=== PATIENT | male | born 1955 | race African-American/Black ===

== ENCOUNTER 2016-10-26 13:07 | Inpatient (IN) | payer OTHER ==
--- NOTE | ~2016-10-26 | OP ---
Record Of Operation [facility] [address] [place]. [address] NAME: MIRIAM ZHANG : 57 STATUS : ADM IN PAT#: [id number] AGE: 61 ADM/REG DATE : 10/26/16 MR#: [id number] REPORT SERV DATE: 10/27/16 DICTATED BY: JENNIFER COOL DATE: 10/27/16 REPORT STATUS : Draft TRANSCRIBED BY: MODL DATE: 10/27/16 DATE OF PROCEDURE: 10/27/2016 ATTENDING: Jennifer Cool MD COMMUNICATIONS PROGRAM MANAGER: None. PREPROCEDURE DIAGNOSIS: Acute kidney injury. POSTPROCEDURE DIAGNOSIS: Acute kidney injury. PROCEDURE PERFORMED: Right common femoral vein Vas-Cath. ANESTHETIC: Local anesthetic. ESTIMATED BLOOD LOSS: Minimal. COMPLICATIONS: None. INDICATIONS: I was called by Mr. Zhang earlier today by the pony ride operator who wanting to perform CRRT on Mr. Zhang for acute kidney injury. We had consent from the family. PROCEDURE COURSE: The patient was in the ICU in supine position. His right groin was examined and was free of infection. We sterilized the right groin with ChloraPrep. We prepped and draped the right groin in a standard fashion. We used the ultrasound to identify the right common femoral vein. It was patent and free of thrombus. We anesthetized the skin and accessed the vein under ultrasound guidance. Once we had access, a wire was passed into the iliac system. The needle was removed and then we widened the entry site with 11-blade scalpel. We passed a series of dilators to dilate up the skin and vein tract after which we inserted a 20 cm straight Vas-Cath over the wire into position, after which the stylet and wire were removed. The catheter flushed and aspirated with ease and caps were placed on the catheter after flushing maneuvers. We sutured the catheter to the skin using interrupted silk suture. Sterile dressing was applied. The patient tolerated the procedure well. He was left in the ICU in stable condition. ROBERT/VALE Jennifer Cool MD / [id number] CC: Lise Obregon MD
--- NOTE | ~2016-10-26 | DS ---
Discharge Summary [facility] [address] [place]. [address] NAME: MIRIAM ACUÑA : 57 STATUS : ADM IN PAT#: [id number] AGE: 61 ADM/REG DATE : 10/26/16 MR#: [id number] REPORT SERV DATE: 11/19/16 DICTATED BY: MICK GROVE DATE: 11/18/16 REPORT STATUS : Draft TRANSCRIBED BY: MODL DATE: 11/18/16 ADMISSION DATE: 10/26/2016 DISCHARGE DATE: 11/18/2016 DISCHARGE DIAGNOSES: 1. Acute gout. 2. End-stage renal disease, currently on hemodialysis. 3. Ischemic cardiomyopathy, currently stable. 4. Chronic atrial fibrillation. 5. Ols-szzebqp-xosofittz diabetes. 6. Generalized debility. 7. Hypertension. 8. Chronic systolic heart failure, currently compensated. 9. Gastrointestinal bleeding, currently stable. 10.Acute hypoxic respiratory failure. 11.Metabolic encephalopathy, resolved. 12.Hypovolemic shock, corrected. 13.Thrombocytopenia, currently resolved. 14.Hyperbilirubinemia, stable at this time. 15.Anemia, acute on chronic. CONSULTANTS DURING THIS HOSPITALIZATION: 1. Dr. Kan Ty [facility]. 2. Dr. Toñito Hairston. 3. Dr. Maren Benitez. 4. Dr. Randal Cool. 5. Dr. Kan Palm. INVASIVE PROCEDURES DONE DURING THIS HOSPITALIZATION: Placement of dialysis access by Dr. Cool. BRIEF HISTORY OF PRESENT ILLNESS: The patient is a 61-year-old, male, presented with ischemic cardiomyopathy, biventricular pacer, and GI bleed with supratherapeutic INR and bleeding. So he was admitted. For detailed history and physical exam, please see note dictated by Dr. Lise Obregon on 10/26/2016. HOSPITAL COURSE: After being admitted to the hospital, this patient was immediately placed in the Intensive Care Unit. Please refer to interim summary dictated by Dr. Maren Benitez and Dr. Kan Palm on 11/03 and 11/09 respectively. We received the patient on to the floor on 11/13/2016. This patient was fairly stable. His H and H remained stable. He has no evidence of further GI bleeding. At this time, we are going to initiate his Coumadin therapy. Again, this patient was noted to have end-stage renal disease and he has now been started on dialysis. He will be dialyzed 3 times a week. He has cardiomyopathy and his ejection fraction is 35%. His rate is controlled. He continues to be on oral amiodarone, digoxin, and Coreg. His diabetes is well managed with Levemir. His anemia once again is stable. This patient had an acute flare-up of gout for which he received colchicine which Discharge Summary [address] [address] NAME: MIRIAM ACUÑA : 57 STATUS : ADM IN PAT#: [id number] AGE: 61 ADM/REG DATE : 10/26/16 MR#: [id number] REPORT SERV DATE: 11/19/16 DICTATED BY: MICK GROVE DATE: 11/18/16 REPORT STATUS : Draft TRANSCRIBED BY: VALE DATE: 11/18/16 will be stopped prior to discharge. He is currently on Medrol Dosepak which will be finished and he has been placed on allopurinol as his home dose. His most recent INR is 1.3 that was done on 11/06. We will have to repeat a PT/INR and Coumadin initiated. Would not heparinize him as he had significant GI bleed. Would suggest resume Coumadin to further continue anticoagulation. This patient is generally debilitated. Physical Therapy has seen the patient and it is recommended that patient be placed in a care home facility for rehab. This patient has been approved and he is awaiting a bed at [facility] which will be available tomorrow. Overall since patient has been on the floor he has done well and he continues to improve medically. DISCHARGE DISPOSITION: To care home facility. DISCHARGE ACTIVITY: Per facility. DISCHARGE DIET: Renal 1800 calorie [place] [employer] Diet. DISCHARGE MEDICATIONS: Allopurinol 100 mg daily, amiodarone 400 mg twice daily, Coreg 6.25 mg twice daily, digoxin 0.125 mg once daily, methylprednisone pack as directed to finish his therapy, Protonix 40 mg twice daily, Florastor one capsule twice daily, Carafate 1 g before each meal four times daily, Levemir 44 units subcu twice daily, Coumadin 6 mg once at bedtime. DISCHARGE FOLLOWUP: With [facility] in the dialysis center. More than 30 minutes spent planning this patient's discharge, reconciling medications, signing all forms for discharge and documenting this discharge. CHRIS/JOJOL Mick Grove M.D. / [id number] CC: Mick Grove M.D.
--- NOTE | ~2016-10-26 | OP ---
Record Of Operation [facility] [address] [place]. [address] NAME: MIRIAM ACUÑA : 57 STATUS : ADM IN [facility]#: [id number] AGE: 61 ADM/REG DATE : 10/26/16 MR#: [id number] REPORT SERV DATE: 10/27/16 DICTATED BY: BRAN SIERRA DATE: 10/27/16 REPORT STATUS : Draft TRANSCRIBED BY: MODL DATE: 10/27/16 DATE OF PROCEDURE: INTUBATION NOTE REASON FOR INTUBATION: Acute hypoxemic respiratory failure and encephalopathy, and inability to protect airway in the setting of critical illness. PREMEDICATION: Etomidate 30 mg IV x1 and Rocuronium 100 mg IV x1 for rapid sequence intubation. PROCEDURE IN DETAIL: A #4 GlideScope blade was advanced into the mouth after premedication with rapid sequence intubation that was described above. A #8 ET tube was passed through the vocal cords under direct visualization on first attempt and secured to the patient with batwing adhesive device including a bite block. There were bilateral breath sounds. Positive color change on CO2 detector and condensation in the tube with bagging. There were no breath sounds auscultated over the fundus of the stomach with bagging. Followup chest x- ray is pending at the time of this dictation. We will follow up. Lowest oxygen saturation during the procedure was 99%. MK/VALE Bran Sierra MD / [id number] CC: Lise Obregon MD
--- NOTE | ~2016-10-26 | IDS ---
Interim Discharge Summary [facility] [address] [place] [place]. [address] NAME: MIRIAM ACUÑA : 57 STATUS : ADM IN [facility]#: [id number] AGE: 61 ADM/REG DATE : 10/26/16 MR#: [id number] REPORT SERV DATE: 11/09/16 DICTATED BY: JAIME PALM IV DATE: 11/08/16 REPORT STATUS : Draft TRANSCRIBED BY: VALE DATE: 11/08/16 ADMISSION DATE: 10/26/2016 DISCHARGE DATE: Date of beginning of the summary is 11/04/2016. Date of end of the summary is 11/08/2016. SIGNIFICANT DIAGNOSES: 1. Acute hypoxemic respiratory failure, now extubated. 2. Persistent shock, off vasopressor agents. 3. Enterobacter bronchitis, on cefepime. 4. Wheezing with improvement on bronchodilator medications. 5. Atrial fibrillation with rapid ventricular response. With adjustments of medications, better rate control. 6. Acute kidney injury. Who continues on continuous renal-replacement therapy. 7. Gastrointestinal bleed without initiation of anticoagulation at this time. 8. Diabetes mellitus. NEW CONSULTANTS OF THE PATIENT: We consulted Dr. Sena for placement of a PermCath. NEW PROCEDURE: PermCath placement on the 11/06/2016. HOSPITAL COURSE: The patient was still on the ventilator on the 11/04/2016. The patient did tolerate some weaning trials, however, had no air leak. He had increase in his systemic steroids with improvement. The patient's extubation was delayed until the 11/07/2016 because of the need for PermCath placement on the 11/06/2016. The patient tolerated extubation without event. He had improvement of his chest radiograph which demonstrated predominantly pulmonary edema with a right effusion. The patient remained on CRRT with removal fluid. There were some difficulties with control of his rate for which he was placed on oral amiodarone. Because of the bleed and the coagulopathy, he remained on pneumatic compression stockings for DVT prophylaxis. The patient did have oozing even from his PermCath placement, though would may need to discuss with Cardiology re-initiation of anticoagulation therapy as an outpatient. He grew Enterobacter from his sputum for which he is on cefepime with clinical improvement. Again, his clinical exam markedly improved with the use of bronchodilator medications. The patient is tolerating a diet with the planned CRRT to stop and then likely transition to hemodialysis this weekend. The patient had stable hemoglobin throughout the week. NM/JOJOL Jaime Palm IV, M.D. Interim Discharge Summary [address] [address] NAME: MIRIAM ACUÑA : 57 STATUS : ADM IN PAT#: [id number] AGE: 61 ADM/REG DATE : 10/26/16 MR#: [id number] REPORT SERV DATE: 11/09/16 DICTATED BY: JAIME PALM IV DATE: 11/08/16 REPORT STATUS : Draft TRANSCRIBED BY: VALE DATE: 11/08/16 / [id number] CC: Lise Obregon MD
--- NOTE | ~2016-10-26 | OP ---
Record Of Operation [facility] [address] [place]. [address] NAME: MIRIAM ACUÑA : 57 STATUS : ADM IN [facility]#: [id number] AGE: 61 ADM/REG DATE : 10/26/16 MR#: [id number] REPORT SERV DATE: 11/06/16 DICTATED BY: JENNIFER COOL DATE: 11/06/16 REPORT STATUS : Draft TRANSCRIBED BY: MODL DATE: 11/06/16 DATE OF PROCEDURE: 11/06/2016 ATTENDING: Jennifer Cool MD SENIOR CONTROLS TECHNICIAN: None. PREPROCEDURE DIAGNOSIS: End-stage renal disease. POSTPROCEDURE DIAGNOSIS: End-stage renal disease. PROCEDURE PERFORMED: PermCath placement right IJ vein with ultrasound and fluoroscopic guidance. ANESTHESIA: MAC and local. SPECIMENS: None. ESTIMATED BLOOD LOSS: Minimal. COMPLICATIONS: None. INDICATIONS: The patient is in the ICU with acute kidney injury and on CRRT dialysis for the last 10 days. He needed more permanent solution for dialysis and was offered PermCath. OPERATIVE COURSE: The patient was brought to the operating room, placed supine position on the operating room table. The patient had general anesthetic without complications. The right neck and chest were prepped and draped in sterile fashion. A time-out was performed. Identified the correct patient, procedure, and site. We began by using ultrasound to identify the right IJ vein. It was compressible and free of thrombus. We anesthetized the skin and accessed the vein under ultrasound guidance. A copy of this picture was placed on the chart for review. Once we had access, wire was passed down through the cardiac chambers into the IVC. The needle was then removed, and we widened the entry site using 11 blade scalpel. We then selected a site on the chest for catheter exit, and we made an 11 blade incision there. We then tunneled the catheter from the chest site to the neck site. We then used a series of dilators to dilate up the skin and vein tract at the IJ site. We then inserted the right breakaway sheath into position under fluoroscopy. Once in position, the wire and dilator were then removed. We then advanced the catheter through the sheath into proper position. The sheath was then split and removed while keeping the catheter in place. The catheter was flushed and aspirated and did both with ease. The catheter was affixed to the skin using interrupted nylon suture. The neck site was closed with interrupted Monocryl suture, and caps were placed on the catheter and a sterile dressing was applied. The patient tolerated the procedure well and was transferred back to the ICU in stable condition. Record Of Operation [facility] [id number] [place]. [address] NAME: MIRIAM ACUÑA : 57 STATUS : ADM IN PAT#: [id number] AGE: 61 ADM/REG DATE : 10/26/16 MR#: [id number] REPORT SERV DATE: 11/06/16 DICTATED BY: JENNIFER COOL DATE: 11/06/16 REPORT STATUS : Draft TRANSCRIBED BY: MODHemant DATE: 11/06/16 [facility]/VALE Jennifer Cool MD / [id number] CC: Lise Obregon MD
--- NOTE | ~2016-10-26 | HP ---
History And Physical [facility] [address] [place]. [address] NAME: MIRIAM ACUÑA : 57 STATUS : ADM IN [facility]#: [id number] AGE: 61 ADM/REG DATE : 10/26/16 MR#: [id number] REPORT SERV DATE: 10/26/16 DICTATED BY: LISE OBREGON DATE: 10/26/16 REPORT STATUS : Draft TRANSCRIBED BY: MODHemant DATE: 10/26/16 DATE OF ADMISSION: 10/26/2016 REASON FOR ADMISSION: GI bleed, hypotension. HISTORY OF PRESENT ILLNESS: Mr. Acuña is a 61-year-old male with a past medical history of ischemic cardiomyopathy, biventricular pacemaker, history of GI bleed, on chronic Coumadin therapy. Again, he comes in with a supratherapeutic INR and bleeding. He has had been having feelings of loss of energy over the last three days with a change in his stool, in which, he has bloody bowel movements which are dark maroon color. Unfortunately, he also now has acute on chronic kidney injury with hyperkalemia. The patient has been treated here in the emergency room, GI has been called. Currently, getting reversal agents for his elevated INR, Coumadin has been held. PAST MEDICAL HISTORY: Ischemic cardiomyopathy, chronic atrial fibrillation, diabetes, stage 3 chronic kidney disease, chronic systolic heart failure. HOME MEDICATIONS: Home medication list reviewed and is filled out. ALLERGIES: NO KNOWN DRUG ALLERGIES. FAMILY HISTORY: Other family members with heart disease. SOCIAL HISTORY: The patient currently is by himself. No alcohol or illicit drug use. REVIEW OF SYSTEMS: All per a review of systems reviewed and is otherwise negative. PHYSICAL EXAMINATION: VITAL SIGNS: Afebrile, heart rate currently in 90s, blood pressure currently in the 80s systolic, oxygen saturation 100% on 2 L nasal cannula. GENERAL: The patient is currently sleepy, easily arousable, has a quick onset of sleep and states that he has a history of sleep apnea, but he is not using CPAP therapy, not interested in attempting that currently. HEENT: No JVD, no lymphadenopathy, neck is supple. PULMONARY: Lungs are clear to auscultation bilaterally, no wheezing. CARDIAC: Regular rate, no murmurs, somewhat distant. ABDOMEN: Soft, nontender, nondistended with positive bowel sounds. EXTREMITIES: Lower extremity has edema, lukewarm, faint pulses. LABORATORY EXAMINATION: Hemoglobin 7.4, and INR 8.3, potassium 6.4, creatinine 8.2, BUN 101. BNP 941, with a troponin of 0.13. ASSESSMENT/PLAN: Mr. Acuña is a 61-year-old gentleman with a past medical history noted above, who presents to the intensive care unit with a GI bleed and acute on chronic kidney injury. History And Physical [address] [address] NAME: MIRIAM ACUÑA : 57 STATUS : ADM IN [facility]#: [id number] AGE: 61 ADM/REG DATE : 10/26/16 MR#: [id number] REPORT SERV DATE: 10/26/16 DICTATED BY: LISE OBREGON DATE: 10/26/16 REPORT STATUS : Draft TRANSCRIBED BY: VALE DATE: 10/26/16 1. Gastrointestinal bleed: The patient is currently off Coumadin therapy, received fresh frozen plasma, and he is receiving his first unit of blood. He will then receive fresh frozen plasma and then an another unit of blood. We will also start him on IV fluids. 2. Hemorrhagic shock: As noted above, the patient is getting blood products, FFP, and an IV fluids for. 3. 48 hours. 4. Acute on chronic kidney injury: Most likely, prerenal etiology. At this moment in time, we will insert a Hoffmann, I would treat his hyperkalemia and check BMP in a short period of time, in case he needs either Kayexalate or further treatment thereof. 5. Atrial fibrillation: We will restart home digoxin, but hold black on beta glenn therapy. We will hold anticoagulation, recommend that there is a conversation between Cardiology and Gastroenterology with the concern of this patient being on Coumadin, as the patient has now failed twice with a supratherapeutic INR. Whether this patient will be a candidate for Pradaxa as here is an antidote for Pradaxa currently in the works. However, there is high risk of GI bleed with Pradaxa of note. We would recommend a further discussion once the patient is not so critical with the discussion of his anticoagulation strategy, as he clearly is not adequately controlled. From that standpoint. 6. Diet: The patient is currently n.p.o. 7. Code status: The patient is currently full code. 8. hyperkalemia: As noted above. 9. Critical care time: 45 minutes. HFQ/MODL Lise Obregon MD / [id number] CC: Lise Obregon MD
--- NOTE | ~2016-10-26 | CN ---
Consultation Report [facility] [address] [place]. [address] NAME: MIRIAM ACUÑA : 57 STATUS : ADM IN [facility]#: [id number] AGE: 61 ADM/REG DATE : 10/26/16 MR#: [id number] REPORT SERV DATE: 10/27/16 DICTATED BY: TOÑITO HAIRSTON DATE: 10/26/16 REPORT STATUS : Draft TRANSCRIBED BY: MODL DATE: 10/26/16 CONSULTATION REPORT DATE OF CONSULTATION: 10/26/2016 INDICATION: Patient with severe anemia. HISTORY OF PRESENT ILLNESS: The patient is a 61-year-old gentleman with multiple cardiac history, cardiomyopathy with ejection fraction of 35%. The patient was recently admitted in September for GI bleed. Dr. Somers performed the panendoscopy and colonoscopy. I do not believe any significant findings were noted. There is only a colonoscopy report. Upper endoscopy report is not available. The patient is now presenting, feeling weak with shortness of breath with a hemoglobin of 7.5, INR of 8.3. PAST MEDICAL HISTORY: Chronic systolic heart failure, cardiomyopathy, renal insufficiency, diabetes, atrial fibrillation, gout. MEDICATIONS: See NOV. ALLERGIES: NO KNOWN DRUG ALLERGIES. PHYSICAL EXAMINATION: VITAL SIGNS: Temperature is 96.9, blood pressure 89/48, pulse of 70. HEAD: Normocephalic, atraumatic. THROAT: Clear. LUNGS: Decreased breath sounds. HEART: S1, S2 with 2/6 systolic ejection murmur. ABDOMEN: Normoactive bowel sounds. Soft, nondistended, nontender. EXTREMITIES: 1+ edema. LABORATORY STUDIES: Show sodium 136, potassium 6.5, BUN 108, creatinine 8.23, white count of 7.9, H and H of 7.5 and 22.6, platelet count of 113, prothrombin time of 68 with INR of 8.3. IMPRESSION: Patient with severe anemia, exacerbated by anticoagulation. Hold Coumadin. Agree with fresh frozen and transfusion. Follow H and H. Dr. Somers will review his records on Friday to see if repeat endoscopy is necessary. HP/VALE Toñito Hairston M.D. Consultation Report [facility] [address] [address] NAME: MIRIAM ACUÑA : 57 STATUS : ADM IN PAT#: [id number] AGE: 61 ADM/REG DATE : 10/26/16 MR#: [id number] REPORT SERV DATE: 10/27/16 DICTATED BY: TOÑITO HAIRSTON DATE: 10/26/16 REPORT STATUS : Draft TRANSCRIBED BY: VALE DATE: 10/26/16 / [id number]
--- NOTE | ~2016-10-26 | IDS ---
Interim Discharge Summary [facility] [address] [place]. [address] NAME: MIRIAM ACUÑA : 57 STATUS : ADM IN [facility]#: [id number] AGE: 61 ADM/REG DATE : 10/26/16 MR#: [id number] REPORT SERV DATE: 11/03/16 DICTATED BY: BRAN SIERRA DATE: 11/03/16 REPORT STATUS : Draft TRANSCRIBED BY: MODL DATE: 11/03/16 ADMISSION DATE: 10/26/2016 DISCHARGE DATE: DATE OF SUMMARY: 11/03/2016. HISTORY OF PRESENT ILLNESS: Mr. Acuña is a 61-year-old gentleman with the underlying history of ischemic cardiomyopathy, status post biventricular pacemaker with previous history of GI bleeding last month requiring admission to the MICU. He was on chronic Coumadin therapy at that point. He returned with supratherapeutic INR and bleeding after his Coumadin was restarted following hospitalization, complaining of generalized weakness and bloody bowel movements. Of note, he was also found to have acute kidney injury with marked hyperkalemia and was admitted to the CCU by Dr. Obregon on 10/26/2016. He was later seen by Nephrology, who initiated CRRT in the setting of metabolic acidosis and hypovolemic shock. He underwent correction of his Coumadin coagulopathy with FFP, vitamin K, and received several transfusions of packed red cells. He was intubated for airway protection shortly after admission and required both vasopressin and Levophed for hemodynamic support and does have been weaned throughout the week. He has also been on stress dose steroids. At this point, he is clinically improving. Mechanical ventilation support is being weaned and volume removal via ultrafiltration is in process. He was weaned off the last bit of Levophed yesterday and has been more awake and alert since we have lightened his sedation. Over the last couple of days, he does follow commands. ACTIVE PROBLEM LIST: 1. Acute hypoxemic respiratory failure, this is ventilator day 8, continue daily spontaneous breathing trials off sedation, ongoing ultrafiltration for volume removal, we will certainly facilitate to extubation. Of note, he does have a right pleural effusion, which may require thoracentesis in Interventional Radiology to expedite vent weaning. 2. Acute renal failure, requiring CRRT which was started on 10/27/2016. 3. Gastrointestinal bleed with supratherapeutic INR, status post Coumadin use, now with an H and H stable in the seven to eight range without any clinical evidence of bleeding. We will continue to monitor him closely and the Coumadin remains on hold. 4. Acute blood loss anemia, secondary to #3. 5. Hypovolemic plus or minus septic shock with associated metabolic acidosis, which is remarkably improved. He has now been weaned off all pressors and his acidosis has been corrected. 6. Thrombocytopenia in the setting of critical illness. Continue to monitor. 7. Upward trending in a total bilirubin with upward trending INR without ongoing Coumadin use. We will check abdominal ultrasound. I suspect that medications being administered during his hospitalization may be the culprit. 8. Prophylaxis, SCDs and MARIO's in the setting of GI bleeding. He was on a proton pump inhibitor infusion and has been scaled back to IV b.i.d. by Dr. Somers, who has been following along for gastroenterology. He is a full code and we have updated his family multiple times throughout the week. His Interim Discharge Summary [address] [address] NAME: MIRIAM ACUÑA : 57 STATUS : ADM IN [facility]#: [id number] AGE: 61 ADM/REG DATE : 10/26/16 MR#: [id number] REPORT SERV DATE: 11/03/16 DICTATED BY: BRAN SIERRA DATE: 11/03/16 REPORT STATUS : Draft TRANSCRIBED BY: VALE DATE: 11/03/16 sister and daughter are his primary medical decision makers and have visited a couple of times, but were limited by transportation as they ride the bus. Please call with questions. MK/VALE Bran Sierra MD / [id number] CC: Lise Obregon MD
--- NOTE | ~2016-10-26 | DS ---
Discharge Summary [place] [id number] [place]. [address] NAME: MIRIAM ACUÑA : 57 STATUS : DIS IN PAT#: [id number] AGE: 61 ADM/REG DATE : 10/26/16 MR#: [id number] REPORT SERV DATE: 11/20/16 DICTATED BY: SARWAT SEXTON DATE: 11/19/16 REPORT STATUS : Draft TRANSCRIBED BY: MODL DATE: 11/19/16 ADMISSION DATE: 10/26/2016 DISCHARGE DATE: 11/19/2016 ADDENDUM: Original discharge summary dictated by Dr. Grove on 11/18/2016. The patient had been cleared for a safe transition to [facility]. A bed only became available today. He was seen by the undersigned. His right wrist, left ankle, and both knees symptomatic gouty arthritic joints were improved. He noted that he did not like the food here, so he was not eating as much. He was noted to have blood sugars as low as 60 and all blood sugars on 11/18/2016 had been 85 or less. On exam, he was appropriate. His lungs were clear. His heart was regular with a systolic murmur. His abdomen was nontender. He had left wrist, both knees, and left ankle puffiness and mild tenderness to palpation. He had a nontender PICC in his right arm. His white count was 5.8, hemoglobin 8.5, and platelets 141,000. His renal function profile: Sodium 140, potassium 4.5, chloride 105, CO2 of 23, BUN 39, creatinine 4.19, glucose 61, calcium 8.5, phosphorus 2.2, and albumin 2.6. Blood sugars are as noted. It was felt that he still maintained a degree of stability where he could be safely transitioned to [facility] as outlined by Dr. Grove. All medications reviewed. The only changes on transfer today will be using correction 2 scale insulin before meals but not at bedtime and holding b.i.d. Levemir 4 units unless his blood sugar is greater than 140. Above discussed with RN, ed case manager, and [facility] liaison. Discharge time greater than 30 minutes. DD/JOJOL Sarwta Sexton M.D. / [id number] CC: Discharge Summary [address] [facility] [place] [address] NAME: MIRIAM ACUÑA : 57 STATUS : DIS IN PAT#: [id number] AGE: 61 ADM/REG DATE : 10/26/16 MR#: [id number] REPORT SERV DATE: 11/20/16 DICTATED BY: SARWAT SEXTON DATE: 11/19/16 REPORT STATUS : Draft TRANSCRIBED BY: MODL DATE: 11/19/16 Sarwat Sexton M.D.
--- NOTE | ~2016-10-26 | CN ---
Consultation Report [facility] [address] [place]. [address] NAME: MIRIAM ACUÑA : 57 STATUS : ADM IN PAT#: [id number] AGE: 61 ADM/REG DATE : 10/26/16 MR#: [id number] REPORT SERV DATE: 10/27/16 DICTATED BY: JAIME IZAGUIRRE DATE: 10/26/16 REPORT STATUS : Draft TRANSCRIBED BY: MODL DATE: 10/26/16 DATE OF CONSULTATION: 10/26/2016 REASON FOR CONSULT: Acute kidney injury/CKD/hyperkalemia. HISTORY OF PRESENT ILLNESS: The patient is a 61-year-old, male, who was recently hospitalized at [facility] in September 2016. At that time, he presented with acute kidney injury, but did not require dialysis. Creatinine was 4.5, on admission and improved to 1.6, at which time, nephrology signed off on October 09. An outpatient lab performed on October 16, showed creatinine of 3.3, with potassium of 4.8. He came in earlier today to the emergency room with a several hour history of melanotic stool. On presentation his BUN was 101, creatinine is 8.3, potassium 6.4, digoxin 0.3. He was hypotensive and started on IV fluids. Repeat labs this afternoon showed BUN 108, creatinine 8.2, and potassium 6.5. Hoffmann catheter was placed and only 100 mL of urine was obtained. He is in the ICU and blood pressure at the time of my consult has dropped precipitously. He has now been given albumin and we are trying to obtain another IV access. PAST MEDICAL HISTORY: 1. Chronic kidney disease with baseline creatinine 1.3-1.5, as recently as August 2016 with recent acute kidney injury, as per HPI. 2. AICD/EF 35%. 3. Atrial fibrillation with chronic Coumadin. 4. Endoscopy September 2016, with polyps, but they were not removed because of anticoagulation. 5. Imj-bpbhmvp-iwqfahdao diabetes mellitus on metformin. 6. Obesity with suspected sleep apnea. 7. Gout. MEDICATIONS: At home, allopurinol 200 mg daily, Bumex 1 mg daily, Coreg 25 mg b.i.d., digoxin 0.125 mg daily, BiDil 20/37.5 mg three times per day, lisinopril 2.5 mg daily, magnesium oxide, metformin 500 mg daily, Protonix 40 mg b.i.d., potassium 40 mEq daily, Carafate 1 g q.a.c. and bedtime, Coumadin 6 mg at bedtime. FAMILY HISTORY: No ESRD. SOCIAL HISTORY: Nonsmoker. Single. REVIEW OF SYSTEMS: Significant for events as per HPI with recent hospitalization here in September 2016 and GI bleed. PHYSICAL EXAMINATION: VITAL SIGNS: Temperature 96.9, pulse 70, respirations 16, blood pressure 89/48. GENERAL: He is a pleasant, male, who awakens, but falls back asleep very easily. He does answer questions appropriately. Consultation Report [address] [place]. [address] NAME: MIRIAM ACUÑA : 57 STATUS : ADM IN [facility]#: [id number] AGE: 61 ADM/REG DATE : 10/26/16 MR#: [id number] REPORT SERV DATE: 10/27/16 DICTATED BY: JAIME IZAGUIRRE DATE: 10/26/16 REPORT STATUS : Draft TRANSCRIBED BY: VALE DATE: 10/26/16 HEENT: Sclerae without icterus. Conjunctivae not injected. Oropharynx is clear. Mucous membranes are dry. No JVD. HEART: He has paced rhythm regular 2/6 murmur. No rub. He has bilateral rhonchi without dyspnea or tachypnea. ABDOMEN: Obese, soft, nontender, nondistended. Bowel sounds present throughout without rebound, guarding, peritoneal signs. He has 1+ bilateral pitting edema. SKIN: Shows no rash. NEURO: Grossly nonfocal. He has minimal urine output in the Hoffmann catheter. LABORATORY DATA: Sodium 136, potassium 6.5, BUN 108, creatinine 8.2, calcium 8.1, albumin 2.3. Total bilirubin 2.0, digoxin 0.3, BNP 941, liver function tests normal. Troponin 0.13. Chest x-ray showed cardiomegaly without active infiltrates. A renal ultrasound on 10/01/2016, showed no hydro. White count 7.9000 without eosinophilia, hemoglobin 7.5, platelets 113,000, INR 8.3. ASSESSMENT/PLAN: The patient has chronic kidney disease with previous baseline creatinine 1.3-1.5. He presents with another episode of acute kidney injury in the setting of azotemia, anemia, suspected GI bleed, hypotension with hypovolemic shock. Cardiomyopathy with EF 35%. AICD, hyperkalemia, hypoalbuminemia, and coagulopathy. More than likely, he has another GI bleed and he has developed ATN from renal hypoperfusion due to relative hypotension. Hold AALIYAH inhibitor, metformin, potassium, and diuretics. Pressor support, IV fluids, and albumin urgently tonight. Reverse INR. Hopefully, dialysis can be avoided with fluid resuscitation. However, he may need TELE TECH in the next 24 to 48 hours, however, his coagulopathy will make line placement difficult. We will manage medically tonight and follow closely with you. Appreciate consult. NC/MODL Jaime Izaguirre M.D. / [id number] CC: Lise Obregon MD
[2016-10-26 11:52] LABS: BASOPHILS 0.3 %; BASOPHILS ABSOLUTE 0.02 10/3/uL (0.0-0.16); EOSINOPHILS 1.6 %; EOSINOPHILS ABSOLUTE 0.11 10/3/uL (0.0-0.53); ER CBC TAT 0 Hrs 11 Mins; HEMOGLOBIN 7.4 g/dL (13.6-17.8); IMMATURE GRANULOCYTES 0.1 %; IMMATURE GRANULOCYTES ABSOLUTE 0.01 10/3/uL (0.0-0.11); LYMPHOCYTES 15.6 %; LYMPHOCYTES ABSOLUTE 1.08 10/3/uL (0.67-4.30); MEAN CORPUS HGB CONC 33.6 g/dL (32.0-36.0); MEAN CORPUSCULAR VOLUME 86.3 fL (80-100); MEAN PLATELET VOLUME 9.9 fL (9.2-13.0); MONOCYTES 16.5 %; MONOCYTES ABSOLUTE 1.14 10/3/uL (0.21-1.20); NEUTROPHILS 65.9 %; NEUTROPHILS ABSOLUTE 4.57 10/3/uL (2.02-8.40); RBC DISTRIBUTION WIDTH 16.6 % (12.0-16.0); RED CELL COUNT 2.55 10/6/uL (4.7-6.1); WHITE BLOOD CELLS 6.9 10/3/uL (4.5-10.5)
[2016-10-26 11:55] LABS: MANUAL DIFF NO %; PLATELET COUNT 114 10/3/uL (150-400)
[2016-10-26 12:01] LABS: PARTIAL THROMBO TIME 57.9 SEC (22.5-37.2)
[2016-10-26 12:21] LABS: A/G RATIO 0.5 (0.7-1.9); ALBUMIN 2.3 G/DL (3.5-5.0); CALCIUM, SERUM 8.2 MG/DL (8.5-10.4); CHLORIDE, SERUM 98 MMOL/L (96-112); CO2 (CARBON DIOXIDE) 27 MMOL/L (24-34); GLOBULIN 4.6 G/DL (2.5-4.1); GLUCOSE, SERUM 89 MG/DL (60-99); SGPT(ALT) 10 U/L (5-65); TOTAL PROTEIN 6.9 G/DL (6.0-8.5)
[2016-10-26 12:37] LABS: PROTIME (NOT ORD) 68.1 SEC (12.0-14.5); SGOT(AST) 12 U/L (5-40); SODIUM, SERUM 137 MMOL/L (135-148)
[2016-10-26 12:38] LABS: INTERNATIONAL NORMAL RATI 8.3 UNITS (-)
[2016-10-26 12:53] LABS: ALKALINE PHOSPHATASE 115 U/L (45-117); BUN (BLOOD UREA NITROGEN) 101 MG/DL (6-23); CREATININE 8.27 MG/DL (0.70-1.30); DIGOXIN 0.3 NG/ML (0.8-2.0); GFR AFRICAN AMERICAN 7 ML/MIN (>=60); GFR NON AFRICAN AMERICAN 6 ML/MIN (>=60); POTASSIUM, SERUM 6.4 MMOL/L (3.5-5.3); TROPONIN I 0.13 NG/ML (<0.05)
[2016-10-26 13:07] LABS: ALLENS TEST Pos; BE (BASE EXCESS) -0.6 MEQ/L (0 +/- 2.5); CARBOXYHEMOGLOBIN 2.6 % (0-3); HCO3 (ACTUAL BICARBONATE) 25.3 MEQ/L (23-27); HEMOBLOGIN CONTENT 7.9 G/DL (14-18); INSTRUMENT SERIAL # 8087; METHEMOGLOBIN 0.2 % (0-3); O2 CONTENT 9.9 VOL% (18-24); PCO2 (CO2 TENSION) 48 MMHG (35-45); PO2 (O2 TENSION) 66 MMHG (79-93); SAMPLE Arterial; pH 7.34 (7.37-7.43)
[~2016-10-26 13:07] MED LIST: BC HEADACHE PO; BIDIL20/37 PO; BUM1 PO; COREG25 PO; COUMADIN6 MG PO; DEMA20 PO; DIGITEK0.125 MG PO; GLUCOPHAGE1000 MG PO; HALF81 PO; ICY HOT OINTMENT TOP; ICY HOT16 % TOP; KLOR-CON M2020 MEQ PO; L20 PO; LANTUS SC; LIPITOR40 PO; MAGOX4 PO; PRIN2.5 PO; PROTONIX PO; STOOL SOFTENER PO; SUCR PO; ULTRAM50 PO; Z100 PO
[2016-10-26 17:03] LABS: BASOPHILS 0.1 %; BASOPHILS ABSOLUTE 0.01 10/3/uL (0.0-0.16); EOSINOPHILS 1.4 %; EOSINOPHILS ABSOLUTE 0.11 10/3/uL (0.0-0.53); HEMATOCRIT 22.6 % (40.0-51.0); HEMOGLOBIN 7.5 g/dL (13.6-17.8); IMMATURE GRANULOCYTES 0.3 %; IMMATURE GRANULOCYTES ABSOLUTE 0.02 10/3/uL (0.0-0.11); LYMPHOCYTES 15.4 %; LYMPHOCYTES ABSOLUTE 1.21 10/3/uL (0.67-4.30); MEAN CORPUS HGB CONC 33.2 g/dL (32.0-36.0); MEAN CORPUSCULAR HEMOGLOB 28.4 pg (26.0-34.0); MEAN CORPUSCULAR VOLUME 85.6 fL (80-100); MEAN PLATELET VOLUME 10.4 fL (9.2-13.0); MONOCYTES 19.4 %; MONOCYTES ABSOLUTE 1.53 10/3/uL (0.21-1.20); NEUTROPHILS 63.4 %; NEUTROPHILS ABSOLUTE 4.99 10/3/uL (2.02-8.40); PLATELET COUNT 113 10/3/uL (150-400); RED CELL COUNT 2.64 10/6/uL (4.7-6.1); WHITE BLOOD CELLS 7.9 10/3/uL (4.5-10.5)
[2016-10-26 17:04] LABS: MANUAL DIFF NO %
[2016-10-26 17:16] LABS: CALCIUM, SERUM 8.1 MG/DL (8.5-10.4); CHLORIDE, SERUM 101 MMOL/L (96-112); CO2 (CARBON DIOXIDE) 25 MMOL/L (24-34); CREATININE 8.23 MG/DL (0.70-1.30); GFR AFRICAN AMERICAN 7 ML/MIN (>=60); GFR NON AFRICAN AMERICAN 6 ML/MIN (>=60); GLUCOSE, SERUM 87 MG/DL (60-99); SODIUM, SERUM 136 MMOL/L (135-148)
[2016-10-26 17:17] LABS: BUN (BLOOD UREA NITROGEN) 108 MG/DL (6-23); POTASSIUM, SERUM 6.5 MMOL/L (3.5-5.3)
[2016-10-26 23:06] LABS: BASOPHILS 0.1 %; BASOPHILS ABSOLUTE 0.01 10/3/uL (0.0-0.16); EOSINOPHILS 1.1 %; EOSINOPHILS ABSOLUTE 0.09 10/3/uL (0.0-0.53); HEMATOCRIT 23.1 % (40.0-51.0); HEMOGLOBIN 7.6 g/dL (13.6-17.8); IMMATURE GRANULOCYTES 0.3 %; IMMATURE GRANULOCYTES ABSOLUTE 0.02 10/3/uL (0.0-0.11); LYMPHOCYTES ABSOLUTE 1.03 10/3/uL (0.67-4.30); MEAN CORPUS HGB CONC 32.9 g/dL (32.0-36.0); MEAN CORPUSCULAR HEMOGLOB 28.3 pg (26.0-34.0); MEAN CORPUSCULAR VOLUME 85.9 fL (80-100); MONOCYTES 14.4 %; MONOCYTES ABSOLUTE 1.14 10/3/uL (0.21-1.20); NEUTROPHILS 71.1 %; NEUTROPHILS ABSOLUTE 5.64 10/3/uL (2.02-8.40); PLATELET COUNT 122 10/3/uL (150-400); RBC DISTRIBUTION WIDTH 17.1 % (12.0-16.0); RED CELL COUNT 2.69 10/6/uL (4.7-6.1); WHITE BLOOD CELLS 7.9 10/3/uL (4.5-10.5)
[2016-10-26 23:08] LABS: MANUAL DIFF NO %
[2016-10-26 23:15] LABS: INTERNATIONAL NORMAL RATI 4.3 UNITS (-); PARTIAL THROMBO TIME 52.8 SEC (22.5-37.2)
[2016-10-26 23:20] LABS: PROTIME (NOT ORD) 41.1 SEC (12.0-14.5)
[2016-10-26 23:37] LABS: ALBUMIN 2.4 G/DL (3.5-5.0); BUN (BLOOD UREA NITROGEN) 110 MG/DL (6-23); CALCIUM, SERUM 7.9 MG/DL (8.5-10.4); CHLORIDE, SERUM 99 MMOL/L (96-112); CO2 (CARBON DIOXIDE) 25 MMOL/L (24-34); CREATININE 7.63 MG/DL (0.70-1.30); GFR AFRICAN AMERICAN 8 ML/MIN (>=60); GFR NON AFRICAN AMERICAN 7 ML/MIN (>=60); GLUCOSE, SERUM 155 MG/DL (60-99); PHOSPHORUS, SERUM 6.5 MG/DL (2.5-4.5); SODIUM, SERUM 136 MMOL/L (135-148)
[2016-10-27 04:54] LABS: BASOPHILS 0.1 %; BASOPHILS ABSOLUTE 0.01 10/3/uL (0.0-0.16); EOSINOPHILS 0.3 %; EOSINOPHILS ABSOLUTE 0.03 10/3/uL (0.0-0.53); HEMATOCRIT 23.4 % (40.0-51.0); HEMOGLOBIN 7.5 g/dL (13.6-17.8); IMMATURE GRANULOCYTES 0.2 %; IMMATURE GRANULOCYTES ABSOLUTE 0.02 10/3/uL (0.0-0.11); LYMPHOCYTES 4.4 %; LYMPHOCYTES ABSOLUTE 0.48 10/3/uL (0.67-4.30); MEAN CORPUS HGB CONC 32.1 g/dL (32.0-36.0); MEAN CORPUSCULAR HEMOGLOB 28.3 pg (26.0-34.0); MEAN CORPUSCULAR VOLUME 88.3 fL (80-100); MEAN PLATELET VOLUME 9.3 fL (9.2-13.0); MONOCYTES 15.2 %; MONOCYTES ABSOLUTE 1.64 10/3/uL (0.21-1.20); NEUTROPHILS 79.8 %; NEUTROPHILS ABSOLUTE 8.63 10/3/uL (2.02-8.40); PLATELET COUNT 101 10/3/uL (150-400); RBC DISTRIBUTION WIDTH 16.8 % (12.0-16.0); RED CELL COUNT 2.65 10/6/uL (4.7-6.1); WHITE BLOOD CELLS 10.8 10/3/uL (4.5-10.5)
[2016-10-27 04:56] LABS: MANUAL DIFF NO %
[2016-10-27 05:06] LABS: INTERNATIONAL NORMAL RATI 2.3 UNITS (-); PARTIAL THROMBO TIME 42.4 SEC (22.5-37.2)
[2016-10-27 05:07] LABS: PROTIME (NOT ORD) 25.3 SEC (12.0-14.5)
[2016-10-27 05:12] LABS: ALBUMIN 2.7 G/DL (3.5-5.0); CALCIUM, SERUM 8.2 MG/DL (8.5-10.4); CHLORIDE, SERUM 101 MMOL/L (96-112); CO2 (CARBON DIOXIDE) 24 MMOL/L (24-34); CREATININE 7.72 MG/DL (0.70-1.30); GFR AFRICAN AMERICAN 8 ML/MIN (>=60); GFR NON AFRICAN AMERICAN 7 ML/MIN (>=60); GLUCOSE, SERUM 131 MG/DL (60-99); PHOSPHORUS, SERUM 6.2 MG/DL (2.5-4.5); POTASSIUM, SERUM 5.4 MMOL/L (3.5-5.3); SODIUM, SERUM 137 MMOL/L (135-148)
[2016-10-27 05:13] LABS: BUN (BLOOD UREA NITROGEN) 104 MG/DL (6-23)
[2016-10-27 05:31] LABS: ALLENS TEST Pos; BE (BASE EXCESS) -5.6 MEQ/L (0 +/- 2.5); CARBOXYHEMOGLOBIN 0.5 % (0-3); HCO3 (ACTUAL BICARBONATE) 22.2 MEQ/L (23-27); HEMOBLOGIN CONTENT 8.9 G/DL (14-18); INSTRUMENT SERIAL # 35151; METHEMOGLOBIN 0.7 % (0-3); MODE CMV; O2 CONTENT 13.6 VOL% (18-24); OPERATOR ID 31061; PCO2 (CO2 TENSION) 56 MMHG (35-45); PO2 (O2 TENSION) 456 MMHG (79-93); SAMPLE Arterial; TIDAL VOLUME 400 ML; pH 7.21 (7.37-7.43)
[2016-10-27 12:03] LABS: BASOPHILS 0 %; EOSINOPHILS 0 %; HEMATOCRIT 23.3 % (40.0-51.0); IMMATURE GRANULOCYTES 0.2 %; IMMATURE GRANULOCYTES ABSOLUTE 0.02 10/3/uL (0.0-0.11); LYMPHOCYTES 4.8 %; LYMPHOCYTES ABSOLUTE 0.58 10/3/uL (0.67-4.30); MEAN CORPUSCULAR HEMOGLOB 28.8 pg (26.0-34.0); MEAN PLATELET VOLUME 9.6 fL (9.2-13.0); MONOCYTES 6.3 %; MONOCYTES ABSOLUTE 0.77 10/3/uL (0.21-1.20); NEUTROPHILS 88.7 %; NEUTROPHILS ABSOLUTE 10.79 10/3/uL (2.02-8.40); PLATELET COUNT 104 10/3/uL (150-400); RBC DISTRIBUTION WIDTH 16.4 % (12.0-16.0); RED CELL COUNT 2.78 10/6/uL (4.7-6.1); WHITE BLOOD CELLS 12.2 10/3/uL (4.5-10.5)
[2016-10-27 12:06] LABS: MANUAL DIFF NO %; MEAN CORPUS HGB CONC 34.3 g/dL (32.0-36.0); MEAN CORPUSCULAR VOLUME 83.8 fL (80-100)
[2016-10-27 12:10] LABS: INTERNATIONAL NORMAL RATI 1.7 UNITS (-)
[2016-10-27 12:11] LABS: PROTIME (NOT ORD) 20.2 SEC (12.0-14.5)
[2016-10-27 12:18] LABS: A/G RATIO 0.7 (0.7-1.9); ALBUMIN 3.1 G/DL (3.5-5.0); ALKALINE PHOSPHATASE 108 U/L (45-117); CALCIUM, SERUM 8.7 MG/DL (8.5-10.4); CHLORIDE, SERUM 99 MMOL/L (96-112); CO2 (CARBON DIOXIDE) 21 MMOL/L (24-34); GLOBULIN 4.4 G/DL (2.5-4.1); PHOSPHORUS, SERUM 5.6 MG/DL (2.5-4.5); POTASSIUM, SERUM 5.5 MMOL/L (3.5-5.3); SGOT(AST) 16 U/L (5-40); SGPT(ALT) 14 U/L (5-65); SODIUM, SERUM 138 MMOL/L (135-148); TOTAL PROTEIN 7.5 G/DL (6.0-8.5)
[2016-10-27 12:19] LABS: BUN (BLOOD UREA NITROGEN) 107 MG/DL (6-23); CREATININE 7.06 MG/DL (0.70-1.30); GFR AFRICAN AMERICAN 9 ML/MIN (>=60); GFR NON AFRICAN AMERICAN 8 ML/MIN (>=60); GLUCOSE, SERUM 166 MG/DL (60-99); TOTAL BILIRUBIN 2.9 MG/DL (0-1.2)
[2016-10-27 13:14] LABS: INSTRUMENT SERIAL # 8087; pH 7.43 (7.37-7.43)
[2016-10-27 13:15] LABS: ALLENS TEST Pos; CARBOXYHEMOGLOBIN 1.3 % (0-3); HCO3 (ACTUAL BICARBONATE) 18.4 MEQ/L (23-27); HEMOBLOGIN CONTENT 9.9 G/DL (14-18); METHEMOGLOBIN 0.1 % (0-3); MODE CMV; O2 CONTENT 13.8 VOL% (18-24); PCO2 (CO2 TENSION) 28 MMHG (35-45); PO2 (O2 TENSION) 119 MMHG (79-93); SAMPLE Arterial; TIDAL VOLUME 500 ML
[2016-10-27 21:01] LABS: BASOPHILS 0.1 %; BASOPHILS ABSOLUTE 0.01 10/3/uL (0.0-0.16); EOSINOPHILS 0 %; HEMATOCRIT 23.9 % (40.0-51.0); HEMOGLOBIN 8.1 g/dL (13.6-17.8); IMMATURE GRANULOCYTES 0.2 %; IMMATURE GRANULOCYTES ABSOLUTE 0.02 10/3/uL (0.0-0.11); LYMPHOCYTES 9.1 %; LYMPHOCYTES ABSOLUTE 0.83 10/3/uL (0.67-4.30); MEAN CORPUS HGB CONC 33.9 g/dL (32.0-36.0); MEAN CORPUSCULAR HEMOGLOB 28.3 pg (26.0-34.0); MEAN CORPUSCULAR VOLUME 83.6 fL (80-100); MONOCYTES 3.9 %; MONOCYTES ABSOLUTE 0.36 10/3/uL (0.21-1.20); NEUTROPHILS 86.7 %; NEUTROPHILS ABSOLUTE 7.94 10/3/uL (2.02-8.40); PLATELET COUNT 93 10/3/uL (150-400); RBC DISTRIBUTION WIDTH 16.6 % (12.0-16.0); RED CELL COUNT 2.86 10/6/uL (4.7-6.1); WHITE BLOOD CELLS 9.2 10/3/uL (4.5-10.5)
[2016-10-27 21:02] LABS: MANUAL DIFF NO %
[2016-10-27 21:13] LABS: BUN (BLOOD UREA NITROGEN) 75 MG/DL (6-23); CALCIUM, SERUM 8.5 MG/DL (8.5-10.4); CHLORIDE, SERUM 103 MMOL/L (96-112); CO2 (CARBON DIOXIDE) 22 MMOL/L (24-34); CREATININE 4.91 MG/DL (0.70-1.30); GFR AFRICAN AMERICAN 14 ML/MIN (>=60); GFR NON AFRICAN AMERICAN 12 ML/MIN (>=60); GLUCOSE, SERUM 140 MG/DL (60-99); POTASSIUM, SERUM 5.1 MMOL/L (3.5-5.3); SODIUM, SERUM 139 MMOL/L (135-148)
[2016-10-28 02:57] LABS: BASOPHILS 0 %; EOSINOPHILS 0 %; HEMOGLOBIN 7.9 g/dL (13.6-17.8); IMMATURE GRANULOCYTES 0.5 %; IMMATURE GRANULOCYTES ABSOLUTE 0.04 10/3/uL (0.0-0.11); LYMPHOCYTES 8.4 %; LYMPHOCYTES ABSOLUTE 0.66 10/3/uL (0.67-4.30); MEAN CORPUS HGB CONC 34.3 g/dL (32.0-36.0); MEAN CORPUSCULAR HEMOGLOB 28.4 pg (26.0-34.0); MEAN CORPUSCULAR VOLUME 82.7 fL (80-100); MEAN PLATELET VOLUME 9.6 fL (9.2-13.0); MONOCYTES 5.6 %; MONOCYTES ABSOLUTE 0.44 10/3/uL (0.21-1.20); NEUTROPHILS 85.5 %; NEUTROPHILS ABSOLUTE 6.69 10/3/uL (2.02-8.40); PLATELET COUNT 92 10/3/uL (150-400); RBC DISTRIBUTION WIDTH 16.6 % (12.0-16.0); RED CELL COUNT 2.78 10/6/uL (4.7-6.1); WHITE BLOOD CELLS 7.8 10/3/uL (4.5-10.5)
[2016-10-28 03:03] LABS: MANUAL DIFF NO %
[2016-10-28 03:09] LABS: CALCIUM, SERUM 8.5 MG/DL (8.5-10.4); CHLORIDE, SERUM 104 MMOL/L (96-112); CO2 (CARBON DIOXIDE) 19 MMOL/L (24-34); CREATININE 4.44 MG/DL (0.70-1.30); GFR AFRICAN AMERICAN 16 ML/MIN (>=60); GFR NON AFRICAN AMERICAN 13 ML/MIN (>=60); GLUCOSE, SERUM 138 MG/DL (60-99); POTASSIUM, SERUM 5.1 MMOL/L (3.5-5.3); SODIUM, SERUM 140 MMOL/L (135-148)
[2016-10-28 03:10] LABS: BUN (BLOOD UREA NITROGEN) 63 MG/DL (6-23); INTERNATIONAL NORMAL RATI 1.8 UNITS (-); PHOSPHORUS, SERUM 4.1 MG/DL (2.5-4.5); PROTIME (NOT ORD) 20.3 SEC (12.0-14.5)
[2016-10-28 03:15] LABS: ALLENS TEST Pos; BE (BASE EXCESS) -4.8 MEQ/L (0 +/- 2.5); CARBOXYHEMOGLOBIN 0.2 % (0-3); HCO3 (ACTUAL BICARBONATE) 18.8 MEQ/L (23-27); HEMOBLOGIN CONTENT 8.8 G/DL (14-18); INSTRUMENT SERIAL # 35151; METHEMOGLOBIN 0.7 % (0-3); MODE CMV; OPERATOR ID 17370; PCO2 (CO2 TENSION) 29 MMHG (35-45); PO2 (O2 TENSION) 96 MMHG (79-93); SAMPLE Arterial; TIDAL VOLUME 500 ML; pH 7.43 (7.37-7.43)
[2016-10-28 10:24] LABS: BASOPHILS 0 %; EOSINOPHILS 0 %; HEMOGLOBIN 7.9 g/dL (13.6-17.8); IMMATURE GRANULOCYTES 0.2 %; IMMATURE GRANULOCYTES ABSOLUTE 0.02 10/3/uL (0.0-0.11); LYMPHOCYTES 8.5 %; LYMPHOCYTES ABSOLUTE 0.79 10/3/uL (0.67-4.30); MEAN CORPUS HGB CONC 34.3 g/dL (32.0-36.0); MEAN CORPUSCULAR HEMOGLOB 28.5 pg (26.0-34.0); MEAN PLATELET VOLUME 9.7 fL (9.2-13.0); MONOCYTES 9.1 %; MONOCYTES ABSOLUTE 0.85 10/3/uL (0.21-1.20); NEUTROPHILS 82.2 %; NEUTROPHILS ABSOLUTE 7.65 10/3/uL (2.02-8.40); PLATELET COUNT 102 10/3/uL (150-400); RBC DISTRIBUTION WIDTH 16.7 % (12.0-16.0); RED CELL COUNT 2.77 10/6/uL (4.7-6.1); WHITE BLOOD CELLS 9.3 10/3/uL (4.5-10.5)
[2016-10-28 10:26] LABS: MANUAL DIFF NO %
[2016-10-28 10:36] LABS: BUN (BLOOD UREA NITROGEN) 56 MG/DL (6-23); CALCIUM, SERUM 8.8 MG/DL (8.5-10.4); CHLORIDE, SERUM 104 MMOL/L (96-112); CO2 (CARBON DIOXIDE) 19 MMOL/L (24-34); CREATININE 3.82 MG/DL (0.70-1.30); GFR AFRICAN AMERICAN 19 ML/MIN (>=60); GFR NON AFRICAN AMERICAN 16 ML/MIN (>=60); GLUCOSE, SERUM 143 MG/DL (60-99); POTASSIUM, SERUM 4.9 MMOL/L (3.5-5.3); SODIUM, SERUM 139 MMOL/L (135-148)
[2016-10-28 15:50] LABS: BASOPHILS 0 %; EOSINOPHILS 0 %; HEMATOCRIT 23.5 % (40.0-51.0); HEMOGLOBIN 7.8 g/dL (13.6-17.8); IMMATURE GRANULOCYTES 0.3 %; IMMATURE GRANULOCYTES ABSOLUTE 0.03 10/3/uL (0.0-0.11); LYMPHOCYTES 7.7 %; LYMPHOCYTES ABSOLUTE 0.73 10/3/uL (0.67-4.30); MANUAL DIFF NO %; MEAN CORPUS HGB CONC 33.2 g/dL (32.0-36.0); MEAN CORPUSCULAR HEMOGLOB 27.9 pg (26.0-34.0); MEAN CORPUSCULAR VOLUME 83.9 fL (80-100); MEAN PLATELET VOLUME 9.5 fL (9.2-13.0); MONOCYTES 9.3 %; MONOCYTES ABSOLUTE 0.88 10/3/uL (0.21-1.20); NEUTROPHILS 82.7 %; NEUTROPHILS ABSOLUTE 7.84 10/3/uL (2.02-8.40); NUCLEATED RED BLOOD CELLS 1.3 /100WBC (0-0); PLATELET COUNT 106 10/3/uL (150-400); RBC DISTRIBUTION WIDTH 16.7 % (12.0-16.0); WHITE BLOOD CELLS 9.5 10/3/uL (4.5-10.5)
[2016-10-28 15:56] LABS: CALCIUM, SERUM 8.7 MG/DL (8.5-10.4); CHLORIDE, SERUM 104 MMOL/L (96-112); CO2 (CARBON DIOXIDE) 20 MMOL/L (24-34); CREATININE 3.34 MG/DL (0.70-1.30); GFR AFRICAN AMERICAN 22 ML/MIN (>=60); GFR NON AFRICAN AMERICAN 19 ML/MIN (>=60); GLUCOSE, SERUM 164 MG/DL (60-99); PHOSPHORUS, SERUM 3.7 MG/DL (2.5-4.5); POTASSIUM, SERUM 4.7 MMOL/L (3.5-5.3); SODIUM, SERUM 138 MMOL/L (135-148)
[2016-10-28 16:00] LABS: BUN (BLOOD UREA NITROGEN) 44 MG/DL (6-23)
[2016-10-28 21:40] LABS: BASOPHILS 0.1 %; BASOPHILS ABSOLUTE 0.01 10/3/uL (0.0-0.16); EOSINOPHILS 0 %; HEMATOCRIT 23.9 % (40.0-51.0); HEMOGLOBIN 7.8 g/dL (13.6-17.8); IMMATURE GRANULOCYTES 0.2 %; IMMATURE GRANULOCYTES ABSOLUTE 0.02 10/3/uL (0.0-0.11); LYMPHOCYTES 11.3 %; LYMPHOCYTES ABSOLUTE 1.01 10/3/uL (0.67-4.30); MANUAL DIFF NO %; MEAN CORPUS HGB CONC 32.6 g/dL (32.0-36.0); MEAN CORPUSCULAR HEMOGLOB 27.7 pg (26.0-34.0); MEAN CORPUSCULAR VOLUME 84.8 fL (80-100); MONOCYTES 10.1 %; NEUTROPHILS 78.3 %; NEUTROPHILS ABSOLUTE 7.01 10/3/uL (2.02-8.40); NUCLEATED RED BLOOD CELLS 1.6 /100WBC (0-0); PLATELET COUNT 111 10/3/uL (150-400); RBC DISTRIBUTION WIDTH 16.9 % (12.0-16.0); RED CELL COUNT 2.82 10/6/uL (4.7-6.1)
[2016-10-28 22:01] LABS: BUN (BLOOD UREA NITROGEN) 38 MG/DL (6-23); CALCIUM, SERUM 8.9 MG/DL (8.5-10.4); CHLORIDE, SERUM 102 MMOL/L (96-112); CO2 (CARBON DIOXIDE) 21 MMOL/L (24-34); CREATININE 3.02 MG/DL (0.70-1.30); GFR AFRICAN AMERICAN 25 ML/MIN (>=60); GFR NON AFRICAN AMERICAN 21 ML/MIN (>=60); GLUCOSE, SERUM 153 MG/DL (60-99); POTASSIUM, SERUM 4.6 MMOL/L (3.5-5.3); SODIUM, SERUM 138 MMOL/L (135-148)
[2016-10-29 03:47] LABS: ALBUMIN 2.9 G/DL (3.5-5.0); BASOPHILS 0.1 %; BASOPHILS ABSOLUTE 0.01 10/3/uL (0.0-0.16); BUN (BLOOD UREA NITROGEN) 37 MG/DL (6-23); CALCIUM, SERUM 8.8 MG/DL (8.5-10.4); CHLORIDE, SERUM 101 MMOL/L (96-112); CO2 (CARBON DIOXIDE) 23 MMOL/L (24-34); CREATININE 2.85 MG/DL (0.70-1.30); EOSINOPHILS 0 %; GFR AFRICAN AMERICAN 27 ML/MIN (>=60); GFR NON AFRICAN AMERICAN 23 ML/MIN (>=60); GLUCOSE, SERUM 147 MG/DL (60-99); HEMATOCRIT 23.2 % (40.0-51.0); HEMOGLOBIN 7.6 g/dL (13.6-17.8); IMMATURE GRANULOCYTES 0.2 %; IMMATURE GRANULOCYTES ABSOLUTE 0.02 10/3/uL (0.0-0.11); LYMPHOCYTES 10.3 %; LYMPHOCYTES ABSOLUTE 0.87 10/3/uL (0.67-4.30); MEAN CORPUS HGB CONC 32.8 g/dL (32.0-36.0); MEAN CORPUSCULAR HEMOGLOB 27.5 pg (26.0-34.0); MEAN CORPUSCULAR VOLUME 84.1 fL (80-100); MEAN PLATELET VOLUME 10.1 fL (9.2-13.0); MONOCYTES 12.7 %; MONOCYTES ABSOLUTE 1.07 10/3/uL (0.21-1.20); NEUTROPHILS 76.7 %; NEUTROPHILS ABSOLUTE 6.47 10/3/uL (2.02-8.40); PLATELET COUNT 114 10/3/uL (150-400); POTASSIUM, SERUM 4.4 MMOL/L (3.5-5.3); RBC DISTRIBUTION WIDTH 16.9 % (12.0-16.0); RED CELL COUNT 2.76 10/6/uL (4.7-6.1); SODIUM, SERUM 139 MMOL/L (135-148); WHITE BLOOD CELLS 8.4 10/3/uL (4.5-10.5)
[2016-10-29 03:48] LABS: MANUAL DIFF NO %
[2016-10-29 05:33] LABS: ALLENS TEST Pos; BE (BASE EXCESS) -2.5 MEQ/L (0 +/- 2.5); CARBOXYHEMOGLOBIN 0.8 % (0-3); HCO3 (ACTUAL BICARBONATE) 20.8 MEQ/L (23-27); HEMOBLOGIN CONTENT 8.6 G/DL (14-18); INSTRUMENT SERIAL # 8083; METHEMOGLOBIN 0.4 % (0-3); MODE CMV; O2 CONTENT 11.6 VOL% (18-24); OPERATOR ID 16469; PCO2 (CO2 TENSION) 30 MMHG (35-45); PO2 (O2 TENSION) 83 MMHG (79-93); SAMPLE Arterial; TIDAL VOLUME 500 ML; pH 7.46 (7.37-7.43)
[2016-10-29 06:21] LABS: PROCALCITONIN 0.95 ng/mL (<0.5)
[2016-10-29 09:36] LABS: ALLENS TEST Pos; CARBOXYHEMOGLOBIN 0.2 % (0-3); HEMOBLOGIN CONTENT 9.1 G/DL (14-18); INSTRUMENT SERIAL # 35151; METHEMOGLOBIN 0.6 % (0-3); O2 CONTENT 12.7 VOL% (18-24); PO2 (O2 TENSION) 116 MMHG (79-93); SAMPLE Arterial
[2016-10-29 09:37] LABS: ALLENS TEST Pos; BE (BASE EXCESS) -2.9 MEQ/L (0 +/- 2.5); CARBOXYHEMOGLOBIN 0.7 % (0-3); HCO3 (ACTUAL BICARBONATE) 23.2 MEQ/L (23-27); HEMOBLOGIN CONTENT 8.8 G/DL (14-18); INSTRUMENT SERIAL # 35151; METHEMOGLOBIN 0.5 % (0-3); O2 CONTENT 12.1 VOL% (18-24); OPERATOR ID 31061; PCO2 (CO2 TENSION) 46 MMHG (35-45); PO2 (O2 TENSION) 103 MMHG (79-93); SAMPLE Arterial; pH 7.32 (7.37-7.43)
[2016-10-29 10:50] LABS: BASOPHILS 0 %; EOSINOPHILS 0 %; HEMATOCRIT 21.9 % (40.0-51.0); HEMOGLOBIN 7.3 g/dL (13.6-17.8); IMMATURE GRANULOCYTES 0.3 %; IMMATURE GRANULOCYTES ABSOLUTE 0.03 10/3/uL (0.0-0.11); LYMPHOCYTES 8.6 %; LYMPHOCYTES ABSOLUTE 0.74 10/3/uL (0.67-4.30); MEAN CORPUS HGB CONC 33.3 g/dL (32.0-36.0); MEAN CORPUSCULAR HEMOGLOB 28.3 pg (26.0-34.0); MEAN CORPUSCULAR VOLUME 84.9 fL (80-100); MEAN PLATELET VOLUME 9.9 fL (9.2-13.0); MONOCYTES 14.1 %; MONOCYTES ABSOLUTE 1.21 10/3/uL (0.21-1.20); NEUTROPHILS ABSOLUTE 6.61 10/3/uL (2.02-8.40); NUCLEATED RED BLOOD CELLS 1.6 /100WBC (0-0); PLATELET COUNT 112 10/3/uL (150-400); RBC DISTRIBUTION WIDTH 16.8 % (12.0-16.0); RED CELL COUNT 2.58 10/6/uL (4.7-6.1); WHITE BLOOD CELLS 8.6 10/3/uL (4.5-10.5)
[2016-10-29 10:51] LABS: MANUAL DIFF NO %
[2016-10-29 11:16] LABS: CHLORIDE, SERUM 102 MMOL/L (96-112); CO2 (CARBON DIOXIDE) 21 MMOL/L (24-34); CREATININE 2.72 MG/DL (0.70-1.30); GFR AFRICAN AMERICAN 28 ML/MIN (>=60); GFR NON AFRICAN AMERICAN 24 ML/MIN (>=60); GLUCOSE, SERUM 145 MG/DL (60-99); PHOSPHORUS, SERUM 2.7 MG/DL (2.5-4.5); POTASSIUM, SERUM 4.1 MMOL/L (3.5-5.3); SODIUM, SERUM 140 MMOL/L (135-148)
[2016-10-29 11:17] LABS: BUN (BLOOD UREA NITROGEN) 31 MG/DL (6-23)
[2016-10-29 15:51] LABS: BASOPHILS 0 %; EOSINOPHILS 0 %; HEMATOCRIT 21.7 % (40.0-51.0); HEMOGLOBIN 7.4 g/dL (13.6-17.8); IMMATURE GRANULOCYTES 0.1 %; IMMATURE GRANULOCYTES ABSOLUTE 0.01 10/3/uL (0.0-0.11); LYMPHOCYTES 8.6 %; LYMPHOCYTES ABSOLUTE 0.76 10/3/uL (0.67-4.30); MEAN CORPUS HGB CONC 34.1 g/dL (32.0-36.0); MEAN CORPUSCULAR HEMOGLOB 28.6 pg (26.0-34.0); MEAN CORPUSCULAR VOLUME 83.8 fL (80-100); MEAN PLATELET VOLUME 9.8 fL (9.2-13.0); MONOCYTES 13.1 %; MONOCYTES ABSOLUTE 1.15 10/3/uL (0.21-1.20); NEUTROPHILS 78.2 %; NEUTROPHILS ABSOLUTE 6.89 10/3/uL (2.02-8.40); PLATELET COUNT 109 10/3/uL (150-400); RBC DISTRIBUTION WIDTH 16.8 % (12.0-16.0); RED CELL COUNT 2.59 10/6/uL (4.7-6.1); WHITE BLOOD CELLS 8.8 10/3/uL (4.5-10.5)
[2016-10-29 15:53] LABS: MANUAL DIFF NO %
[2016-10-29 16:04] LABS: CALCIUM, SERUM 8.9 MG/DL (8.5-10.4); CHLORIDE, SERUM 101 MMOL/L (96-112); CO2 (CARBON DIOXIDE) 25 MMOL/L (24-34); CREATININE 2.45 MG/DL (0.70-1.30); GFR AFRICAN AMERICAN 32 ML/MIN (>=60); GFR NON AFRICAN AMERICAN 28 ML/MIN (>=60); GLUCOSE, SERUM 147 MG/DL (60-99); PHOSPHORUS, SERUM 2.2 MG/DL (2.5-4.5); POTASSIUM, SERUM 3.8 MMOL/L (3.5-5.3); SODIUM, SERUM 138 MMOL/L (135-148)
[2016-10-29 16:08] LABS: BUN (BLOOD UREA NITROGEN) 27 MG/DL (6-23)
[2016-10-29 21:40] LABS: BASOPHILS 0 %; EOSINOPHILS 0 %; HEMATOCRIT 21.4 % (40.0-51.0); HEMOGLOBIN 7.2 g/dL (13.6-17.8); IMMATURE GRANULOCYTES 0.2 %; IMMATURE GRANULOCYTES ABSOLUTE 0.02 10/3/uL (0.0-0.11); LYMPHOCYTES 8.1 %; LYMPHOCYTES ABSOLUTE 0.74 10/3/uL (0.67-4.30); MEAN CORPUS HGB CONC 33.6 g/dL (32.0-36.0); MEAN CORPUSCULAR HEMOGLOB 28.5 pg (26.0-34.0); MEAN CORPUSCULAR VOLUME 84.6 fL (80-100); MONOCYTES ABSOLUTE 1.01 10/3/uL (0.21-1.20); NEUTROPHILS 80.7 %; NEUTROPHILS ABSOLUTE 7.38 10/3/uL (2.02-8.40); NUCLEATED RED BLOOD CELLS 1.1 /100WBC (0-0); PLATELET COUNT 109 10/3/uL (150-400); RBC DISTRIBUTION WIDTH 16.7 % (12.0-16.0); RED CELL COUNT 2.53 10/6/uL (4.7-6.1); WHITE BLOOD CELLS 9.2 10/3/uL (4.5-10.5)
[2016-10-29 21:43] LABS: MANUAL DIFF NO %
[2016-10-29 21:51] LABS: CALCIUM, SERUM 8.3 MG/DL (8.5-10.4); CHLORIDE, SERUM 100 MMOL/L (96-112); CO2 (CARBON DIOXIDE) 24 MMOL/L (24-34); CREATININE 2.15 MG/DL (0.70-1.30); GFR AFRICAN AMERICAN 37 ML/MIN (>=60); GFR NON AFRICAN AMERICAN 32 ML/MIN (>=60); GLUCOSE, SERUM 162 MG/DL (60-99); POTASSIUM, SERUM 3.7 MMOL/L (3.5-5.3); SODIUM, SERUM 138 MMOL/L (135-148)
[2016-10-29 21:52] LABS: BUN (BLOOD UREA NITROGEN) 23 MG/DL (6-23)
[2016-10-30 04:33] LABS: BASOPHILS 0 %; EOSINOPHILS 0 %; HEMOGLOBIN 7.1 g/dL (13.6-17.8); IMMATURE GRANULOCYTES 0.1 %; IMMATURE GRANULOCYTES ABSOLUTE 0.01 10/3/uL (0.0-0.11); LYMPHOCYTES 9.1 %; LYMPHOCYTES ABSOLUTE 0.85 10/3/uL (0.67-4.30); MEAN CORPUSCULAR HEMOGLOB 28.6 pg (26.0-34.0); MEAN CORPUSCULAR VOLUME 84.3 fL (80-100); MEAN PLATELET VOLUME 9.9 fL (9.2-13.0); MONOCYTES 14.9 %; NEUTROPHILS 75.9 %; NEUTROPHILS ABSOLUTE 7.12 10/3/uL (2.02-8.40); NUCLEATED RED BLOOD CELLS 1.1 /100WBC (0-0); PLATELET COUNT 112 10/3/uL (150-400); RBC DISTRIBUTION WIDTH 16.8 % (12.0-16.0); RED CELL COUNT 2.48 10/6/uL (4.7-6.1); WHITE BLOOD CELLS 9.4 10/3/uL (4.5-10.5)
[2016-10-30 04:34] LABS: HEMATOCRIT 20.9 % (40.0-51.0)
[2016-10-30 04:35] LABS: MANUAL DIFF NO %
[2016-10-30 04:36] LABS: ALBUMIN 2.5 G/DL (3.5-5.0); BUN (BLOOD UREA NITROGEN) 20 MG/DL (6-23); CALCIUM, SERUM 8.6 MG/DL (8.5-10.4); CHLORIDE, SERUM 100 MMOL/L (96-112); CO2 (CARBON DIOXIDE) 23 MMOL/L (24-34); CREATININE 1.95 MG/DL (0.70-1.30); GFR AFRICAN AMERICAN 42 ML/MIN (>=60); GFR NON AFRICAN AMERICAN 36 ML/MIN (>=60); GLUCOSE, SERUM 134 MG/DL (60-99); POTASSIUM, SERUM 3.8 MMOL/L (3.5-5.3); SGOT(AST) 15 U/L (5-40); SGPT(ALT) 10 U/L (5-65); SODIUM, SERUM 140 MMOL/L (135-148); TOTAL BILIRUBIN 3.3 MG/DL (0-1.2); TOTAL PROTEIN 6.3 G/DL (6.0-8.5)
[2016-10-30 04:40] LABS: ALKALINE PHOSPHATASE 73 U/L (45-117); DIRECT BILIRUBIN 2.2 MG/DL (0.0-0.4); INDIRECT BILIRUBIN(NOT ORDER) 1.1 MG/DL (0.1-0.9); PHOSPHORUS, SERUM 1.9 MG/DL (2.5-4.5)
[2016-10-30 05:23] LABS: ALLENS TEST Pos; BE (BASE EXCESS) 0.5 MEQ/L (0 +/- 2.5); HCO3 (ACTUAL BICARBONATE) 22.8 MEQ/L (23-27); HEMOBLOGIN CONTENT 8.2 G/DL (14-18); INSTRUMENT SERIAL # 35151; METHEMOGLOBIN 0.7 % (0-3); MODE CMV; O2 CONTENT 11.4 VOL% (18-24); OPERATOR ID 23712; PCO2 (CO2 TENSION) 28 MMHG (35-45); PO2 (O2 TENSION) 102 MMHG (79-93); SAMPLE Arterial; TIDAL VOLUME 500 ML; pH 7.53 (7.37-7.43)
[2016-10-30 06:05] LABS: PROCALCITONIN 0.57 ng/mL (<0.5)
[2016-10-30 09:55] LABS: BASOPHILS 0 %; EOSINOPHILS 0 %; IMMATURE GRANULOCYTES 0.2 %; IMMATURE GRANULOCYTES ABSOLUTE 0.02 10/3/uL (0.0-0.11); LYMPHOCYTES 6.9 %; LYMPHOCYTES ABSOLUTE 0.65 10/3/uL (0.67-4.30); MEAN CORPUS HGB CONC 33.8 g/dL (32.0-36.0); MEAN CORPUSCULAR HEMOGLOB 28.3 pg (26.0-34.0); MEAN CORPUSCULAR VOLUME 83.8 fL (80-100); MONOCYTES 14.6 %; MONOCYTES ABSOLUTE 1.37 10/3/uL (0.21-1.20); NEUTROPHILS 78.3 %; NEUTROPHILS ABSOLUTE 7.37 10/3/uL (2.02-8.40); NUCLEATED RED BLOOD CELLS 0.9 /100WBC (0-0); PLATELET COUNT 102 10/3/uL (150-400); RBC DISTRIBUTION WIDTH 16.7 % (12.0-16.0); RED CELL COUNT 2.47 10/6/uL (4.7-6.1); WHITE BLOOD CELLS 9.4 10/3/uL (4.5-10.5)
[2016-10-30 09:56] LABS: BUN (BLOOD UREA NITROGEN) 18 MG/DL (6-23); CALCIUM, SERUM 8.2 MG/DL (8.5-10.4); CHLORIDE, SERUM 100 MMOL/L (96-112); CO2 (CARBON DIOXIDE) 24 MMOL/L (24-34); CREATININE 1.79 MG/DL (0.70-1.30); GFR AFRICAN AMERICAN 47 ML/MIN (>=60); GFR NON AFRICAN AMERICAN 40 ML/MIN (>=60); GLUCOSE, SERUM 129 MG/DL (60-99); HEMATOCRIT 20.7 % (40.0-51.0); MANUAL DIFF NO %; POTASSIUM, SERUM 3.7 MMOL/L (3.5-5.3); SODIUM, SERUM 139 MMOL/L (135-148)
[2016-10-30 09:59] LABS: PHOSPHORUS, SERUM 3.1 MG/DL (2.5-4.5)
[2016-10-30 12:48] LABS: INTERNATIONAL NORMAL RATI 2.4 UNITS (-)
[2016-10-30 12:49] LABS: PROTIME (NOT ORD) 25.9 SEC (12.0-14.5)
[2016-10-30 15:49] LABS: BASOPHILS 0 %; EOSINOPHILS 0 %; HEMATOCRIT 21.1 % (40.0-51.0); HEMOGLOBIN 7.1 g/dL (13.6-17.8); IMMATURE GRANULOCYTES 0.2 %; IMMATURE GRANULOCYTES ABSOLUTE 0.02 10/3/uL (0.0-0.11); LYMPHOCYTES 5.7 %; LYMPHOCYTES ABSOLUTE 0.55 10/3/uL (0.67-4.30); MEAN CORPUS HGB CONC 33.6 g/dL (32.0-36.0); MEAN CORPUSCULAR HEMOGLOB 28.4 pg (26.0-34.0); MEAN CORPUSCULAR VOLUME 84.4 fL (80-100); MEAN PLATELET VOLUME 9.3 fL (9.2-13.0); MONOCYTES 13.2 %; MONOCYTES ABSOLUTE 1.26 10/3/uL (0.21-1.20); NEUTROPHILS 80.9 %; NEUTROPHILS ABSOLUTE 7.74 10/3/uL (2.02-8.40); NUCLEATED RED BLOOD CELLS 0.9 /100WBC (0-0); PLATELET COUNT 104 10/3/uL (150-400); WHITE BLOOD CELLS 9.6 10/3/uL (4.5-10.5)
[2016-10-30 15:50] LABS: MANUAL DIFF NO %
[2016-10-30 16:06] LABS: BUN (BLOOD UREA NITROGEN) 14 MG/DL (6-23); CALCIUM, SERUM 10.9 MG/DL (8.5-10.4); CHLORIDE, SERUM 100 MMOL/L (96-112); CO2 (CARBON DIOXIDE) 23 MMOL/L (24-34); CREATININE 1.67 MG/DL (0.70-1.30); GFR AFRICAN AMERICAN 51 ML/MIN (>=60); GFR NON AFRICAN AMERICAN 44 ML/MIN (>=60); GLUCOSE, SERUM 139 MG/DL (60-99); PHOSPHORUS, SERUM 2.3 MG/DL (2.5-4.5); POTASSIUM, SERUM 3.7 MMOL/L (3.5-5.3); SODIUM, SERUM 138 MMOL/L (135-148)
[2016-10-30 22:03] LABS: BASOPHILS 0 %; EOSINOPHILS 0 %; HEMATOCRIT 22.9 % (40.0-51.0); HEMOGLOBIN 7.7 g/dL (13.6-17.8); IMMATURE GRANULOCYTES 0.4 %; IMMATURE GRANULOCYTES ABSOLUTE 0.04 10/3/uL (0.0-0.11); LYMPHOCYTES 7.2 %; LYMPHOCYTES ABSOLUTE 0.68 10/3/uL (0.67-4.30); MANUAL DIFF NO %; MEAN CORPUS HGB CONC 33.6 g/dL (32.0-36.0); MEAN CORPUSCULAR HEMOGLOB 28.4 pg (26.0-34.0); MEAN CORPUSCULAR VOLUME 84.5 fL (80-100); MEAN PLATELET VOLUME 9.1 fL (9.2-13.0); MONOCYTES 16.8 %; MONOCYTES ABSOLUTE 1.58 10/3/uL (0.21-1.20); NEUTROPHILS 75.6 %; NEUTROPHILS ABSOLUTE 7.13 10/3/uL (2.02-8.40); PLATELET COUNT 96 10/3/uL (150-400); RBC DISTRIBUTION WIDTH 16.8 % (12.0-16.0); RED CELL COUNT 2.71 10/6/uL (4.7-6.1); WHITE BLOOD CELLS 9.4 10/3/uL (4.5-10.5)
[2016-10-30 22:17] LABS: BUN (BLOOD UREA NITROGEN) 15 MG/DL (6-23); CHLORIDE, SERUM 102 MMOL/L (96-112); CO2 (CARBON DIOXIDE) 22 MMOL/L (24-34); GFR AFRICAN AMERICAN 50 ML/MIN (>=60); GFR NON AFRICAN AMERICAN 43 ML/MIN (>=60); GLUCOSE, SERUM 129 MG/DL (60-99); PHOSPHORUS, SERUM 2.9 MG/DL (2.5-4.5); POTASSIUM, SERUM 3.8 MMOL/L (3.5-5.3); SODIUM, SERUM 140 MMOL/L (135-148)
[2016-10-30 22:18] LABS: CALCIUM, SERUM 9.1 MG/DL (8.5-10.4)
[2016-10-31 03:42] LABS: ALLENS TEST Pos; BE (BASE EXCESS) -3.4 MEQ/L (0 +/- 2.5); CARBOXYHEMOGLOBIN 0.2 % (0-3); HCO3 (ACTUAL BICARBONATE) 18.7 MEQ/L (23-27); HEMOBLOGIN CONTENT 8.3 G/DL (14-18); INSTRUMENT SERIAL # 35151; METHEMOGLOBIN 0.6 % (0-3); MODE CMV; O2 CONTENT 11.6 VOL% (18-24); OPERATOR ID 23712; PCO2 (CO2 TENSION) 24 MMHG (35-45); PO2 (O2 TENSION) 114 MMHG (79-93); SAMPLE Arterial; TIDAL VOLUME 500 ML; pH 7.51 (7.37-7.43)
[2016-10-31 03:43] LABS: BASOPHILS 0 %; EOSINOPHILS 0.1 %; EOSINOPHILS ABSOLUTE 0.01 10/3/uL (0.0-0.53); HEMATOCRIT 22.1 % (40.0-51.0); HEMOGLOBIN 7.6 g/dL (13.6-17.8); IMMATURE GRANULOCYTES 0.3 %; IMMATURE GRANULOCYTES ABSOLUTE 0.03 10/3/uL (0.0-0.11); LYMPHOCYTES 13.2 %; LYMPHOCYTES ABSOLUTE 1.22 10/3/uL (0.67-4.30); MANUAL DIFF NO %; MEAN CORPUS HGB CONC 34.4 g/dL (32.0-36.0); MEAN CORPUSCULAR VOLUME 84.4 fL (80-100); MONOCYTES 8.8 %; MONOCYTES ABSOLUTE 0.81 10/3/uL (0.21-1.20); NEUTROPHILS 77.6 %; NEUTROPHILS ABSOLUTE 7.18 10/3/uL (2.02-8.40); PLATELET COUNT 100 10/3/uL (150-400); RED CELL COUNT 2.62 10/6/uL (4.7-6.1); WHITE BLOOD CELLS 9.3 10/3/uL (4.5-10.5)
[2016-10-31 04:01] LABS: A/G RATIO 0.8 (0.7-1.9); ALBUMIN 2.7 G/DL (3.5-5.0); ALKALINE PHOSPHATASE 69 U/L (45-117); BUN (BLOOD UREA NITROGEN) 12 MG/DL (6-23); CHLORIDE, SERUM 103 MMOL/L (96-112); CO2 (CARBON DIOXIDE) 22 MMOL/L (24-34); CREATININE 1.63 MG/DL (0.70-1.30); GFR AFRICAN AMERICAN 52 ML/MIN (>=60); GFR NON AFRICAN AMERICAN 45 ML/MIN (>=60); GLUCOSE, SERUM 121 MG/DL (60-99); PHOSPHORUS, SERUM 3.3 MG/DL (2.5-4.5); POTASSIUM, SERUM 3.8 MMOL/L (3.5-5.3); SGOT(AST) 16 U/L (5-40); SGPT(ALT) 13 U/L (5-65); SODIUM, SERUM 141 MMOL/L (135-148); TOTAL BILIRUBIN 3.7 MG/DL (0-1.2); TOTAL PROTEIN 6.2 G/DL (6.0-8.5)
[2016-10-31 04:02] LABS: CALCIUM, SERUM 10.1 MG/DL (8.5-10.4); GLOBULIN 3.5 G/DL (2.5-4.1)
[2016-10-31 12:29] LABS: BASOPHILS 0 %; EOSINOPHILS 0.1 %; EOSINOPHILS ABSOLUTE 0.01 10/3/uL (0.0-0.53); HEMATOCRIT 22.6 % (40.0-51.0); HEMOGLOBIN 7.5 g/dL (13.6-17.8); IMMATURE GRANULOCYTES 0.4 %; IMMATURE GRANULOCYTES ABSOLUTE 0.04 10/3/uL (0.0-0.11); LYMPHOCYTES 11.1 %; LYMPHOCYTES ABSOLUTE 1.05 10/3/uL (0.67-4.30); MANUAL DIFF NO %; MEAN CORPUS HGB CONC 33.2 g/dL (32.0-36.0); MEAN CORPUSCULAR HEMOGLOB 28.5 pg (26.0-34.0); MEAN CORPUSCULAR VOLUME 85.9 fL (80-100); MEAN PLATELET VOLUME 9.4 fL (9.2-13.0); MONOCYTES 8.3 %; MONOCYTES ABSOLUTE 0.78 10/3/uL (0.21-1.20); NEUTROPHILS 80.1 %; NEUTROPHILS ABSOLUTE 7.55 10/3/uL (2.02-8.40); PLATELET COUNT 95 10/3/uL (150-400); RBC DISTRIBUTION WIDTH 17.4 % (12.0-16.0); RED CELL COUNT 2.63 10/6/uL (4.7-6.1); WHITE BLOOD CELLS 9.4 10/3/uL (4.5-10.5)
[2016-10-31 12:37] LABS: BUN (BLOOD UREA NITROGEN) 13 MG/DL (6-23); CALCIUM, SERUM 9.7 MG/DL (8.5-10.4); CHLORIDE, SERUM 104 MMOL/L (96-112); CO2 (CARBON DIOXIDE) 23 MMOL/L (24-34); CREATININE 1.54 MG/DL (0.70-1.30); GFR AFRICAN AMERICAN 56 ML/MIN (>=60); GFR NON AFRICAN AMERICAN 48 ML/MIN (>=60); GLUCOSE, SERUM 130 MG/DL (60-99); PHOSPHORUS, SERUM 2.5 MG/DL (2.5-4.5); POTASSIUM, SERUM 3.9 MMOL/L (3.5-5.3); SODIUM, SERUM 139 MMOL/L (135-148)
[2016-10-31 17:22] LABS: BASOPHILS 0 %; EOSINOPHILS 0.1 %; EOSINOPHILS ABSOLUTE 0.01 10/3/uL (0.0-0.53); HEMOGLOBIN 7.7 g/dL (13.6-17.8); IMMATURE GRANULOCYTES 0.2 %; IMMATURE GRANULOCYTES ABSOLUTE 0.02 10/3/uL (0.0-0.11); LYMPHOCYTES 6.5 %; LYMPHOCYTES ABSOLUTE 0.61 10/3/uL (0.67-4.30); MEAN CORPUS HGB CONC 33.5 g/dL (32.0-36.0); MEAN CORPUSCULAR HEMOGLOB 28.8 pg (26.0-34.0); MEAN CORPUSCULAR VOLUME 86.1 fL (80-100); MEAN PLATELET VOLUME 9.4 fL (9.2-13.0); MONOCYTES 10.9 %; MONOCYTES ABSOLUTE 1.03 10/3/uL (0.21-1.20); NEUTROPHILS 82.3 %; NEUTROPHILS ABSOLUTE 7.74 10/3/uL (2.02-8.40); PLATELET COUNT 96 10/3/uL (150-400); RBC DISTRIBUTION WIDTH 17.3 % (12.0-16.0); RED CELL COUNT 2.67 10/6/uL (4.7-6.1); WHITE BLOOD CELLS 9.4 10/3/uL (4.5-10.5)
[2016-10-31 17:23] LABS: MANUAL DIFF NO %
[2016-10-31 17:42] LABS: BUN (BLOOD UREA NITROGEN) 12 MG/DL (6-23); CHLORIDE, SERUM 105 MMOL/L (96-112); CO2 (CARBON DIOXIDE) 22 MMOL/L (24-34); GFR AFRICAN AMERICAN 58 ML/MIN (>=60); GFR NON AFRICAN AMERICAN 50 ML/MIN (>=60); GLUCOSE, SERUM 134 MG/DL (60-99); POTASSIUM, SERUM 4.1 MMOL/L (3.5-5.3); SODIUM, SERUM 139 MMOL/L (135-148)
[2016-10-31 21:41] LABS: BASOPHILS 0 %; EOSINOPHILS 0 %; HEMATOCRIT 23.6 % (40.0-51.0); HEMOGLOBIN 7.8 g/dL (13.6-17.8); IMMATURE GRANULOCYTES 0.5 %; IMMATURE GRANULOCYTES ABSOLUTE 0.05 10/3/uL (0.0-0.11); LYMPHOCYTES 7.5 %; LYMPHOCYTES ABSOLUTE 0.76 10/3/uL (0.67-4.30); MEAN CORPUS HGB CONC 33.1 g/dL (32.0-36.0); MEAN CORPUSCULAR HEMOGLOB 28.7 pg (26.0-34.0); MEAN CORPUSCULAR VOLUME 86.8 fL (80-100); MEAN PLATELET VOLUME 9.5 fL (9.2-13.0); MONOCYTES 10.6 %; MONOCYTES ABSOLUTE 1.07 10/3/uL (0.21-1.20); NEUTROPHILS 81.4 %; PLATELET COUNT 95 10/3/uL (150-400); RBC DISTRIBUTION WIDTH 17.3 % (12.0-16.0); RED CELL COUNT 2.72 10/6/uL (4.7-6.1); WHITE BLOOD CELLS 10.1 10/3/uL (4.5-10.5)
[2016-10-31 21:43] LABS: MANUAL DIFF NO %
[2016-10-31 21:54] LABS: BUN (BLOOD UREA NITROGEN) 12 MG/DL (6-23); CALCIUM, SERUM 9.3 MG/DL (8.5-10.4); CHLORIDE, SERUM 105 MMOL/L (96-112); CO2 (CARBON DIOXIDE) 23 MMOL/L (24-34); CREATININE 1.45 MG/DL (0.70-1.30); GFR AFRICAN AMERICAN 60 ML/MIN (>=60); GFR NON AFRICAN AMERICAN 52 ML/MIN (>=60); GLUCOSE, SERUM 160 MG/DL (60-99); PHOSPHORUS, SERUM 2.2 MG/DL (2.5-4.5); POTASSIUM, SERUM 4.1 MMOL/L (3.5-5.3); SODIUM, SERUM 139 MMOL/L (135-148)
[2016-11-01 03:33] LABS: BE (BASE EXCESS) -5.2 MEQ/L (0 +/- 2.5); CARBOXYHEMOGLOBIN 0.1 % (0-3); HCO3 (ACTUAL BICARBONATE) 19.7 MEQ/L (23-27); HEMOBLOGIN CONTENT 8.5 G/DL (14-18); INSTRUMENT SERIAL # 35151; METHEMOGLOBIN 0.5 % (0-3); O2 CONTENT 11.7 VOL% (18-24); OPERATOR ID 23712; PCO2 (CO2 TENSION) 36 MMHG (35-45); PO2 (O2 TENSION) 104 MMHG (79-93); SAMPLE Arterial; pH 7.36 (7.37-7.43)
[2016-11-01 03:34] LABS: BASOPHILS 0 %; EOSINOPHILS 0 %; HEMATOCRIT 23.1 % (40.0-51.0); HEMOGLOBIN 7.8 g/dL (13.6-17.8); IMMATURE GRANULOCYTES 0.4 %; IMMATURE GRANULOCYTES ABSOLUTE 0.04 10/3/uL (0.0-0.11); LYMPHOCYTES 9.3 %; LYMPHOCYTES ABSOLUTE 0.88 10/3/uL (0.67-4.30); MEAN CORPUS HGB CONC 33.8 g/dL (32.0-36.0); MEAN CORPUSCULAR HEMOGLOB 29.3 pg (26.0-34.0); MEAN CORPUSCULAR VOLUME 86.8 fL (80-100); MEAN PLATELET VOLUME 9.4 fL (9.2-13.0); MONOCYTES ABSOLUTE 0.76 10/3/uL (0.21-1.20); NEUTROPHILS 82.3 %; NEUTROPHILS ABSOLUTE 7.78 10/3/uL (2.02-8.40); PLATELET COUNT 98 10/3/uL (150-400); RBC DISTRIBUTION WIDTH 17.1 % (12.0-16.0); RED CELL COUNT 2.66 10/6/uL (4.7-6.1); WHITE BLOOD CELLS 9.5 10/3/uL (4.5-10.5)
[2016-11-01 03:34] LABS: ALLENS TEST Pos; MODE CMV; TIDAL VOLUME 500 ML
[2016-11-01 03:41] LABS: MANUAL DIFF NO %
[2016-11-01 03:55] LABS: BUN (BLOOD UREA NITROGEN) 12 MG/DL (6-23); CALCIUM, SERUM 9.1 MG/DL (8.5-10.4); CHLORIDE, SERUM 106 MMOL/L (96-112); CO2 (CARBON DIOXIDE) 21 MMOL/L (24-34); CREATININE 1.38 MG/DL (0.70-1.30); GFR AFRICAN AMERICAN 64 ML/MIN (>=60); GFR NON AFRICAN AMERICAN 55 ML/MIN (>=60); GLUCOSE, SERUM 155 MG/DL (60-99); PHOSPHORUS, SERUM 2.8 MG/DL (2.5-4.5); SODIUM, SERUM 140 MMOL/L (135-148)
[2016-11-01 04:49] LABS: PROCALCITONIN 0.25 ng/mL (<0.5)
[2016-11-01 09:19] LABS: BASOPHILS 0 %; EOSINOPHILS 0.1 %; EOSINOPHILS ABSOLUTE 0.01 10/3/uL (0.0-0.53); HEMOGLOBIN 7.2 g/dL (13.6-17.8); IMMATURE GRANULOCYTES 0.2 %; IMMATURE GRANULOCYTES ABSOLUTE 0.02 10/3/uL (0.0-0.11); LYMPHOCYTES 4.9 %; LYMPHOCYTES ABSOLUTE 0.47 10/3/uL (0.67-4.30); MEAN CORPUSCULAR VOLUME 86.1 fL (80-100); MEAN PLATELET VOLUME 9.6 fL (9.2-13.0); MONOCYTES 16.3 %; MONOCYTES ABSOLUTE 1.56 10/3/uL (0.21-1.20); NEUTROPHILS 78.5 %; NEUTROPHILS ABSOLUTE 7.53 10/3/uL (2.02-8.40); PLATELET COUNT 102 10/3/uL (150-400); RBC DISTRIBUTION WIDTH 17.5 % (12.0-16.0); RED CELL COUNT 2.67 10/6/uL (4.7-6.1); WHITE BLOOD CELLS 9.6 10/3/uL (4.5-10.5)
[2016-11-01 09:21] LABS: MANUAL DIFF NO %; MEAN CORPUS HGB CONC 31.3 g/dL (32.0-36.0)
[2016-11-01 09:28] LABS: BUN (BLOOD UREA NITROGEN) 13 MG/DL (6-23); CHLORIDE, SERUM 106 MMOL/L (96-112); CO2 (CARBON DIOXIDE) 22 MMOL/L (24-34); CREATININE 1.35 MG/DL (0.70-1.30); GFR AFRICAN AMERICAN 66 ML/MIN (>=60); GFR NON AFRICAN AMERICAN 57 ML/MIN (>=60); GLUCOSE, SERUM 143 MG/DL (60-99); POTASSIUM, SERUM 3.9 MMOL/L (3.5-5.3); SODIUM, SERUM 139 MMOL/L (135-148)
[2016-11-01 15:49] LABS: BASOPHILS 0 %; EOSINOPHILS 0.1 %; EOSINOPHILS ABSOLUTE 0.01 10/3/uL (0.0-0.53); HEMATOCRIT 22.7 % (40.0-51.0); HEMOGLOBIN 7.3 g/dL (13.6-17.8); IMMATURE GRANULOCYTES 0.4 %; IMMATURE GRANULOCYTES ABSOLUTE 0.04 10/3/uL (0.0-0.11); LYMPHOCYTES 8.6 %; LYMPHOCYTES ABSOLUTE 0.95 10/3/uL (0.67-4.30); MEAN CORPUS HGB CONC 32.2 g/dL (32.0-36.0); MEAN CORPUSCULAR HEMOGLOB 27.8 pg (26.0-34.0); MEAN CORPUSCULAR VOLUME 86.3 fL (80-100); MEAN PLATELET VOLUME 9.8 fL (9.2-13.0); MONOCYTES 9.2 %; MONOCYTES ABSOLUTE 1.01 10/3/uL (0.21-1.20); NEUTROPHILS 81.7 %; NEUTROPHILS ABSOLUTE 9.01 10/3/uL (2.02-8.40); PLATELET COUNT 107 10/3/uL (150-400); RBC DISTRIBUTION WIDTH 17.3 % (12.0-16.0); RED CELL COUNT 2.63 10/6/uL (4.7-6.1)
[2016-11-01 15:56] LABS: MANUAL DIFF NO %
[2016-11-01 16:07] LABS: BUN (BLOOD UREA NITROGEN) 13 MG/DL (6-23); CALCIUM, SERUM 8.9 MG/DL (8.5-10.4); CHLORIDE, SERUM 106 MMOL/L (96-112); CO2 (CARBON DIOXIDE) 23 MMOL/L (24-34); CREATININE 1.31 MG/DL (0.70-1.30); GFR AFRICAN AMERICAN 68 ML/MIN (>=60); GFR NON AFRICAN AMERICAN 59 ML/MIN (>=60); GLUCOSE, SERUM 155 MG/DL (60-99); POTASSIUM, SERUM 4.1 MMOL/L (3.5-5.3); SODIUM, SERUM 140 MMOL/L (135-148)
[2016-11-01 20:30] LABS: BASOPHILS 0 %; EOSINOPHILS 0.1 %; EOSINOPHILS ABSOLUTE 0.01 10/3/uL (0.0-0.53); HEMATOCRIT 21.8 % (40.0-51.0); IMMATURE GRANULOCYTES 0.3 %; IMMATURE GRANULOCYTES ABSOLUTE 0.03 10/3/uL (0.0-0.11); LYMPHOCYTES 10.3 %; LYMPHOCYTES ABSOLUTE 0.98 10/3/uL (0.67-4.30); MEAN CORPUS HGB CONC 32.1 g/dL (32.0-36.0); MEAN CORPUSCULAR HEMOGLOB 27.6 pg (26.0-34.0); MEAN CORPUSCULAR VOLUME 85.8 fL (80-100); MEAN PLATELET VOLUME 9.3 fL (9.2-13.0); MONOCYTES 7.7 %; MONOCYTES ABSOLUTE 0.73 10/3/uL (0.21-1.20); NEUTROPHILS 81.6 %; NEUTROPHILS ABSOLUTE 7.78 10/3/uL (2.02-8.40); PLATELET COUNT 93 10/3/uL (150-400); RBC DISTRIBUTION WIDTH 17.3 % (12.0-16.0); RED CELL COUNT 2.54 10/6/uL (4.7-6.1); WHITE BLOOD CELLS 9.5 10/3/uL (4.5-10.5)
[2016-11-01 20:34] LABS: MANUAL DIFF NO %
[2016-11-01 20:41] LABS: BUN (BLOOD UREA NITROGEN) 12 MG/DL (6-23); CALCIUM, SERUM 8.9 MG/DL (8.5-10.4); CHLORIDE, SERUM 107 MMOL/L (96-112); CO2 (CARBON DIOXIDE) 22 MMOL/L (24-34); CREATININE 1.31 MG/DL (0.70-1.30); GFR AFRICAN AMERICAN 68 ML/MIN (>=60); GFR NON AFRICAN AMERICAN 59 ML/MIN (>=60); GLUCOSE, SERUM 150 MG/DL (60-99); POTASSIUM, SERUM 3.9 MMOL/L (3.5-5.3); SODIUM, SERUM 141 MMOL/L (135-148)
[2016-11-02 02:20] LABS: BASOPHILS 0.1 %; BASOPHILS ABSOLUTE 0.01 10/3/uL (0.0-0.16); EOSINOPHILS 0.2 %; EOSINOPHILS ABSOLUTE 0.02 10/3/uL (0.0-0.53); HEMATOCRIT 23.8 % (40.0-51.0); HEMOGLOBIN 7.5 g/dL (13.6-17.8); IMMATURE GRANULOCYTES 0.4 %; IMMATURE GRANULOCYTES ABSOLUTE 0.04 10/3/uL (0.0-0.11); LYMPHOCYTES ABSOLUTE 1.23 10/3/uL (0.67-4.30); MANUAL DIFF NO %; MEAN CORPUS HGB CONC 31.5 g/dL (32.0-36.0); MEAN CORPUSCULAR VOLUME 85.6 fL (80-100); MEAN PLATELET VOLUME 9.4 fL (9.2-13.0); MONOCYTES 8.2 %; MONOCYTES ABSOLUTE 0.92 10/3/uL (0.21-1.20); NEUTROPHILS 80.1 %; NEUTROPHILS ABSOLUTE 8.95 10/3/uL (2.02-8.40); PLATELET COUNT 105 10/3/uL (150-400); RBC DISTRIBUTION WIDTH 17.3 % (12.0-16.0); RED CELL COUNT 2.78 10/6/uL (4.7-6.1); WHITE BLOOD CELLS 11.2 10/3/uL (4.5-10.5)
[2016-11-02 02:37] LABS: BUN (BLOOD UREA NITROGEN) 12 MG/DL (6-23); CALCIUM, SERUM 8.9 MG/DL (8.5-10.4); CHLORIDE, SERUM 106 MMOL/L (96-112); CO2 (CARBON DIOXIDE) 21 MMOL/L (24-34); CREATININE 1.31 MG/DL (0.70-1.30); GFR AFRICAN AMERICAN 68 ML/MIN (>=60); GFR NON AFRICAN AMERICAN 59 ML/MIN (>=60); GLUCOSE, SERUM 153 MG/DL (60-99); PHOSPHORUS, SERUM 2.5 MG/DL (2.5-4.5); POTASSIUM, SERUM 4.1 MMOL/L (3.5-5.3); SODIUM, SERUM 141 MMOL/L (135-148)
[2016-11-02 04:02] LABS: BE (BASE EXCESS) -5.5 MEQ/L (0 +/- 2.5); CARBOXYHEMOGLOBIN 0.7 % (0-3); HCO3 (ACTUAL BICARBONATE) 19.6 MEQ/L (23-27); HEMOBLOGIN CONTENT 7.9 G/DL (14-18); INSTRUMENT SERIAL # 35151; METHEMOGLOBIN 0.6 % (0-3); MODE CMV; PCO2 (CO2 TENSION) 36 MMHG (35-45); PO2 (O2 TENSION) 109 MMHG (79-93); SAMPLE Arterial; TIDAL VOLUME 500 ML; pH 7.35 (7.37-7.43)
[2016-11-02 10:53] LABS: BASOPHILS 0.1 %; BASOPHILS ABSOLUTE 0.01 10/3/uL (0.0-0.16); EOSINOPHILS 0.1 %; EOSINOPHILS ABSOLUTE 0.01 10/3/uL (0.0-0.53); HEMATOCRIT 25.8 % (40.0-51.0); IMMATURE GRANULOCYTES 0.5 %; IMMATURE GRANULOCYTES ABSOLUTE 0.07 10/3/uL (0.0-0.11); LYMPHOCYTES 7.3 %; LYMPHOCYTES ABSOLUTE 1.04 10/3/uL (0.67-4.30); MEAN CORPUSCULAR VOLUME 87.2 fL (80-100); MEAN PLATELET VOLUME 9.7 fL (9.2-13.0); MONOCYTES 7.7 %; NEUTROPHILS 84.3 %; NEUTROPHILS ABSOLUTE 12.07 10/3/uL (2.02-8.40); NUCLEATED RED BLOOD CELLS 0.4 /100WBC (0-0); PLATELET COUNT 132 10/3/uL (150-400); RBC DISTRIBUTION WIDTH 17.6 % (12.0-16.0); RED CELL COUNT 2.96 10/6/uL (4.7-6.1); WHITE BLOOD CELLS 14.3 10/3/uL (4.5-10.5)
[2016-11-02 10:54] LABS: MANUAL DIFF NO %
[2016-11-02 11:02] LABS: BUN (BLOOD UREA NITROGEN) 15 MG/DL (6-23); CALCIUM, SERUM 9.1 MG/DL (8.5-10.4); CHLORIDE, SERUM 106 MMOL/L (96-112); CO2 (CARBON DIOXIDE) 24 MMOL/L (24-34); CREATININE 1.35 MG/DL (0.70-1.30); GFR AFRICAN AMERICAN 66 ML/MIN (>=60); GFR NON AFRICAN AMERICAN 57 ML/MIN (>=60); GLUCOSE, SERUM 182 MG/DL (60-99); POTASSIUM, SERUM 4.3 MMOL/L (3.5-5.3); SODIUM, SERUM 139 MMOL/L (135-148)
[2016-11-02 17:55] LABS: BASOPHILS 0.1 %; BASOPHILS ABSOLUTE 0.01 10/3/uL (0.0-0.16); EOSINOPHILS 0 %; HEMOGLOBIN 7.3 g/dL (13.6-17.8); IMMATURE GRANULOCYTES 0.4 %; IMMATURE GRANULOCYTES ABSOLUTE 0.04 10/3/uL (0.0-0.11); LYMPHOCYTES 11.5 %; LYMPHOCYTES ABSOLUTE 1.12 10/3/uL (0.67-4.30); MEAN CORPUS HGB CONC 32.4 g/dL (32.0-36.0); MEAN CORPUSCULAR VOLUME 86.2 fL (80-100); MEAN PLATELET VOLUME 9.7 fL (9.2-13.0); MONOCYTES ABSOLUTE 0.58 10/3/uL (0.21-1.20); NEUTROPHILS ABSOLUTE 7.98 10/3/uL (2.02-8.40); PLATELET COUNT 104 10/3/uL (150-400); RBC DISTRIBUTION WIDTH 17.3 % (12.0-16.0); RED CELL COUNT 2.61 10/6/uL (4.7-6.1); WHITE BLOOD CELLS 9.7 10/3/uL (4.5-10.5)
[2016-11-02 17:56] LABS: HEMATOCRIT 22.5 % (40.0-51.0); MANUAL DIFF NO %
[2016-11-02 18:01] LABS: BUN (BLOOD UREA NITROGEN) 15 MG/DL (6-23); CHLORIDE, SERUM 107 MMOL/L (96-112); CO2 (CARBON DIOXIDE) 22 MMOL/L (24-34); CREATININE 1.18 MG/DL (0.70-1.30); GFR AFRICAN AMERICAN 77 ML/MIN (>=60); GFR NON AFRICAN AMERICAN 67 ML/MIN (>=60); GLUCOSE, SERUM 146 MG/DL (60-99); PHOSPHORUS, SERUM 2.3 MG/DL (2.5-4.5); POTASSIUM, SERUM 3.9 MMOL/L (3.5-5.3); SODIUM, SERUM 141 MMOL/L (135-148)
[2016-11-02 22:33] LABS: HEMATOCRIT 23.2 % (40.0-51.0); HEMOGLOBIN 7.4 g/dL (13.6-17.8); MEAN CORPUS HGB CONC 31.9 g/dL (32.0-36.0); MEAN CORPUSCULAR HEMOGLOB 27.6 pg (26.0-34.0); MEAN CORPUSCULAR VOLUME 86.6 fL (80-100); MEAN PLATELET VOLUME 9.8 fL (9.2-13.0); PLATELET COUNT 121 10/3/uL (150-400); RBC DISTRIBUTION WIDTH 17.4 % (12.0-16.0); RED CELL COUNT 2.68 10/6/uL (4.7-6.1); WHITE BLOOD CELLS 12.3 10/3/uL (4.5-10.5)
[2016-11-02 22:35] LABS: MANUAL DIFF YES %
[2016-11-02 22:46] LABS: BUN (BLOOD UREA NITROGEN) 14 MG/DL (6-23); CALCIUM, SERUM 9.1 MG/DL (8.5-10.4); CHLORIDE, SERUM 106 MMOL/L (96-112); CO2 (CARBON DIOXIDE) 23 MMOL/L (24-34); CREATININE 1.23 MG/DL (0.70-1.30); GFR AFRICAN AMERICAN 73 ML/MIN (>=60); GFR NON AFRICAN AMERICAN 63 ML/MIN (>=60); GLUCOSE, SERUM 149 MG/DL (60-99); POTASSIUM, SERUM 3.9 MMOL/L (3.5-5.3); SODIUM, SERUM 140 MMOL/L (135-148)
[2016-11-02 23:28] LABS: ANISOCYTOSIS 1+ (5-10/OIF) (0-5/OIF); LYMPHOCYTES 9 %; LYMPHOCYTES ABSOLUTE (CALC) 1.11 10/3/uL (0.67-4.30); MONOCYTES 6 %; MONOCYTES ABSOLUTE (CALC) 0.74 10/3/uL (0.21-1.20); NEUTROPHILS ABSOLUTE (CALC) 10.46 10/3/uL (2.02-8.40); PLATELET ESTIMATE SLT DEC (ADEQUATE); SEGMENTED NEUTROPHIL (0) 85 %; TOTAL NUCLEATED CELLS 100
[2016-11-03 03:30] LABS: ALLENS TEST Pos; BE (BASE EXCESS) -3.8 MEQ/L (0 +/- 2.5); CARBOXYHEMOGLOBIN 0.5 % (0-3); HCO3 (ACTUAL BICARBONATE) 21.9 MEQ/L (23-27); INSTRUMENT SERIAL # 35151; METHEMOGLOBIN 0.6 % (0-3); MODE CMV; OPERATOR ID 17370; PCO2 (CO2 TENSION) 43 MMHG (35-45); PO2 (O2 TENSION) 104 MMHG (79-93); SAMPLE Arterial; TIDAL VOLUME 500 ML; pH 7.33 (7.37-7.43)
[2016-11-03 04:13] LABS: BASOPHILS 0 %; EOSINOPHILS 0.1 %; EOSINOPHILS ABSOLUTE 0.01 10/3/uL (0.0-0.53); HEMATOCRIT 22.2 % (40.0-51.0); HEMOGLOBIN 7.2 g/dL (13.6-17.8); IMMATURE GRANULOCYTES 0.6 %; IMMATURE GRANULOCYTES ABSOLUTE 0.06 10/3/uL (0.0-0.11); LYMPHOCYTES ABSOLUTE 0.82 10/3/uL (0.67-4.30); MANUAL DIFF NO %; MEAN CORPUS HGB CONC 32.4 g/dL (32.0-36.0); MEAN CORPUSCULAR HEMOGLOB 28.5 pg (26.0-34.0); MEAN CORPUSCULAR VOLUME 87.7 fL (80-100); MEAN PLATELET VOLUME 9.8 fL (9.2-13.0); MONOCYTES 10.4 %; MONOCYTES ABSOLUTE 1.07 10/3/uL (0.21-1.20); NEUTROPHILS 80.9 %; NEUTROPHILS ABSOLUTE 8.28 10/3/uL (2.02-8.40); PLATELET COUNT 108 10/3/uL (150-400); RBC DISTRIBUTION WIDTH 17.3 % (12.0-16.0); RED CELL COUNT 2.53 10/6/uL (4.7-6.1); WHITE BLOOD CELLS 10.2 10/3/uL (4.5-10.5)
[2016-11-03 04:29] LABS: ALBUMIN 3.3 G/DL (3.5-5.0); BUN (BLOOD UREA NITROGEN) 15 MG/DL (6-23); CALCIUM, SERUM 8.8 MG/DL (8.5-10.4); CHLORIDE, SERUM 108 MMOL/L (96-112); CO2 (CARBON DIOXIDE) 21 MMOL/L (24-34); GFR AFRICAN AMERICAN 76 ML/MIN (>=60); GFR NON AFRICAN AMERICAN 65 ML/MIN (>=60); GLUCOSE, SERUM 168 MG/DL (60-99); PHOSPHORUS, SERUM 2.2 MG/DL (2.5-4.5); SODIUM, SERUM 141 MMOL/L (135-148)
[2016-11-03 05:28] LABS: PROCALCITONIN 0.18 ng/mL (<0.5)
[2016-11-03 11:06] LABS: BASOPHILS 0 %; EOSINOPHILS 0 %; HEMATOCRIT 23.5 % (40.0-51.0); HEMOGLOBIN 7.5 g/dL (13.6-17.8); IMMATURE GRANULOCYTES 0.5 %; IMMATURE GRANULOCYTES ABSOLUTE 0.06 10/3/uL (0.0-0.11); LYMPHOCYTES 8.4 %; LYMPHOCYTES ABSOLUTE 0.96 10/3/uL (0.67-4.30); MEAN CORPUS HGB CONC 31.9 g/dL (32.0-36.0); MEAN CORPUSCULAR HEMOGLOB 27.8 pg (26.0-34.0); MEAN PLATELET VOLUME 10.3 fL (9.2-13.0); MONOCYTES 8.2 %; MONOCYTES ABSOLUTE 0.94 10/3/uL (0.21-1.20); NEUTROPHILS 82.9 %; NEUTROPHILS ABSOLUTE 9.44 10/3/uL (2.02-8.40); PLATELET COUNT 125 10/3/uL (150-400); RBC DISTRIBUTION WIDTH 17.5 % (12.0-16.0); WHITE BLOOD CELLS 11.4 10/3/uL (4.5-10.5)
[2016-11-03 11:07] LABS: MANUAL DIFF NO %
[2016-11-03 11:17] LABS: BUN (BLOOD UREA NITROGEN) 16 MG/DL (6-23); CHLORIDE, SERUM 106 MMOL/L (96-112); CO2 (CARBON DIOXIDE) 22 MMOL/L (24-34); CREATININE 1.19 MG/DL (0.70-1.30); GFR AFRICAN AMERICAN 76 ML/MIN (>=60); GFR NON AFRICAN AMERICAN 66 ML/MIN (>=60); GLUCOSE, SERUM 181 MG/DL (60-99); POTASSIUM, SERUM 3.9 MMOL/L (3.5-5.3); SODIUM, SERUM 141 MMOL/L (135-148)
[2016-11-03 17:44] LABS: BASOPHILS 0.1 %; BASOPHILS ABSOLUTE 0.01 10/3/uL (0.0-0.16); EOSINOPHILS 0 %; HEMATOCRIT 22.1 % (40.0-51.0); IMMATURE GRANULOCYTES 0.6 %; IMMATURE GRANULOCYTES ABSOLUTE 0.07 10/3/uL (0.0-0.11); LYMPHOCYTES ABSOLUTE 1.01 10/3/uL (0.67-4.30); MEAN CORPUS HGB CONC 31.2 g/dL (32.0-36.0); MEAN CORPUSCULAR HEMOGLOB 27.4 pg (26.0-34.0); MEAN CORPUSCULAR VOLUME 87.7 fL (80-100); MEAN PLATELET VOLUME 9.7 fL (9.2-13.0); MONOCYTES 9.2 %; MONOCYTES ABSOLUTE 1.04 10/3/uL (0.21-1.20); NEUTROPHILS 81.1 %; NEUTROPHILS ABSOLUTE 9.14 10/3/uL (2.02-8.40); PLATELET COUNT 127 10/3/uL (150-400); RBC DISTRIBUTION WIDTH 17.3 % (12.0-16.0); RED CELL COUNT 2.52 10/6/uL (4.7-6.1); WHITE BLOOD CELLS 11.3 10/3/uL (4.5-10.5)
[2016-11-03 17:45] LABS: HEMOGLOBIN 6.9 g/dL (13.6-17.8)
[2016-11-03 17:55] LABS: BUN (BLOOD UREA NITROGEN) 15 MG/DL (6-23); CALCIUM, SERUM 8.2 MG/DL (8.5-10.4); CHLORIDE, SERUM 107 MMOL/L (96-112); CO2 (CARBON DIOXIDE) 21 MMOL/L (24-34); CREATININE 1.09 MG/DL (0.70-1.30); GFR AFRICAN AMERICAN 85 ML/MIN (>=60); GFR NON AFRICAN AMERICAN 73 ML/MIN (>=60); GLUCOSE, SERUM 167 MG/DL (60-99); SODIUM, SERUM 140 MMOL/L (135-148)
[2016-11-03 18:13] LABS: MANUAL DIFF NO %
[2016-11-03 23:11] LABS: BASOPHILS 0 %; EOSINOPHILS 0.1 %; EOSINOPHILS ABSOLUTE 0.01 10/3/uL (0.0-0.53); IMMATURE GRANULOCYTES 0.5 %; IMMATURE GRANULOCYTES ABSOLUTE 0.05 10/3/uL (0.0-0.11); LYMPHOCYTES 10.9 %; LYMPHOCYTES ABSOLUTE 1.16 10/3/uL (0.67-4.30); MEAN CORPUS HGB CONC 30.9 g/dL (32.0-36.0); MEAN CORPUSCULAR HEMOGLOB 26.9 pg (26.0-34.0); MEAN PLATELET VOLUME 9.5 fL (9.2-13.0); MONOCYTES 4.1 %; MONOCYTES ABSOLUTE 0.43 10/3/uL (0.21-1.20); NEUTROPHILS 84.4 %; NEUTROPHILS ABSOLUTE 8.95 10/3/uL (2.02-8.40); PLATELET COUNT 122 10/3/uL (150-400); RBC DISTRIBUTION WIDTH 17.4 % (12.0-16.0); RED CELL COUNT 2.53 10/6/uL (4.7-6.1); WHITE BLOOD CELLS 10.6 10/3/uL (4.5-10.5)
[2016-11-03 23:12] LABS: HEMOGLOBIN 6.8 g/dL (13.6-17.8); MANUAL DIFF NO %
[2016-11-03 23:23] LABS: BUN (BLOOD UREA NITROGEN) 16 MG/DL (6-23); CALCIUM, SERUM 8.9 MG/DL (8.5-10.4); CHLORIDE, SERUM 106 MMOL/L (96-112); CO2 (CARBON DIOXIDE) 22 MMOL/L (24-34); CREATININE 1.15 MG/DL (0.70-1.30); GFR AFRICAN AMERICAN 80 ML/MIN (>=60); GFR NON AFRICAN AMERICAN 69 ML/MIN (>=60); GLUCOSE, SERUM 173 MG/DL (60-99); POTASSIUM, SERUM 3.9 MMOL/L (3.5-5.3); SODIUM, SERUM 141 MMOL/L (135-148)
[2016-11-04 05:21] LABS: HEMATOCRIT 21.4 % (40.0-51.0); MEAN CORPUS HGB CONC 31.8 g/dL (32.0-36.0); MEAN CORPUSCULAR HEMOGLOB 27.5 pg (26.0-34.0); MEAN CORPUSCULAR VOLUME 86.6 fL (80-100); MEAN PLATELET VOLUME 10.1 fL (9.2-13.0); PLATELET COUNT 134 10/3/uL (150-400); RBC DISTRIBUTION WIDTH 17.5 % (12.0-16.0); RED CELL COUNT 2.47 10/6/uL (4.7-6.1); WHITE BLOOD CELLS 12.1 10/3/uL (4.5-10.5)
[2016-11-04 05:24] LABS: HEMOGLOBIN 6.8 g/dL (13.6-17.8); MANUAL DIFF YES %
[2016-11-04 05:38] LABS: BUN (BLOOD UREA NITROGEN) 17 MG/DL (6-23); CALCIUM, SERUM 9.2 MG/DL (8.5-10.4); CHLORIDE, SERUM 109 MMOL/L (96-112); CO2 (CARBON DIOXIDE) 20 MMOL/L (24-34); CREATININE 1.24 MG/DL (0.70-1.30); GFR AFRICAN AMERICAN 73 ML/MIN (>=60); GFR NON AFRICAN AMERICAN 63 ML/MIN (>=60); GLUCOSE, SERUM 169 MG/DL (60-99); POTASSIUM, SERUM 4.1 MMOL/L (3.5-5.3); SODIUM, SERUM 142 MMOL/L (135-148)
[2016-11-04 05:39] LABS: PHOSPHORUS, SERUM 2.7 MG/DL (2.5-4.5)
[2016-11-04 06:05] LABS: LYMPHOCYTES 4 %; LYMPHOCYTES ABSOLUTE (CALC) 0.48 10/3/uL (0.67-4.30); MONOCYTES 13 %; MONOCYTES ABSOLUTE (CALC) 1.57 10/3/uL (0.21-1.20); NEUTROPHILS ABSOLUTE (CALC) 10.04 10/3/uL (2.02-8.40); SEGMENTED NEUTROPHIL (0) 83 %; TOTAL NUCLEATED CELLS 100
[2016-11-04 06:06] LABS: ANISOCYTOSIS 1+ (5-10/OIF) (0-5/OIF); PLATELET ESTIMATE SLT DEC (ADEQUATE)
[2016-11-04 06:07] LABS: BURR CELLS 1+ (3-10/OIF) (0-2/OIF); HYPOCHROMIA 1+ (3-10/OIF) (0-2/OIF); TEARDROP SHAPED RBCS OCC (0-2/OIF)
[2016-11-04 12:51] LABS: BASOPHILS 0 %; EOSINOPHILS 0.2 %; EOSINOPHILS ABSOLUTE 0.03 10/3/uL (0.0-0.53); IMMATURE GRANULOCYTES 0.5 %; IMMATURE GRANULOCYTES ABSOLUTE 0.08 10/3/uL (0.0-0.11); LYMPHOCYTES ABSOLUTE 1.19 10/3/uL (0.67-4.30); MEAN CORPUS HGB CONC 32.1 g/dL (32.0-36.0); MEAN CORPUSCULAR HEMOGLOB 28.2 pg (26.0-34.0); MEAN CORPUSCULAR VOLUME 87.9 fL (80-100); MEAN PLATELET VOLUME 10.1 fL (9.2-13.0); MONOCYTES 11.7 %; MONOCYTES ABSOLUTE 1.73 10/3/uL (0.21-1.20); NEUTROPHILS 79.6 %; PLATELET COUNT 150 10/3/uL (150-400); RBC DISTRIBUTION WIDTH 17.2 % (12.0-16.0); WHITE BLOOD CELLS 14.8 10/3/uL (4.5-10.5)
[2016-11-04 12:52] LABS: HEMATOCRIT 26.8 % (40.0-51.0); HEMOGLOBIN 8.6 g/dL (13.6-17.8); MANUAL DIFF NO %; RED CELL COUNT 3.05 10/6/uL (4.7-6.1)
[2016-11-04 13:03] LABS: BUN (BLOOD UREA NITROGEN) 20 MG/DL (6-23); CALCIUM, SERUM 9.1 MG/DL (8.5-10.4); CHLORIDE, SERUM 106 MMOL/L (96-112); CO2 (CARBON DIOXIDE) 21 MMOL/L (24-34); CREATININE 1.26 MG/DL (0.70-1.30); GFR AFRICAN AMERICAN 71 ML/MIN (>=60); GFR NON AFRICAN AMERICAN 62 ML/MIN (>=60); POTASSIUM, SERUM 4.1 MMOL/L (3.5-5.3); SODIUM, SERUM 139 MMOL/L (135-148)
[2016-11-04 13:05] LABS: GLUCOSE, SERUM 205 MG/DL (60-99)
[2016-11-04 17:44] LABS: HEMATOCRIT 24.9 % (40.0-51.0); MEAN CORPUS HGB CONC 32.1 g/dL (32.0-36.0); MEAN CORPUSCULAR HEMOGLOB 27.9 pg (26.0-34.0); MEAN CORPUSCULAR VOLUME 86.8 fL (80-100); MEAN PLATELET VOLUME 9.8 fL (9.2-13.0); PLATELET COUNT 148 10/3/uL (150-400); RBC DISTRIBUTION WIDTH 17.3 % (12.0-16.0); RED CELL COUNT 2.87 10/6/uL (4.7-6.1); WHITE BLOOD CELLS 14.7 10/3/uL (4.5-10.5)
[2016-11-04 17:49] LABS: MANUAL DIFF YES %
[2016-11-04 17:58] LABS: BUN (BLOOD UREA NITROGEN) 19 MG/DL (6-23); CALCIUM, SERUM 9.2 MG/DL (8.5-10.4); CHLORIDE, SERUM 108 MMOL/L (96-112); CO2 (CARBON DIOXIDE) 21 MMOL/L (24-34); GFR AFRICAN AMERICAN 69 ML/MIN (>=60); GFR NON AFRICAN AMERICAN 59 ML/MIN (>=60); PHOSPHORUS, SERUM 2.1 MG/DL (2.5-4.5); POTASSIUM, SERUM 4.1 MMOL/L (3.5-5.3); SODIUM, SERUM 140 MMOL/L (135-148)
[2016-11-04 17:59] LABS: GLUCOSE, SERUM 163 MG/DL (60-99)
[2016-11-04 19:09] LABS: LYMPHOCYTES 12 %; LYMPHOCYTES ABSOLUTE (CALC) 1.76 10/3/uL (0.67-4.30); MONOCYTES 14 %; MONOCYTES ABSOLUTE (CALC) 2.06 10/3/uL (0.21-1.20); NEUTROPHILS ABSOLUTE (CALC) 10.88 10/3/uL (2.02-8.40); PLATELET ESTIMATE ADQ (ADEQUATE); SEGMENTED NEUTROPHIL (0) 74 %; TOTAL NUCLEATED CELLS 100
[2016-11-04 19:10] LABS: ANISOCYTOSIS 1+ (5-10/OIF) (0-5/OIF); HYPOCHROMIA 1+ (3-10/OIF) (0-2/OIF); SCHISTOCYTES OCC (0-2/OIF)
[2016-11-04 23:32] LABS: HEMATOCRIT 22.7 % (40.0-51.0); HEMOGLOBIN 7.6 g/dL (13.6-17.8); MEAN CORPUS HGB CONC 33.5 g/dL (32.0-36.0); MEAN CORPUSCULAR HEMOGLOB 29.2 pg (26.0-34.0); MEAN CORPUSCULAR VOLUME 87.3 fL (80-100); MEAN PLATELET VOLUME 10.2 fL (9.2-13.0); PLATELET COUNT 145 10/3/uL (150-400); RBC DISTRIBUTION WIDTH 17.1 % (12.0-16.0); WHITE BLOOD CELLS 12.4 10/3/uL (4.5-10.5)
[2016-11-04 23:34] LABS: BUN (BLOOD UREA NITROGEN) 19 MG/DL (6-23); CALCIUM, SERUM 8.7 MG/DL (8.5-10.4); CHLORIDE, SERUM 108 MMOL/L (96-112); CO2 (CARBON DIOXIDE) 21 MMOL/L (24-34); GFR AFRICAN AMERICAN 69 ML/MIN (>=60); GFR NON AFRICAN AMERICAN 59 ML/MIN (>=60); GLUCOSE, SERUM 153 MG/DL (60-99); POTASSIUM, SERUM 3.9 MMOL/L (3.5-5.3); SODIUM, SERUM 141 MMOL/L (135-148)
[2016-11-04 23:35] LABS: MANUAL DIFF YES %
[2016-11-04 23:58] LABS: ANISOCYTOSIS 1+ (5-10/OIF) (0-5/OIF); BAND NEUTROPHILS 2 %; ELLIPTOCYTES 1+ (3-10/OIF) (0-2/OIF); LYMPHOCYTES 5 %; LYMPHOCYTES ABSOLUTE (CALC) 0.62 10/3/uL (0.67-4.30); MONOCYTES 13 %; MONOCYTES ABSOLUTE (CALC) 1.61 10/3/uL (0.21-1.20); NEUTROPHILS ABSOLUTE (CALC) 10.17 10/3/uL (2.02-8.40); PLATELET ESTIMATE SLT DEC (ADEQUATE); SEGMENTED NEUTROPHIL (0) 80 %; TOTAL NUCLEATED CELLS 100
[2016-11-05 04:11] LABS: CARBOXYHEMOGLOBIN 0.4 % (0-3); HCO3 (ACTUAL BICARBONATE) 19.6 MEQ/L (23-27); HEMOBLOGIN CONTENT 9.1 G/DL (14-18); INSTRUMENT SERIAL # 35151; METHEMOGLOBIN 0.5 % (0-3); O2 CONTENT 12.5 VOL% (18-24); PCO2 (CO2 TENSION) 39 MMHG (35-45); PO2 (O2 TENSION) 94 MMHG (79-93); pH 7.32 (7.37-7.43)
[2016-11-05 04:12] LABS: ALLENS TEST Pos; MODE CMV; OPERATOR ID 17370; SAMPLE Arterial; TIDAL VOLUME 500 ML
[2016-11-05 05:23] LABS: HEMATOCRIT 23.9 % (40.0-51.0); HEMOGLOBIN 7.7 g/dL (13.6-17.8); MEAN CORPUS HGB CONC 32.2 g/dL (32.0-36.0); MEAN CORPUSCULAR HEMOGLOB 28.2 pg (26.0-34.0); MEAN CORPUSCULAR VOLUME 87.5 fL (80-100); MEAN PLATELET VOLUME 9.9 fL (9.2-13.0); PLATELET COUNT 143 10/3/uL (150-400); RBC DISTRIBUTION WIDTH 17.4 % (12.0-16.0); RED CELL COUNT 2.73 10/6/uL (4.7-6.1); WHITE BLOOD CELLS 14.2 10/3/uL (4.5-10.5)
[2016-11-05 05:26] LABS: MANUAL DIFF YES %
[2016-11-05 06:06] LABS: BUN (BLOOD UREA NITROGEN) 19 MG/DL (6-23); CALCIUM, SERUM 8.9 MG/DL (8.5-10.4); CHLORIDE, SERUM 108 MMOL/L (96-112); CO2 (CARBON DIOXIDE) 21 MMOL/L (24-34); CREATININE 1.24 MG/DL (0.70-1.30); GFR AFRICAN AMERICAN 73 ML/MIN (>=60); GFR NON AFRICAN AMERICAN 63 ML/MIN (>=60); GLUCOSE, SERUM 177 MG/DL (60-99); SODIUM, SERUM 139 MMOL/L (135-148)
[2016-11-05 06:31] LABS: ANISOCYTOSIS 1+ (5-10/OIF) (0-5/OIF); LYMPHOCYTES 2 %; LYMPHOCYTES ABSOLUTE (CALC) 0.28 10/3/uL (0.67-4.30); MONOCYTES 11 %; MONOCYTES ABSOLUTE (CALC) 1.56 10/3/uL (0.21-1.20); NEUTROPHILS ABSOLUTE (CALC) 12.35 10/3/uL (2.02-8.40); PLATELET ESTIMATE SLT DEC (ADEQUATE); SEGMENTED NEUTROPHIL (0) 87 %; TOTAL NUCLEATED CELLS 100
[2016-11-05 12:03] LABS: HEMATOCRIT 23.2 % (40.0-51.0); HEMOGLOBIN 7.7 g/dL (13.6-17.8); MEAN CORPUS HGB CONC 33.2 g/dL (32.0-36.0); MEAN CORPUSCULAR HEMOGLOB 28.3 pg (26.0-34.0); MEAN CORPUSCULAR VOLUME 85.3 fL (80-100); MEAN PLATELET VOLUME 9.9 fL (9.2-13.0); PLATELET COUNT 130 10/3/uL (150-400); RBC DISTRIBUTION WIDTH 17.4 % (12.0-16.0); RED CELL COUNT 2.72 10/6/uL (4.7-6.1); WHITE BLOOD CELLS 14.8 10/3/uL (4.5-10.5)
[2016-11-05 12:04] LABS: MANUAL DIFF YES %
[2016-11-05 12:27] LABS: BUN (BLOOD UREA NITROGEN) 20 MG/DL (6-23); CALCIUM, SERUM 8.8 MG/DL (8.5-10.4); CHLORIDE, SERUM 108 MMOL/L (96-112); CO2 (CARBON DIOXIDE) 20 MMOL/L (24-34); CREATININE 1.23 MG/DL (0.70-1.30); GFR AFRICAN AMERICAN 73 ML/MIN (>=60); GFR NON AFRICAN AMERICAN 63 ML/MIN (>=60); GLUCOSE, SERUM 157 MG/DL (60-99); SODIUM, SERUM 141 MMOL/L (135-148)
[2016-11-05 13:16] LABS: ANISOCYTOSIS 1+ (5-10/OIF) (0-5/OIF); ATYPICAL LYMPH OCC (0-2%) (0-5%); LYMPHOCYTES 12 %; LYMPHOCYTES ABSOLUTE (CALC) 1.78 10/3/uL (0.67-4.30); MONOCYTES 9 %; MONOCYTES ABSOLUTE (CALC) 1.33 10/3/uL (0.21-1.20); NEUTROPHILS ABSOLUTE (CALC) 11.69 10/3/uL (2.02-8.40); PLATELET ESTIMATE SLT DEC (ADEQUATE); SEGMENTED NEUTROPHIL (0) 79 %; TOTAL NUCLEATED CELLS 100
[2016-11-05 18:05] LABS: BASOPHILS 0.1 %; BASOPHILS ABSOLUTE 0.01 10/3/uL (0.0-0.16); EOSINOPHILS 0.1 %; EOSINOPHILS ABSOLUTE 0.02 10/3/uL (0.0-0.53); HEMATOCRIT 23.5 % (40.0-51.0); HEMOGLOBIN 7.5 g/dL (13.6-17.8); IMMATURE GRANULOCYTES 0.3 %; IMMATURE GRANULOCYTES ABSOLUTE 0.04 10/3/uL (0.0-0.11); LYMPHOCYTES 9.6 %; LYMPHOCYTES ABSOLUTE 1.46 10/3/uL (0.67-4.30); MEAN CORPUS HGB CONC 31.9 g/dL (32.0-36.0); MEAN CORPUSCULAR HEMOGLOB 27.3 pg (26.0-34.0); MEAN CORPUSCULAR VOLUME 85.5 fL (80-100); MEAN PLATELET VOLUME 10.2 fL (9.2-13.0); MONOCYTES 5.2 %; MONOCYTES ABSOLUTE 0.79 10/3/uL (0.21-1.20); NEUTROPHILS 84.7 %; NEUTROPHILS ABSOLUTE 12.84 10/3/uL (2.02-8.40); PLATELET COUNT 145 10/3/uL (150-400); RBC DISTRIBUTION WIDTH 17.4 % (12.0-16.0); RED CELL COUNT 2.75 10/6/uL (4.7-6.1); WHITE BLOOD CELLS 15.2 10/3/uL (4.5-10.5)
[2016-11-05 18:06] LABS: MANUAL DIFF NO %
[2016-11-05 18:09] LABS: BUN (BLOOD UREA NITROGEN) 21 MG/DL (6-23); CALCIUM, SERUM 8.8 MG/DL (8.5-10.4); CHLORIDE, SERUM 107 MMOL/L (96-112); CO2 (CARBON DIOXIDE) 19 MMOL/L (24-34); CREATININE 1.24 MG/DL (0.70-1.30); GFR AFRICAN AMERICAN 73 ML/MIN (>=60); GFR NON AFRICAN AMERICAN 63 ML/MIN (>=60); PHOSPHORUS, SERUM 2.5 MG/DL (2.5-4.5); POTASSIUM, SERUM 3.9 MMOL/L (3.5-5.3); SODIUM, SERUM 140 MMOL/L (135-148)
[2016-11-05 18:13] LABS: GLUCOSE, SERUM 192 MG/DL (60-99)
[2016-11-05 23:29] LABS: BASOPHILS 0.1 %; BASOPHILS ABSOLUTE 0.01 10/3/uL (0.0-0.16); EOSINOPHILS 0.1 %; EOSINOPHILS ABSOLUTE 0.01 10/3/uL (0.0-0.53); HEMATOCRIT 24.8 % (40.0-51.0); HEMOGLOBIN 8.2 g/dL (13.6-17.8); IMMATURE GRANULOCYTES 0.6 %; IMMATURE GRANULOCYTES ABSOLUTE 0.11 10/3/uL (0.0-0.11); LYMPHOCYTES 7.1 %; LYMPHOCYTES ABSOLUTE 1.32 10/3/uL (0.67-4.30); MEAN CORPUS HGB CONC 33.1 g/dL (32.0-36.0); MEAN CORPUSCULAR HEMOGLOB 28.7 pg (26.0-34.0); MEAN CORPUSCULAR VOLUME 86.7 fL (80-100); MEAN PLATELET VOLUME 9.8 fL (9.2-13.0); MONOCYTES 5.3 %; MONOCYTES ABSOLUTE 0.98 10/3/uL (0.21-1.20); NEUTROPHILS 86.8 %; NEUTROPHILS ABSOLUTE 16.22 10/3/uL (2.02-8.40); PLATELET COUNT 175 10/3/uL (150-400); RBC DISTRIBUTION WIDTH 17.2 % (12.0-16.0); RED CELL COUNT 2.86 10/6/uL (4.7-6.1); WHITE BLOOD CELLS 18.7 10/3/uL (4.5-10.5)
[2016-11-05 23:40] LABS: BUN (BLOOD UREA NITROGEN) 21 MG/DL (6-23); CALCIUM, SERUM 8.4 MG/DL (8.5-10.4); CHLORIDE, SERUM 106 MMOL/L (96-112); CO2 (CARBON DIOXIDE) 22 MMOL/L (24-34); CREATININE 1.13 MG/DL (0.70-1.30); GFR AFRICAN AMERICAN 81 ML/MIN (>=60); GFR NON AFRICAN AMERICAN 70 ML/MIN (>=60); GLUCOSE, SERUM 185 MG/DL (60-99); POTASSIUM, SERUM 4.1 MMOL/L (3.5-5.3); SODIUM, SERUM 140 MMOL/L (135-148)
[2016-11-05 23:41] LABS: MANUAL DIFF NO %
[2016-11-06 05:16] LABS: BASOPHILS 0.1 %; BASOPHILS ABSOLUTE 0.01 10/3/uL (0.0-0.16); EOSINOPHILS 0.1 %; EOSINOPHILS ABSOLUTE 0.01 10/3/uL (0.0-0.53); IMMATURE GRANULOCYTES 0.5 %; IMMATURE GRANULOCYTES ABSOLUTE 0.09 10/3/uL (0.0-0.11); LYMPHOCYTES 5.9 %; LYMPHOCYTES ABSOLUTE 1.06 10/3/uL (0.67-4.30); MEAN CORPUS HGB CONC 33.7 g/dL (32.0-36.0); MEAN CORPUSCULAR VOLUME 86.1 fL (80-100); MEAN PLATELET VOLUME 9.8 fL (9.2-13.0); MONOCYTES 4.3 %; MONOCYTES ABSOLUTE 0.77 10/3/uL (0.21-1.20); NEUTROPHILS 89.1 %; NEUTROPHILS ABSOLUTE 16.06 10/3/uL (2.02-8.40); PLATELET COUNT 186 10/3/uL (150-400); RBC DISTRIBUTION WIDTH 17.2 % (12.0-16.0); RED CELL COUNT 2.31 10/6/uL (4.7-6.1)
[2016-11-06 05:19] LABS: HEMATOCRIT 19.9 % (40.0-51.0); HEMOGLOBIN 6.7 g/dL (13.6-17.8); MANUAL DIFF NO %
[2016-11-06 05:21] LABS: ALLENS TEST Pos; BE (BASE EXCESS) -5.5 MEQ/L (0 +/- 2.5); CARBOXYHEMOGLOBIN 0.4 % (0-3); HCO3 (ACTUAL BICARBONATE) 19.6 MEQ/L (23-27); HEMOBLOGIN CONTENT 9.1 G/DL (14-18); INSTRUMENT SERIAL # 35151; METHEMOGLOBIN 0.5 % (0-3); MODE CMV; O2 CONTENT 12.6 VOL% (18-24); PCO2 (CO2 TENSION) 36 MMHG (35-45); PO2 (O2 TENSION) 105 MMHG (79-93); SAMPLE Arterial; TIDAL VOLUME 500 ML; pH 7.35 (7.37-7.43)
[2016-11-06 05:52] LABS: BUN (BLOOD UREA NITROGEN) 21 MG/DL (6-23); CALCIUM, SERUM 8.8 MG/DL (8.5-10.4); CHLORIDE, SERUM 105 MMOL/L (96-112); CO2 (CARBON DIOXIDE) 21 MMOL/L (24-34); CREATININE 1.12 MG/DL (0.70-1.30); DIGOXIN 0.8 NG/ML (0.8-2.0); GFR AFRICAN AMERICAN 82 ML/MIN (>=60); GFR NON AFRICAN AMERICAN 71 ML/MIN (>=60); GLUCOSE, SERUM 161 MG/DL (60-99); PHOSPHORUS, SERUM 2.3 MG/DL (2.5-4.5); POTASSIUM, SERUM 4.1 MMOL/L (3.5-5.3); SODIUM, SERUM 141 MMOL/L (135-148)
[2016-11-06 07:01] LABS: PROCALCITONIN 0.16 ng/mL (<0.5)
[2016-11-06 12:45] LABS: BASOPHILS 0 %; EOSINOPHILS 0 %; IMMATURE GRANULOCYTES 0.3 %; IMMATURE GRANULOCYTES ABSOLUTE 0.05 10/3/uL (0.0-0.11); LYMPHOCYTES 7.2 %; LYMPHOCYTES ABSOLUTE 1.26 10/3/uL (0.67-4.30); MEAN CORPUS HGB CONC 33.1 g/dL (32.0-36.0); MEAN CORPUSCULAR HEMOGLOB 27.9 pg (26.0-34.0); MEAN CORPUSCULAR VOLUME 84.4 fL (80-100); MEAN PLATELET VOLUME 10.2 fL (9.2-13.0); MONOCYTES 5.9 %; MONOCYTES ABSOLUTE 1.03 10/3/uL (0.21-1.20); NEUTROPHILS 86.6 %; NEUTROPHILS ABSOLUTE 15.07 10/3/uL (2.02-8.40); PLATELET COUNT 160 10/3/uL (150-400); WHITE BLOOD CELLS 17.4 10/3/uL (4.5-10.5)
[2016-11-06 12:46] LABS: HEMATOCRIT 24.8 % (40.0-51.0); HEMOGLOBIN 8.2 g/dL (13.6-17.8); MANUAL DIFF NO %; RED CELL COUNT 2.94 10/6/uL (4.7-6.1)
[2016-11-06 12:59] LABS: BUN (BLOOD UREA NITROGEN) 18 MG/DL (6-23); CALCIUM, SERUM 8.5 MG/DL (8.5-10.4); CHLORIDE, SERUM 106 MMOL/L (96-112); CO2 (CARBON DIOXIDE) 22 MMOL/L (24-34); CREATININE 1.05 MG/DL (0.70-1.30); GFR AFRICAN AMERICAN 89 ML/MIN (>=60); GFR NON AFRICAN AMERICAN 77 ML/MIN (>=60); GLUCOSE, SERUM 132 MG/DL (60-99); SODIUM, SERUM 141 MMOL/L (135-148)
[2016-11-06 16:49] LABS: INTERNATIONAL NORMAL RATI 1.3 UNITS (-); PARTIAL THROMBO TIME 30.8 SEC (22.5-37.2)
[2016-11-06 16:50] LABS: PROTIME (NOT ORD) 16.2 SEC (12.0-14.5)
[2016-11-06 18:26] LABS: BASOPHILS 0 %; EOSINOPHILS 0 %; HEMATOCRIT 26.9 % (40.0-51.0); HEMOGLOBIN 8.8 g/dL (13.6-17.8); IMMATURE GRANULOCYTES 0.3 %; IMMATURE GRANULOCYTES ABSOLUTE 0.04 10/3/uL (0.0-0.11); LYMPHOCYTES 10.6 %; MEAN CORPUS HGB CONC 32.7 g/dL (32.0-36.0); MEAN CORPUSCULAR HEMOGLOB 27.8 pg (26.0-34.0); MEAN CORPUSCULAR VOLUME 85.1 fL (80-100); MEAN PLATELET VOLUME 10.1 fL (9.2-13.0); NEUTROPHILS 85.1 %; NEUTROPHILS ABSOLUTE 12.85 10/3/uL (2.02-8.40); PLATELET COUNT 172 10/3/uL (150-400); RED CELL COUNT 3.16 10/6/uL (4.7-6.1); WHITE BLOOD CELLS 15.1 10/3/uL (4.5-10.5)
[2016-11-06 18:27] LABS: MANUAL DIFF NO %
[2016-11-06 18:38] LABS: BUN (BLOOD UREA NITROGEN) 20 MG/DL (6-23); CALCIUM, SERUM 8.8 MG/DL (8.5-10.4); CHLORIDE, SERUM 106 MMOL/L (96-112); CO2 (CARBON DIOXIDE) 22 MMOL/L (24-34); CREATININE 1.28 MG/DL (0.70-1.30); GFR AFRICAN AMERICAN 70 ML/MIN (>=60); GFR NON AFRICAN AMERICAN 60 ML/MIN (>=60); GLUCOSE, SERUM 134 MG/DL (60-99); POTASSIUM, SERUM 3.9 MMOL/L (3.5-5.3); SODIUM, SERUM 140 MMOL/L (135-148)
[2016-11-06 18:44] LABS: PHOSPHORUS, SERUM 3.1 MG/DL (2.5-4.5)
[2016-11-06 23:13] LABS: BASOPHILS 0.1 %; BASOPHILS ABSOLUTE 0.01 10/3/uL (0.0-0.16); EOSINOPHILS 0.1 %; EOSINOPHILS ABSOLUTE 0.01 10/3/uL (0.0-0.53); HEMATOCRIT 24.5 % (40.0-51.0); HEMOGLOBIN 7.9 g/dL (13.6-17.8); IMMATURE GRANULOCYTES 0.4 %; IMMATURE GRANULOCYTES ABSOLUTE 0.05 10/3/uL (0.0-0.11); LYMPHOCYTES 11.3 %; LYMPHOCYTES ABSOLUTE 1.55 10/3/uL (0.67-4.30); MEAN CORPUS HGB CONC 32.2 g/dL (32.0-36.0); MEAN CORPUSCULAR HEMOGLOB 27.3 pg (26.0-34.0); MEAN CORPUSCULAR VOLUME 84.8 fL (80-100); MEAN PLATELET VOLUME 9.9 fL (9.2-13.0); MONOCYTES ABSOLUTE 0.55 10/3/uL (0.21-1.20); NEUTROPHILS 84.1 %; PLATELET COUNT 161 10/3/uL (150-400); RBC DISTRIBUTION WIDTH 16.9 % (12.0-16.0); RED CELL COUNT 2.89 10/6/uL (4.7-6.1); WHITE BLOOD CELLS 13.7 10/3/uL (4.5-10.5)
[2016-11-06 23:14] LABS: MANUAL DIFF NO %
[2016-11-06 23:32] LABS: BUN (BLOOD UREA NITROGEN) 18 MG/DL (6-23); CALCIUM, SERUM 8.3 MG/DL (8.5-10.4); CHLORIDE, SERUM 106 MMOL/L (96-112); CO2 (CARBON DIOXIDE) 22 MMOL/L (24-34); CREATININE 1.09 MG/DL (0.70-1.30); GFR AFRICAN AMERICAN 85 ML/MIN (>=60); GFR NON AFRICAN AMERICAN 73 ML/MIN (>=60); GLUCOSE, SERUM 130 MG/DL (60-99); SODIUM, SERUM 140 MMOL/L (135-148)
[2016-11-07 08:21] LABS: BASOPHILS 0 %; EOSINOPHILS 0.1 %; EOSINOPHILS ABSOLUTE 0.01 10/3/uL (0.0-0.53); HEMATOCRIT 23.9 % (40.0-51.0); IMMATURE GRANULOCYTES 0.3 %; IMMATURE GRANULOCYTES ABSOLUTE 0.04 10/3/uL (0.0-0.11); LYMPHOCYTES 9.8 %; LYMPHOCYTES ABSOLUTE 1.39 10/3/uL (0.67-4.30); MEAN CORPUS HGB CONC 33.5 g/dL (32.0-36.0); MEAN CORPUSCULAR HEMOGLOB 29.1 pg (26.0-34.0); MEAN CORPUSCULAR VOLUME 86.9 fL (80-100); MEAN PLATELET VOLUME 10.1 fL (9.2-13.0); MONOCYTES 9.6 %; MONOCYTES ABSOLUTE 1.36 10/3/uL (0.21-1.20); NEUTROPHILS 80.2 %; NEUTROPHILS ABSOLUTE 11.33 10/3/uL (2.02-8.40); PLATELET COUNT 164 10/3/uL (150-400); RBC DISTRIBUTION WIDTH 17.1 % (12.0-16.0); RED CELL COUNT 2.75 10/6/uL (4.7-6.1); WHITE BLOOD CELLS 14.1 10/3/uL (4.5-10.5)
[2016-11-07 08:26] LABS: MANUAL DIFF NO %
[2016-11-07 08:58] LABS: BUN (BLOOD UREA NITROGEN) 19 MG/DL (6-23); CHLORIDE, SERUM 106 MMOL/L (96-112); CO2 (CARBON DIOXIDE) 21 MMOL/L (24-34); CREATININE 1.16 MG/DL (0.70-1.30); GFR AFRICAN AMERICAN 79 ML/MIN (>=60); GFR NON AFRICAN AMERICAN 68 ML/MIN (>=60); GLUCOSE, SERUM 142 MG/DL (60-99); SODIUM, SERUM 140 MMOL/L (135-148)
[2016-11-07 08:59] LABS: PHOSPHORUS, SERUM 1.9 MG/DL (2.5-4.5)
[2016-11-07 11:54] LABS: BASOPHILS 0.1 %; BASOPHILS ABSOLUTE 0.01 10/3/uL (0.0-0.16); EOSINOPHILS 0.2 %; EOSINOPHILS ABSOLUTE 0.03 10/3/uL (0.0-0.53); HEMATOCRIT 24.8 % (40.0-51.0); HEMOGLOBIN 8.1 g/dL (13.6-17.8); IMMATURE GRANULOCYTES 0.4 %; IMMATURE GRANULOCYTES ABSOLUTE 0.05 10/3/uL (0.0-0.11); LYMPHOCYTES 9.5 %; LYMPHOCYTES ABSOLUTE 1.29 10/3/uL (0.67-4.30); MEAN CORPUS HGB CONC 32.7 g/dL (32.0-36.0); MEAN CORPUSCULAR HEMOGLOB 28.2 pg (26.0-34.0); MEAN CORPUSCULAR VOLUME 86.4 fL (80-100); MEAN PLATELET VOLUME 9.7 fL (9.2-13.0); MONOCYTES 10.2 %; MONOCYTES ABSOLUTE 1.38 10/3/uL (0.21-1.20); NEUTROPHILS 79.6 %; PLATELET COUNT 153 10/3/uL (150-400); RED CELL COUNT 2.87 10/6/uL (4.7-6.1); WHITE BLOOD CELLS 13.6 10/3/uL (4.5-10.5)
[2016-11-07 11:55] LABS: MANUAL DIFF NO %
[2016-11-07 12:11] LABS: BUN (BLOOD UREA NITROGEN) 17 MG/DL (6-23); CALCIUM, SERUM 8.3 MG/DL (8.5-10.4); CHLORIDE, SERUM 105 MMOL/L (96-112); CO2 (CARBON DIOXIDE) 23 MMOL/L (24-34); CREATININE 1.16 MG/DL (0.70-1.30); GFR AFRICAN AMERICAN 79 ML/MIN (>=60); GFR NON AFRICAN AMERICAN 68 ML/MIN (>=60); GLUCOSE, SERUM 134 MG/DL (60-99); POTASSIUM, SERUM 3.8 MMOL/L (3.5-5.3); SODIUM, SERUM 141 MMOL/L (135-148)
[2016-11-07 17:51] LABS: BASOPHILS 0.1 %; BASOPHILS ABSOLUTE 0.01 10/3/uL (0.0-0.16); EOSINOPHILS 0.2 %; EOSINOPHILS ABSOLUTE 0.03 10/3/uL (0.0-0.53); HEMATOCRIT 24.6 % (40.0-51.0); HEMOGLOBIN 7.8 g/dL (13.6-17.8); IMMATURE GRANULOCYTES 0.2 %; IMMATURE GRANULOCYTES ABSOLUTE 0.03 10/3/uL (0.0-0.11); LYMPHOCYTES 13.1 %; LYMPHOCYTES ABSOLUTE 1.65 10/3/uL (0.67-4.30); MEAN CORPUS HGB CONC 31.7 g/dL (32.0-36.0); MEAN CORPUSCULAR HEMOGLOB 27.6 pg (26.0-34.0); MEAN CORPUSCULAR VOLUME 86.9 fL (80-100); MONOCYTES 8.2 %; MONOCYTES ABSOLUTE 1.03 10/3/uL (0.21-1.20); NEUTROPHILS 78.2 %; NEUTROPHILS ABSOLUTE 9.81 10/3/uL (2.02-8.40); PLATELET COUNT 124 10/3/uL (150-400); RED CELL COUNT 2.83 10/6/uL (4.7-6.1); WHITE BLOOD CELLS 12.6 10/3/uL (4.5-10.5)
[2016-11-07 17:52] LABS: MANUAL DIFF NO %
[2016-11-07 18:09] LABS: BUN (BLOOD UREA NITROGEN) 16 MG/DL (6-23); CALCIUM, SERUM 8.2 MG/DL (8.5-10.4); CHLORIDE, SERUM 106 MMOL/L (96-112); CO2 (CARBON DIOXIDE) 23 MMOL/L (24-34); CREATININE 0.99 MG/DL (0.70-1.30); GFR AFRICAN AMERICAN 96 ML/MIN (>=60); GFR NON AFRICAN AMERICAN 82 ML/MIN (>=60); PHOSPHORUS, SERUM 2.4 MG/DL (2.5-4.5); POTASSIUM, SERUM 3.7 MMOL/L (3.5-5.3); SODIUM, SERUM 140 MMOL/L (135-148)
[2016-11-07 18:10] LABS: GLUCOSE, SERUM 104 MG/DL (60-99)
[2016-11-07 18:21] LABS: ANISOCYTOSIS 1+ (5-10/OIF) (0-5/OIF); PLATELET ESTIMATE SLT DEC (ADEQUATE)
[2016-11-07 23:55] LABS: BASOPHILS 0 %; EOSINOPHILS 0.6 %; EOSINOPHILS ABSOLUTE 0.07 10/3/uL (0.0-0.53); HEMATOCRIT 24.6 % (40.0-51.0); IMMATURE GRANULOCYTES 0.2 %; IMMATURE GRANULOCYTES ABSOLUTE 0.02 10/3/uL (0.0-0.11); LYMPHOCYTES 12.9 %; MEAN CORPUS HGB CONC 32.5 g/dL (32.0-36.0); MEAN CORPUSCULAR HEMOGLOB 28.1 pg (26.0-34.0); MEAN CORPUSCULAR VOLUME 86.3 fL (80-100); MEAN PLATELET VOLUME 9.8 fL (9.2-13.0); MONOCYTES ABSOLUTE 1.05 10/3/uL (0.21-1.20); NEUTROPHILS 77.3 %; PLATELET COUNT 141 10/3/uL (150-400); RBC DISTRIBUTION WIDTH 17.3 % (12.0-16.0); RED CELL COUNT 2.85 10/6/uL (4.7-6.1); WHITE BLOOD CELLS 11.6 10/3/uL (4.5-10.5)
[2016-11-07 23:58] LABS: MANUAL DIFF NO %
[2016-11-08 00:09] LABS: BUN (BLOOD UREA NITROGEN) 15 MG/DL (6-23); CALCIUM, SERUM 8.3 MG/DL (8.5-10.4); CHLORIDE, SERUM 106 MMOL/L (96-112); CO2 (CARBON DIOXIDE) 24 MMOL/L (24-34); CREATININE 0.97 MG/DL (0.70-1.30); GFR AFRICAN AMERICAN 98 ML/MIN (>=60); GFR NON AFRICAN AMERICAN 85 ML/MIN (>=60); GLUCOSE, SERUM 89 MG/DL (60-99); PHOSPHORUS, SERUM 2.9 MG/DL (2.5-4.5); POTASSIUM, SERUM 3.7 MMOL/L (3.5-5.3); SODIUM, SERUM 141 MMOL/L (135-148)
[2016-11-08 03:43] LABS: ALLENS TEST Pos; BE (BASE EXCESS) -4.9 MEQ/L (0 +/- 2.5); CARBOXYHEMOGLOBIN 0.4 % (0-3); DEVICE NC; HCO3 (ACTUAL BICARBONATE) 20.9 MEQ/L (23-27); HEMOBLOGIN CONTENT 9.4 G/DL (14-18); INSTRUMENT SERIAL # 35151; METHEMOGLOBIN 0.4 % (0-3); OPERATOR ID 23712; PCO2 (CO2 TENSION) 42 MMHG (35-45); PO2 (O2 TENSION) 63 MMHG (79-93); SAMPLE Arterial; pH 7.32 (7.37-7.43)
[2016-11-08 05:15] LABS: BASOPHILS 0.1 %; BASOPHILS ABSOLUTE 0.01 10/3/uL (0.0-0.16); EOSINOPHILS 0.4 %; EOSINOPHILS ABSOLUTE 0.05 10/3/uL (0.0-0.53); HEMATOCRIT 25.2 % (40.0-51.0); HEMOGLOBIN 8.3 g/dL (13.6-17.8); IMMATURE GRANULOCYTES 0.3 %; IMMATURE GRANULOCYTES ABSOLUTE 0.04 10/3/uL (0.0-0.11); LYMPHOCYTES 9.8 %; LYMPHOCYTES ABSOLUTE 1.15 10/3/uL (0.67-4.30); MEAN CORPUS HGB CONC 32.9 g/dL (32.0-36.0); MEAN CORPUSCULAR HEMOGLOB 28.8 pg (26.0-34.0); MEAN CORPUSCULAR VOLUME 87.5 fL (80-100); MEAN PLATELET VOLUME 9.8 fL (9.2-13.0); MONOCYTES 8.9 %; MONOCYTES ABSOLUTE 1.04 10/3/uL (0.21-1.20); NEUTROPHILS 80.5 %; NEUTROPHILS ABSOLUTE 9.41 10/3/uL (2.02-8.40); PLATELET COUNT 146 10/3/uL (150-400); RBC DISTRIBUTION WIDTH 17.2 % (12.0-16.0); RED CELL COUNT 2.88 10/6/uL (4.7-6.1); WHITE BLOOD CELLS 11.7 10/3/uL (4.5-10.5)
[2016-11-08 05:17] LABS: MANUAL DIFF NO %
[2016-11-08 05:20] LABS: BUN (BLOOD UREA NITROGEN) 13 MG/DL (6-23); CALCIUM, SERUM 8.6 MG/DL (8.5-10.4); CHLORIDE, SERUM 106 MMOL/L (96-112); CO2 (CARBON DIOXIDE) 23 MMOL/L (24-34); CREATININE 0.99 MG/DL (0.70-1.30); GFR AFRICAN AMERICAN 96 ML/MIN (>=60); GFR NON AFRICAN AMERICAN 82 ML/MIN (>=60); GLUCOSE, SERUM 87 MG/DL (60-99); PHOSPHORUS, SERUM 2.6 MG/DL (2.5-4.5); SODIUM, SERUM 141 MMOL/L (135-148)
[2016-11-08 11:01] LABS: HEMATOCRIT 27.2 % (40.0-51.0); HEMOGLOBIN 9.1 g/dL (13.6-17.8); MEAN CORPUS HGB CONC 33.5 g/dL (32.0-36.0); MEAN CORPUSCULAR HEMOGLOB 29.3 pg (26.0-34.0); MEAN CORPUSCULAR VOLUME 87.5 fL (80-100); MEAN PLATELET VOLUME 9.6 fL (9.2-13.0); PLATELET COUNT 159 10/3/uL (150-400); RBC DISTRIBUTION WIDTH 17.5 % (12.0-16.0); RED CELL COUNT 3.11 10/6/uL (4.7-6.1); WHITE BLOOD CELLS 14.7 10/3/uL (4.5-10.5)
[2016-11-08 11:03] LABS: MANUAL DIFF YES %
[2016-11-08 11:11] LABS: BUN (BLOOD UREA NITROGEN) 13 MG/DL (6-23); CALCIUM, SERUM 8.8 MG/DL (8.5-10.4); CHLORIDE, SERUM 106 MMOL/L (96-112); CO2 (CARBON DIOXIDE) 23 MMOL/L (24-34); CREATININE 1.03 MG/DL (0.70-1.30); GFR AFRICAN AMERICAN 91 ML/MIN (>=60); GFR NON AFRICAN AMERICAN 79 ML/MIN (>=60); GLUCOSE, SERUM 95 MG/DL (60-99); PHOSPHORUS, SERUM 2.5 MG/DL (2.5-4.5); POTASSIUM, SERUM 3.7 MMOL/L (3.5-5.3); SODIUM, SERUM 140 MMOL/L (135-148)
[2016-11-08 11:22] LABS: ANISOCYTOSIS 1+ (5-10/OIF) (0-5/OIF); LYMPHOCYTES 6 %; LYMPHOCYTES ABSOLUTE (CALC) 0.88 10/3/uL (0.67-4.30); MONOCYTES 13 %; MONOCYTES ABSOLUTE (CALC) 1.91 10/3/uL (0.21-1.20); NEUTROPHILS ABSOLUTE (CALC) 11.91 10/3/uL (2.02-8.40); PLATELET ESTIMATE ADQ (ADEQUATE); SEGMENTED NEUTROPHIL (0) 81 %; TOTAL NUCLEATED CELLS 100
[2016-11-08 16:51] LABS: BASOPHILS 0 %; EOSINOPHILS 0.4 %; EOSINOPHILS ABSOLUTE 0.06 10/3/uL (0.0-0.53); HEMATOCRIT 25.6 % (40.0-51.0); HEMOGLOBIN 8.4 g/dL (13.6-17.8); IMMATURE GRANULOCYTES 0.3 %; IMMATURE GRANULOCYTES ABSOLUTE 0.05 10/3/uL (0.0-0.11); LYMPHOCYTES 14.9 %; LYMPHOCYTES ABSOLUTE 2.33 10/3/uL (0.67-4.30); MANUAL DIFF NO %; MEAN CORPUS HGB CONC 32.8 g/dL (32.0-36.0); MEAN CORPUSCULAR HEMOGLOB 28.1 pg (26.0-34.0); MEAN CORPUSCULAR VOLUME 85.6 fL (80-100); MEAN PLATELET VOLUME 9.5 fL (9.2-13.0); MONOCYTES 3.3 %; MONOCYTES ABSOLUTE 0.52 10/3/uL (0.21-1.20); NEUTROPHILS 81.1 %; NEUTROPHILS ABSOLUTE 12.65 10/3/uL (2.02-8.40); PLATELET COUNT 160 10/3/uL (150-400); RBC DISTRIBUTION WIDTH 17.7 % (12.0-16.0); RED CELL COUNT 2.99 10/6/uL (4.7-6.1); WHITE BLOOD CELLS 15.6 10/3/uL (4.5-10.5)
[2016-11-08 16:58] LABS: BUN (BLOOD UREA NITROGEN) 14 MG/DL (6-23); CALCIUM, SERUM 9.1 MG/DL (8.5-10.4); CHLORIDE, SERUM 106 MMOL/L (96-112); CO2 (CARBON DIOXIDE) 22 MMOL/L (24-34); GFR AFRICAN AMERICAN 94 ML/MIN (>=60); GFR NON AFRICAN AMERICAN 81 ML/MIN (>=60); GLUCOSE, SERUM 99 MG/DL (60-99); PHOSPHORUS, SERUM 2.3 MG/DL (2.5-4.5); SODIUM, SERUM 139 MMOL/L (135-148)
[2016-11-08 22:55] LABS: BASOPHILS 0.1 %; BASOPHILS ABSOLUTE 0.01 10/3/uL (0.0-0.16); EOSINOPHILS 0.7 %; HEMATOCRIT 24.4 % (40.0-51.0); HEMOGLOBIN 8.2 g/dL (13.6-17.8); IMMATURE GRANULOCYTES 0.4 %; IMMATURE GRANULOCYTES ABSOLUTE 0.06 10/3/uL (0.0-0.11); LYMPHOCYTES 13.9 %; MANUAL DIFF NO %; MEAN CORPUS HGB CONC 33.6 g/dL (32.0-36.0); MEAN CORPUSCULAR HEMOGLOB 29.2 pg (26.0-34.0); MEAN CORPUSCULAR VOLUME 86.8 fL (80-100); MEAN PLATELET VOLUME 9.6 fL (9.2-13.0); MONOCYTES 8.9 %; MONOCYTES ABSOLUTE 1.22 10/3/uL (0.21-1.20); NEUTROPHILS ABSOLUTE 10.42 10/3/uL (2.02-8.40); PLATELET COUNT 152 10/3/uL (150-400); RBC DISTRIBUTION WIDTH 17.3 % (12.0-16.0); RED CELL COUNT 2.81 10/6/uL (4.7-6.1); WHITE BLOOD CELLS 13.7 10/3/uL (4.5-10.5)
[2016-11-08 23:06] LABS: BUN (BLOOD UREA NITROGEN) 12 MG/DL (6-23); CHLORIDE, SERUM 105 MMOL/L (96-112); CO2 (CARBON DIOXIDE) 23 MMOL/L (24-34); GFR AFRICAN AMERICAN 107 ML/MIN (>=60); GFR NON AFRICAN AMERICAN 93 ML/MIN (>=60); GLUCOSE, SERUM 95 MG/DL (60-99); PHOSPHORUS, SERUM 2.6 MG/DL (2.5-4.5); POTASSIUM, SERUM 3.7 MMOL/L (3.5-5.3); SODIUM, SERUM 139 MMOL/L (135-148)
[2016-11-09 05:44] LABS: BASOPHILS 0 %; EOSINOPHILS 0.5 %; EOSINOPHILS ABSOLUTE 0.06 10/3/uL (0.0-0.53); HEMATOCRIT 23.4 % (40.0-51.0); HEMOGLOBIN 7.8 g/dL (13.6-17.8); IMMATURE GRANULOCYTES 0.3 %; IMMATURE GRANULOCYTES ABSOLUTE 0.03 10/3/uL (0.0-0.11); LYMPHOCYTES 9.6 %; LYMPHOCYTES ABSOLUTE 1.07 10/3/uL (0.67-4.30); MEAN CORPUS HGB CONC 33.3 g/dL (32.0-36.0); MEAN CORPUSCULAR HEMOGLOB 29.1 pg (26.0-34.0); MEAN CORPUSCULAR VOLUME 87.3 fL (80-100); MEAN PLATELET VOLUME 9.3 fL (9.2-13.0); MONOCYTES 8.4 %; MONOCYTES ABSOLUTE 0.93 10/3/uL (0.21-1.20); NEUTROPHILS 81.2 %; NEUTROPHILS ABSOLUTE 9.02 10/3/uL (2.02-8.40); PLATELET COUNT 131 10/3/uL (150-400); RBC DISTRIBUTION WIDTH 17.6 % (12.0-16.0); RED CELL COUNT 2.68 10/6/uL (4.7-6.1); WHITE BLOOD CELLS 11.1 10/3/uL (4.5-10.5)
[2016-11-09 05:50] LABS: MANUAL DIFF NO %
[2016-11-09 06:11] LABS: BUN (BLOOD UREA NITROGEN) 11 MG/DL (6-23); CALCIUM, SERUM 8.7 MG/DL (8.5-10.4); CHLORIDE, SERUM 107 MMOL/L (96-112); CO2 (CARBON DIOXIDE) 21 MMOL/L (24-34); CREATININE 0.96 MG/DL (0.70-1.30); GFR AFRICAN AMERICAN 99 ML/MIN (>=60); GFR NON AFRICAN AMERICAN 86 ML/MIN (>=60); GLUCOSE, SERUM 91 MG/DL (60-99); PHOSPHORUS, SERUM 2.8 MG/DL (2.5-4.5); POTASSIUM, SERUM 3.9 MMOL/L (3.5-5.3); SODIUM, SERUM 141 MMOL/L (135-148)
[2016-11-09 06:13] LABS: DIGOXIN 0.8 NG/ML (0.8-2.0)
[2016-11-09 12:00] LABS: BASOPHILS 0.1 %; BASOPHILS ABSOLUTE 0.01 10/3/uL (0.0-0.16); EOSINOPHILS 0.9 %; EOSINOPHILS ABSOLUTE 0.11 10/3/uL (0.0-0.53); HEMATOCRIT 24.2 % (40.0-51.0); HEMOGLOBIN 7.9 g/dL (13.6-17.8); IMMATURE GRANULOCYTES 0.3 %; IMMATURE GRANULOCYTES ABSOLUTE 0.03 10/3/uL (0.0-0.11); LYMPHOCYTES 12.2 %; LYMPHOCYTES ABSOLUTE 1.45 10/3/uL (0.67-4.30); MEAN CORPUS HGB CONC 32.6 g/dL (32.0-36.0); MEAN CORPUSCULAR HEMOGLOB 28.3 pg (26.0-34.0); MEAN CORPUSCULAR VOLUME 86.7 fL (80-100); MEAN PLATELET VOLUME 9.5 fL (9.2-13.0); MONOCYTES 5.8 %; MONOCYTES ABSOLUTE 0.69 10/3/uL (0.21-1.20); NEUTROPHILS 80.7 %; NEUTROPHILS ABSOLUTE 9.63 10/3/uL (2.02-8.40); PLATELET COUNT 142 10/3/uL (150-400); RBC DISTRIBUTION WIDTH 17.9 % (12.0-16.0); RED CELL COUNT 2.79 10/6/uL (4.7-6.1); WHITE BLOOD CELLS 11.9 10/3/uL (4.5-10.5)
[2016-11-09 12:01] LABS: MANUAL DIFF NO %
[2016-11-09 12:13] LABS: BUN (BLOOD UREA NITROGEN) 10 MG/DL (6-23); CHLORIDE, SERUM 107 MMOL/L (96-112); CO2 (CARBON DIOXIDE) 23 MMOL/L (24-34); CREATININE 0.93 MG/DL (0.70-1.30); GFR AFRICAN AMERICAN 103 ML/MIN (>=60); GFR NON AFRICAN AMERICAN 89 ML/MIN (>=60); GLUCOSE, SERUM 87 MG/DL (60-99); POTASSIUM, SERUM 3.9 MMOL/L (3.5-5.3); SODIUM, SERUM 141 MMOL/L (135-148)
[2016-11-09 17:23] LABS: BASOPHILS 0 %; EOSINOPHILS 0.4 %; EOSINOPHILS ABSOLUTE 0.05 10/3/uL (0.0-0.53); HEMATOCRIT 23.4 % (40.0-51.0); HEMOGLOBIN 7.8 g/dL (13.6-17.8); IMMATURE GRANULOCYTES 0.3 %; IMMATURE GRANULOCYTES ABSOLUTE 0.04 10/3/uL (0.0-0.11); LYMPHOCYTES 10.3 %; LYMPHOCYTES ABSOLUTE 1.24 10/3/uL (0.67-4.30); MANUAL DIFF NO %; MEAN CORPUS HGB CONC 33.3 g/dL (32.0-36.0); MEAN CORPUSCULAR HEMOGLOB 29.2 pg (26.0-34.0); MEAN CORPUSCULAR VOLUME 87.6 fL (80-100); MEAN PLATELET VOLUME 9.9 fL (9.2-13.0); MONOCYTES 9.4 %; MONOCYTES ABSOLUTE 1.13 10/3/uL (0.21-1.20); NEUTROPHILS 79.6 %; NEUTROPHILS ABSOLUTE 9.61 10/3/uL (2.02-8.40); PLATELET COUNT 145 10/3/uL (150-400); RED CELL COUNT 2.67 10/6/uL (4.7-6.1); WHITE BLOOD CELLS 12.1 10/3/uL (4.5-10.5)
[2016-11-09 17:56] LABS: BUN (BLOOD UREA NITROGEN) 10 MG/DL (6-23); CALCIUM, SERUM 8.3 MG/DL (8.5-10.4); CHLORIDE, SERUM 107 MMOL/L (96-112); CO2 (CARBON DIOXIDE) 21 MMOL/L (24-34); CREATININE 0.98 MG/DL (0.70-1.30); GFR AFRICAN AMERICAN 97 ML/MIN (>=60); GFR NON AFRICAN AMERICAN 83 ML/MIN (>=60); POTASSIUM, SERUM 3.8 MMOL/L (3.5-5.3); SODIUM, SERUM 140 MMOL/L (135-148)
[2016-11-09 17:57] LABS: GLUCOSE, SERUM 111 MG/DL (60-99); PHOSPHORUS, SERUM 1.8 MG/DL (2.5-4.5)
[2016-11-09 23:41] LABS: BASOPHILS 0.1 %; BASOPHILS ABSOLUTE 0.01 10/3/uL (0.0-0.16); EOSINOPHILS 0.8 %; EOSINOPHILS ABSOLUTE 0.08 10/3/uL (0.0-0.53); HEMATOCRIT 23.8 % (40.0-51.0); HEMOGLOBIN 7.8 g/dL (13.6-17.8); IMMATURE GRANULOCYTES 0.4 %; IMMATURE GRANULOCYTES ABSOLUTE 0.04 10/3/uL (0.0-0.11); LYMPHOCYTES 11.3 %; LYMPHOCYTES ABSOLUTE 1.19 10/3/uL (0.67-4.30); MANUAL DIFF NO %; MEAN CORPUS HGB CONC 32.8 g/dL (32.0-36.0); MEAN CORPUSCULAR HEMOGLOB 28.9 pg (26.0-34.0); MEAN CORPUSCULAR VOLUME 88.1 fL (80-100); MEAN PLATELET VOLUME 9.4 fL (9.2-13.0); MONOCYTES 8.6 %; MONOCYTES ABSOLUTE 0.91 10/3/uL (0.21-1.20); NEUTROPHILS 78.8 %; NEUTROPHILS ABSOLUTE 8.34 10/3/uL (2.02-8.40); PLATELET COUNT 135 10/3/uL (150-400); RBC DISTRIBUTION WIDTH 18.1 % (12.0-16.0); WHITE BLOOD CELLS 10.6 10/3/uL (4.5-10.5)
[2016-11-09 23:55] LABS: BUN (BLOOD UREA NITROGEN) 8 MG/DL (6-23); CALCIUM, SERUM 8.6 MG/DL (8.5-10.4); CHLORIDE, SERUM 107 MMOL/L (96-112); CO2 (CARBON DIOXIDE) 23 MMOL/L (24-34); CREATININE 0.87 MG/DL (0.70-1.30); GFR AFRICAN AMERICAN 109 ML/MIN (>=60); GFR NON AFRICAN AMERICAN 94 ML/MIN (>=60); GLUCOSE, SERUM 102 MG/DL (60-99); POTASSIUM, SERUM 3.9 MMOL/L (3.5-5.3); SODIUM, SERUM 142 MMOL/L (135-148)
[2016-11-10 05:43] LABS: BASOPHILS 0 %; EOSINOPHILS 0.6 %; EOSINOPHILS ABSOLUTE 0.06 10/3/uL (0.0-0.53); HEMATOCRIT 23.3 % (40.0-51.0); HEMOGLOBIN 7.7 g/dL (13.6-17.8); IMMATURE GRANULOCYTES 0.3 %; IMMATURE GRANULOCYTES ABSOLUTE 0.03 10/3/uL (0.0-0.11); LYMPHOCYTES 5.5 %; LYMPHOCYTES ABSOLUTE 0.57 10/3/uL (0.67-4.30); MEAN CORPUSCULAR HEMOGLOB 29.3 pg (26.0-34.0); MEAN CORPUSCULAR VOLUME 88.6 fL (80-100); MEAN PLATELET VOLUME 9.8 fL (9.2-13.0); MONOCYTES 13.2 %; MONOCYTES ABSOLUTE 1.37 10/3/uL (0.21-1.20); NEUTROPHILS 80.4 %; NEUTROPHILS ABSOLUTE 8.37 10/3/uL (2.02-8.40); PLATELET COUNT 137 10/3/uL (150-400); RBC DISTRIBUTION WIDTH 18.1 % (12.0-16.0); RED CELL COUNT 2.63 10/6/uL (4.7-6.1); WHITE BLOOD CELLS 10.4 10/3/uL (4.5-10.5)
[2016-11-10 05:48] LABS: MANUAL DIFF NO %
[2016-11-10 05:59] LABS: BUN (BLOOD UREA NITROGEN) 8 MG/DL (6-23); CHLORIDE, SERUM 105 MMOL/L (96-112); CO2 (CARBON DIOXIDE) 20 MMOL/L (24-34); CREATININE 0.95 MG/DL (0.70-1.30); GFR AFRICAN AMERICAN 100 ML/MIN (>=60); GFR NON AFRICAN AMERICAN 87 ML/MIN (>=60); POTASSIUM, SERUM 3.8 MMOL/L (3.5-5.3); SODIUM, SERUM 137 MMOL/L (135-148)
[2016-11-10 06:00] LABS: GLUCOSE, SERUM 199 MG/DL (60-99); PHOSPHORUS, SERUM 2.6 MG/DL (2.5-4.5)
[2016-11-11 04:05] LABS: HEMATOCRIT 22.1 % (40.0-51.0); HEMOGLOBIN 7.4 g/dL (13.6-17.8); MEAN CORPUS HGB CONC 33.5 g/dL (32.0-36.0); MEAN CORPUSCULAR HEMOGLOB 29.7 pg (26.0-34.0); MEAN CORPUSCULAR VOLUME 88.8 fL (80-100); MEAN PLATELET VOLUME 9.3 fL (9.2-13.0); PLATELET COUNT 143 10/3/uL (150-400); RBC DISTRIBUTION WIDTH 18.9 % (12.0-16.0); RED CELL COUNT 2.49 10/6/uL (4.7-6.1); WHITE BLOOD CELLS 10.4 10/3/uL (4.5-10.5)
[2016-11-11 04:13] LABS: MANUAL DIFF YES %
[2016-11-11 04:16] LABS: ALBUMIN 2.6 G/DL (3.5-5.0); CHLORIDE, SERUM 108 MMOL/L (96-112); CO2 (CARBON DIOXIDE) 23 MMOL/L (24-34); PHOSPHORUS, SERUM 2.9 MG/DL (2.5-4.5); POTASSIUM, SERUM 3.8 MMOL/L (3.5-5.3); SODIUM, SERUM 142 MMOL/L (135-148)
[2016-11-11 04:17] LABS: BUN (BLOOD UREA NITROGEN) 18 MG/DL (6-23); CREATININE 1.81 MG/DL (0.70-1.30); GFR AFRICAN AMERICAN 46 ML/MIN (>=60); GFR NON AFRICAN AMERICAN 40 ML/MIN (>=60); GLUCOSE, SERUM 74 MG/DL (60-99)
[2016-11-11 04:44] LABS: ANISOCYTOSIS 1+ (5-10/OIF) (0-5/OIF); EOSINOPHILS 1 %; LYMPHOCYTES 9 %; LYMPHOCYTES ABSOLUTE (CALC) 0.94 10/3/uL (0.67-4.30); MONOCYTES 6 %; MONOCYTES ABSOLUTE (CALC) 0.62 10/3/uL (0.21-1.20); NEUTROPHILS ABSOLUTE (CALC) 8.74 10/3/uL (2.02-8.40); PLATELET ESTIMATE ADQ (ADEQUATE); RBC MORPHOLOGY ABN (NORMAL); SCHISTOCYTES FEW (3-10/OIF); SEGMENTED NEUTROPHIL (0) 84 %; TEARDROP SHAPED RBCS FEW (3-10/OIF); TOTAL NUCLEATED CELLS 100
[2016-11-11 04:45] LABS: OVALOCYTES 1+ (3-10/OIF) (0-2/OIF); POIKILOCYTOSIS 1+ (5-10/OIF) (0-5/OIF)
[2016-11-12 06:21] LABS: BASOPHILS 0.1 %; BASOPHILS ABSOLUTE 0.01 10/3/uL (0.0-0.16); EOSINOPHILS ABSOLUTE 0.11 10/3/uL (0.0-0.53); HEMATOCRIT 22.6 % (40.0-51.0); HEMOGLOBIN 7.3 g/dL (13.6-17.8); IMMATURE GRANULOCYTES 0.3 %; IMMATURE GRANULOCYTES ABSOLUTE 0.03 10/3/uL (0.0-0.11); LYMPHOCYTES 7.1 %; LYMPHOCYTES ABSOLUTE 0.78 10/3/uL (0.67-4.30); MANUAL DIFF NO %; MEAN CORPUS HGB CONC 32.3 g/dL (32.0-36.0); MEAN CORPUSCULAR HEMOGLOB 28.9 pg (26.0-34.0); MEAN CORPUSCULAR VOLUME 89.3 fL (80-100); MEAN PLATELET VOLUME 9.7 fL (9.2-13.0); MONOCYTES 19.2 %; NEUTROPHILS 72.3 %; PLATELET COUNT 138 10/3/uL (150-400); RBC DISTRIBUTION WIDTH 19.2 % (12.0-16.0); RED CELL COUNT 2.53 10/6/uL (4.7-6.1); WHITE BLOOD CELLS 10.9 10/3/uL (4.5-10.5)
[2016-11-12 06:27] LABS: ALBUMIN 2.6 G/DL (3.5-5.0); BUN (BLOOD UREA NITROGEN) 16 MG/DL (6-23); CALCIUM, SERUM 8.5 MG/DL (8.5-10.4); CHLORIDE, SERUM 107 MMOL/L (96-112); CO2 (CARBON DIOXIDE) 26 MMOL/L (24-34); GFR AFRICAN AMERICAN 41 ML/MIN (>=60); GFR NON AFRICAN AMERICAN 35 ML/MIN (>=60); PHOSPHORUS, SERUM 2.3 MG/DL (2.5-4.5); POTASSIUM, SERUM 3.7 MMOL/L (3.5-5.3); SODIUM, SERUM 143 MMOL/L (135-148)
[2016-11-12 06:34] LABS: GLUCOSE, SERUM 89 MG/DL (60-99)
[2016-11-13 04:22] LABS: BASOPHILS 0.2 %; BASOPHILS ABSOLUTE 0.02 10/3/uL (0.0-0.16); EOSINOPHILS 1.1 %; EOSINOPHILS ABSOLUTE 0.13 10/3/uL (0.0-0.53); HEMATOCRIT 23.5 % (40.0-51.0); HEMOGLOBIN 7.7 g/dL (13.6-17.8); IMMATURE GRANULOCYTES 0.2 %; IMMATURE GRANULOCYTES ABSOLUTE 0.03 10/3/uL (0.0-0.11); LYMPHOCYTES 9.7 %; LYMPHOCYTES ABSOLUTE 1.19 10/3/uL (0.67-4.30); MEAN CORPUS HGB CONC 32.8 g/dL (32.0-36.0); MEAN CORPUSCULAR HEMOGLOB 29.5 pg (26.0-34.0); MEAN PLATELET VOLUME 9.9 fL (9.2-13.0); MONOCYTES 14.1 %; MONOCYTES ABSOLUTE 1.73 10/3/uL (0.21-1.20); NEUTROPHILS 74.7 %; NEUTROPHILS ABSOLUTE 9.17 10/3/uL (2.02-8.40); PLATELET COUNT 136 10/3/uL (150-400); RBC DISTRIBUTION WIDTH 19.4 % (12.0-16.0); RED CELL COUNT 2.61 10/6/uL (4.7-6.1); WHITE BLOOD CELLS 12.3 10/3/uL (4.5-10.5)
[2016-11-13 04:24] LABS: MANUAL DIFF NO %
[2016-11-13 04:37] LABS: ALBUMIN 2.6 G/DL (3.5-5.0); CALCIUM, SERUM 8.5 MG/DL (8.5-10.4); CHLORIDE, SERUM 105 MMOL/L (96-112); CO2 (CARBON DIOXIDE) 24 MMOL/L (24-34); GFR AFRICAN AMERICAN 26 ML/MIN (>=60); GFR NON AFRICAN AMERICAN 22 ML/MIN (>=60); GLUCOSE, SERUM 97 MG/DL (60-99); PHOSPHORUS, SERUM 2.7 MG/DL (2.5-4.5); SODIUM, SERUM 140 MMOL/L (135-148)
[2016-11-13 04:38] LABS: BUN (BLOOD UREA NITROGEN) 24 MG/DL (6-23); CREATININE 2.94 MG/DL (0.70-1.30)
[2016-11-13 14:02] LABS: HEPATITIS B CORE AB IGM NON-REACTIVE (NON-REAC); HEPATITIS C ANTIBODY NON-REACTIVE (NON-REACT)
[2016-11-13 14:03] LABS: HIV COMBO NON-REACTIVE (NON REAC)
[2016-11-13 14:04] LABS: HEP A ANTIBODY IGM NON-REACTIVE (NON-REACT)
[2016-11-13 14:46] LABS: HEPATITIS B SURFACE ANTIGEN NON-REACTIVE (NON-REACT)
[2016-11-14 06:22] LABS: BASOPHILS 0.2 %; BASOPHILS ABSOLUTE 0.02 10/3/uL (0.0-0.16); EOSINOPHILS 1.3 %; EOSINOPHILS ABSOLUTE 0.14 10/3/uL (0.0-0.53); HEMATOCRIT 22.7 % (40.0-51.0); HEMOGLOBIN 7.4 g/dL (13.6-17.8); IMMATURE GRANULOCYTES 0.2 %; IMMATURE GRANULOCYTES ABSOLUTE 0.02 10/3/uL (0.0-0.11); LYMPHOCYTES 10.5 %; LYMPHOCYTES ABSOLUTE 1.12 10/3/uL (0.67-4.30); MEAN CORPUS HGB CONC 32.6 g/dL (32.0-36.0); MEAN CORPUSCULAR HEMOGLOB 28.5 pg (26.0-34.0); MEAN CORPUSCULAR VOLUME 87.3 fL (80-100); MEAN PLATELET VOLUME 9.9 fL (9.2-13.0); MONOCYTES 17.1 %; MONOCYTES ABSOLUTE 1.83 10/3/uL (0.21-1.20); NEUTROPHILS 70.7 %; NEUTROPHILS ABSOLUTE 7.57 10/3/uL (2.02-8.40); PLATELET COUNT 129 10/3/uL (150-400); RBC DISTRIBUTION WIDTH 19.6 % (12.0-16.0); WHITE BLOOD CELLS 10.7 10/3/uL (4.5-10.5)
[2016-11-14 06:24] LABS: ALBUMIN 2.3 G/DL (3.5-5.0); BUN (BLOOD UREA NITROGEN) 22 MG/DL (6-23); CALCIUM, SERUM 8.3 MG/DL (8.5-10.4); CHLORIDE, SERUM 105 MMOL/L (96-112); CO2 (CARBON DIOXIDE) 23 MMOL/L (24-34); CREATININE 3.01 MG/DL (0.70-1.30); GFR AFRICAN AMERICAN 25 ML/MIN (>=60); GFR NON AFRICAN AMERICAN 21 ML/MIN (>=60); GLUCOSE, SERUM 72 MG/DL (60-99); MANUAL DIFF NO %; PHOSPHORUS, SERUM 2.4 MG/DL (2.5-4.5); SODIUM, SERUM 138 MMOL/L (135-148)
[2016-11-15 06:11] LABS: BASOPHILS 0.3 %; BASOPHILS ABSOLUTE 0.03 10/3/uL (0.0-0.16); EOSINOPHILS 2.1 %; EOSINOPHILS ABSOLUTE 0.19 10/3/uL (0.0-0.53); HEMATOCRIT 23.6 % (40.0-51.0); HEMOGLOBIN 7.5 g/dL (13.6-17.8); IMMATURE GRANULOCYTES 0.2 %; IMMATURE GRANULOCYTES ABSOLUTE 0.02 10/3/uL (0.0-0.11); LYMPHOCYTES 10.5 %; LYMPHOCYTES ABSOLUTE 0.95 10/3/uL (0.67-4.30); MEAN CORPUS HGB CONC 31.8 g/dL (32.0-36.0); MEAN CORPUSCULAR HEMOGLOB 28.7 pg (26.0-34.0); MEAN PLATELET VOLUME 10.1 fL (9.2-13.0); MONOCYTES 16.7 %; MONOCYTES ABSOLUTE 1.51 10/3/uL (0.21-1.20); NEUTROPHILS 70.2 %; NEUTROPHILS ABSOLUTE 6.35 10/3/uL (2.02-8.40); PLATELET COUNT 125 10/3/uL (150-400); RBC DISTRIBUTION WIDTH 19.3 % (12.0-16.0); RED CELL COUNT 2.61 10/6/uL (4.7-6.1); WHITE BLOOD CELLS 9.1 10/3/uL (4.5-10.5)
[2016-11-15 06:13] LABS: MANUAL DIFF NO %; MEAN CORPUSCULAR VOLUME 90.4 fL (80-100)
[2016-11-15 06:18] LABS: ALBUMIN 2.2 G/DL (3.5-5.0); CALCIUM, SERUM 8.1 MG/DL (8.5-10.4); CHLORIDE, SERUM 105 MMOL/L (96-112); CO2 (CARBON DIOXIDE) 25 MMOL/L (24-34); GFR AFRICAN AMERICAN 18 ML/MIN (>=60); GFR NON AFRICAN AMERICAN 16 ML/MIN (>=60); GLUCOSE, SERUM 67 MG/DL (60-99); PHOSPHORUS, SERUM 2.4 MG/DL (2.5-4.5); SODIUM, SERUM 138 MMOL/L (135-148)
[2016-11-15 06:19] LABS: BUN (BLOOD UREA NITROGEN) 29 MG/DL (6-23); CREATININE 3.85 MG/DL (0.70-1.30)
[2016-11-16 05:48] LABS: BASOPHILS 0 %; EOSINOPHILS 0 %; HEMATOCRIT 24.1 % (40.0-51.0); HEMOGLOBIN 7.8 g/dL (13.6-17.8); IMMATURE GRANULOCYTES 0.6 %; IMMATURE GRANULOCYTES ABSOLUTE 0.04 10/3/uL (0.0-0.11); LYMPHOCYTES 8.4 %; LYMPHOCYTES ABSOLUTE 0.59 10/3/uL (0.67-4.30); MEAN CORPUS HGB CONC 32.4 g/dL (32.0-36.0); MEAN CORPUSCULAR HEMOGLOB 29.1 pg (26.0-34.0); MEAN CORPUSCULAR VOLUME 89.9 fL (80-100); MEAN PLATELET VOLUME 10.3 fL (9.2-13.0); MONOCYTES 2.3 %; MONOCYTES ABSOLUTE 0.16 10/3/uL (0.21-1.20); NEUTROPHILS 88.7 %; NEUTROPHILS ABSOLUTE 6.21 10/3/uL (2.02-8.40); PLATELET COUNT 139 10/3/uL (150-400); RBC DISTRIBUTION WIDTH 19.3 % (12.0-16.0); RED CELL COUNT 2.68 10/6/uL (4.7-6.1)
[2016-11-16 05:50] LABS: MANUAL DIFF NO %
[2016-11-16 05:52] LABS: ALBUMIN 2.5 G/DL (3.5-5.0); CALCIUM, SERUM 8.3 MG/DL (8.5-10.4); CHLORIDE, SERUM 103 MMOL/L (96-112); CO2 (CARBON DIOXIDE) 25 MMOL/L (24-34); PHOSPHORUS, SERUM 2.6 MG/DL (2.5-4.5); POTASSIUM, SERUM 4.3 MMOL/L (3.5-5.3); SODIUM, SERUM 140 MMOL/L (135-148)
[2016-11-16 05:53] LABS: BUN (BLOOD UREA NITROGEN) 24 MG/DL (6-23); GFR AFRICAN AMERICAN 22 ML/MIN (>=60); GFR NON AFRICAN AMERICAN 19 ML/MIN (>=60); GLUCOSE, SERUM 131 MG/DL (60-99)
[2016-11-17 06:51] LABS: BASOPHILS 0.1 %; BASOPHILS ABSOLUTE 0.01 10/3/uL (0.0-0.16); EOSINOPHILS 0.1 %; EOSINOPHILS ABSOLUTE 0.01 10/3/uL (0.0-0.53); HEMATOCRIT 25.7 % (40.0-51.0); HEMOGLOBIN 8.3 g/dL (13.6-17.8); IMMATURE GRANULOCYTES 0.3 %; IMMATURE GRANULOCYTES ABSOLUTE 0.04 10/3/uL (0.0-0.11); LYMPHOCYTES 5.2 %; LYMPHOCYTES ABSOLUTE 0.61 10/3/uL (0.67-4.30); MEAN CORPUS HGB CONC 32.3 g/dL (32.0-36.0); MEAN CORPUSCULAR HEMOGLOB 28.9 pg (26.0-34.0); MEAN CORPUSCULAR VOLUME 89.5 fL (80-100); MEAN PLATELET VOLUME 9.5 fL (9.2-13.0); MONOCYTES 5.9 %; MONOCYTES ABSOLUTE 0.69 10/3/uL (0.21-1.20); NEUTROPHILS 88.4 %; PLATELET COUNT 139 10/3/uL (150-400); RBC DISTRIBUTION WIDTH 19.1 % (12.0-16.0); RED CELL COUNT 2.87 10/6/uL (4.7-6.1)
[2016-11-17 06:53] LABS: MANUAL DIFF NO %; WHITE BLOOD CELLS 11.8 10/3/uL (4.5-10.5)
[2016-11-17 07:04] LABS: ALBUMIN 2.5 G/DL (3.5-5.0); BUN (BLOOD UREA NITROGEN) 35 MG/DL (6-23); CALCIUM, SERUM 8.2 MG/DL (8.5-10.4); CHLORIDE, SERUM 104 MMOL/L (96-112); CO2 (CARBON DIOXIDE) 24 MMOL/L (24-34); CREATININE 4.23 MG/DL (0.70-1.30); GFR AFRICAN AMERICAN 17 ML/MIN (>=60); GFR NON AFRICAN AMERICAN 14 ML/MIN (>=60); GLUCOSE, SERUM 104 MG/DL (60-99); PHOSPHORUS, SERUM 2.9 MG/DL (2.5-4.5); POTASSIUM, SERUM 4.2 MMOL/L (3.5-5.3); SODIUM, SERUM 138 MMOL/L (135-148)
[2016-11-18 09:29] LABS: BASOPHILS 0 %; EOSINOPHILS 0.2 %; EOSINOPHILS ABSOLUTE 0.02 10/3/uL (0.0-0.53); HEMATOCRIT 24.8 % (40.0-51.0); IMMATURE GRANULOCYTES 0.9 %; IMMATURE GRANULOCYTES ABSOLUTE 0.07 10/3/uL (0.0-0.11); LYMPHOCYTES 11.4 %; LYMPHOCYTES ABSOLUTE 0.92 10/3/uL (0.67-4.30); MEAN CORPUS HGB CONC 32.3 g/dL (32.0-36.0); MEAN CORPUSCULAR HEMOGLOB 28.1 pg (26.0-34.0); MEAN PLATELET VOLUME 9.4 fL (9.2-13.0); MONOCYTES 3.8 %; MONOCYTES ABSOLUTE 0.31 10/3/uL (0.21-1.20); NEUTROPHILS 83.7 %; NEUTROPHILS ABSOLUTE 6.74 10/3/uL (2.02-8.40); PLATELET COUNT 131 10/3/uL (150-400); RBC DISTRIBUTION WIDTH 19.1 % (12.0-16.0); RED CELL COUNT 2.85 10/6/uL (4.7-6.1); WHITE BLOOD CELLS 8.1 10/3/uL (4.5-10.5)
[2016-11-18 09:38] LABS: MANUAL DIFF NO %
[2016-11-18 09:45] LABS: ALBUMIN 2.5 G/DL (3.5-5.0); BUN (BLOOD UREA NITROGEN) 33 MG/DL (6-23); CHLORIDE, SERUM 105 MMOL/L (96-112); CO2 (CARBON DIOXIDE) 26 MMOL/L (24-34); GFR AFRICAN AMERICAN 21 ML/MIN (>=60); GFR NON AFRICAN AMERICAN 18 ML/MIN (>=60); GLUCOSE, SERUM 105 MG/DL (60-99); POTASSIUM, SERUM 3.6 MMOL/L (3.5-5.3); SODIUM, SERUM 141 MMOL/L (135-148)
[2016-11-18 09:46] LABS: PHOSPHORUS, SERUM 2.2 MG/DL (2.5-4.5)
[2016-11-18 09:47] LABS: CREATININE 3.43 MG/DL (0.70-1.30)
[2016-11-19 07:18] LABS: BASOPHILS 0 %; EOSINOPHILS ABSOLUTE 0.06 10/3/uL (0.0-0.53); HEMATOCRIT 26.7 % (40.0-51.0); HEMOGLOBIN 8.5 g/dL (13.6-17.8); IMMATURE GRANULOCYTES 0.9 %; IMMATURE GRANULOCYTES ABSOLUTE 0.05 10/3/uL (0.0-0.11); LYMPHOCYTES 16.3 %; LYMPHOCYTES ABSOLUTE 0.95 10/3/uL (0.67-4.30); MANUAL DIFF NO %; MEAN CORPUS HGB CONC 31.8 g/dL (32.0-36.0); MEAN CORPUSCULAR HEMOGLOB 28.1 pg (26.0-34.0); MEAN CORPUSCULAR VOLUME 88.1 fL (80-100); MEAN PLATELET VOLUME 10.3 fL (9.2-13.0); MONOCYTES 6.8 %; NEUTROPHILS ABSOLUTE 4.38 10/3/uL (2.02-8.40); PLATELET COUNT 141 10/3/uL (150-400); RBC DISTRIBUTION WIDTH 19.3 % (12.0-16.0); RED CELL COUNT 3.03 10/6/uL (4.7-6.1); WHITE BLOOD CELLS 5.8 10/3/uL (4.5-10.5)
[2016-11-19 07:45] LABS: ALBUMIN 2.6 G/DL (3.5-5.0); BUN (BLOOD UREA NITROGEN) 39 MG/DL (6-23); CALCIUM, SERUM 8.5 MG/DL (8.5-10.4); CHLORIDE, SERUM 105 MMOL/L (96-112); CO2 (CARBON DIOXIDE) 23 MMOL/L (24-34); CREATININE 4.19 MG/DL (0.70-1.30); GFR AFRICAN AMERICAN 17 ML/MIN (>=60); GFR NON AFRICAN AMERICAN 14 ML/MIN (>=60); GLUCOSE, SERUM 61 MG/DL (60-99); PHOSPHORUS, SERUM 2.2 MG/DL (2.5-4.5); SODIUM, SERUM 140 MMOL/L (135-148)
[2016-11-19 07:46] LABS: POTASSIUM, SERUM 4.5 MMOL/L (3.5-5.3)
== END 2016-11-19 10:55 | DRG 207 ==
LOC: ER 13:07 → CCU 13:11 → 5NO 11-12 14:16 → 6NO 11-13 14:00
PROVIDERS: Emergency Medicine; Internal Medicine; Internal Medicine Critical Care Medicine; Internal Medicine Nephrology; Registered Nurse
PROC: 06HM33Z Insertion of Infusion Device into Right Femoral Vein, Percutaneous Approach (ICD-10-PCS; principal; 2016-10-27)
PROC: B54BZZA Ultrasonography of Right Lower Extremity Veins, Guidance (ICD-10-PCS; 2016-10-27)
PROC: 5A1955Z Respiratory Ventilation, Greater than 96 Consecutive Hours (ICD-10-PCS; 2016-10-27)
PROC: 5A1D60Z (ICD-10-PCS; 2016-10-27)
PROC: 06H033Z Insertion of Infusion Device into Inferior Vena Cava, Percutaneous Approach (ICD-10-PCS; 2016-10-27)
PROC: B549ZZA Ultrasonography of Inferior Vena Cava, Guidance (ICD-10-PCS; 2016-10-27)
PROC: 30233K1 Transfusion of Nonautologous Frozen Plasma into Peripheral Vein, Percutaneous Approach (ICD-10-PCS; 2016-10-27)
PROC: 0BH18EZ Insertion of Endotracheal Airway into Trachea, Via Natural or Artificial Opening Endoscopic (ICD-10-PCS; 2016-10-27)
PROC: 30233N1 Transfusion of Nonautologous Red Blood Cells into Peripheral Vein, Percutaneous Approach (ICD-10-PCS; 2016-10-27)
DX: J96.01 Acute respiratory failure with hypoxia (principal); N17.0 Acute kidney failure with tubular necrosis; R57.1 Hypovolemic shock; G93.41 Metabolic encephalopathy; I13.2 Hypertensive heart and chronic kidney disease with heart failure and with stage 5 chronic kidney disease, or end stage renal disease; D68.32 Hemorrhagic disorder due to extrinsic circulating anticoagulants; K92.2 Gastrointestinal hemorrhage, unspecified; N18.6 End stage renal disease; I50.22 Chronic systolic (congestive) heart failure; D62 Acute posthemorrhagic anemia; Z68.42 Body mass index [BMI] 45.0-49.9, adult; D69.6 Thrombocytopenia, unspecified; I25.5 Ischemic cardiomyopathy; M10.9 Gout, unspecified; G47.33 Obstructive sleep apnea (adult) (pediatric); E66.09 Other obesity due to excess calories; E87.5 Hyperkalemia; T45.515A Adverse effect of anticoagulants, initial encounter; I48.2 Chronic atrial fibrillation; E11.22 Type 2 diabetes mellitus with diabetic chronic kidney disease; D64.9 Anemia, unspecified; I25.10 Atherosclerotic heart disease of native coronary artery without angina pectoris; B96.89 Other specified bacterial agents as the cause of diseases classified elsewhere; K63.5 Polyp of colon; E83.39 Other disorders of phosphorus metabolism; E11.649 Type 2 diabetes mellitus with hypoglycemia without coma; E66.01 Morbid (severe) obesity due to excess calories; Z79.4 Long term (current) use of insulin; Z95.810 Presence of automatic (implantable) cardiac defibrillator; Z79.01 Long term (current) use of anticoagulants
CPT/HCPCS: 31720; 36415; 36430; 36558; 36569; 36600; 71010; 74000; 76700; 76937; 77001; 80048; 80053; 80069; 80074; 80076; 80162; 80202; 82330; 82533; 82805; 82962; 83605; 83735; 83880; 84100; 84132; 84145; 84300; 84484; 85025; 85610; 85730; 86850; 86900; 86901; 86920; 87070; 87077; 87186; 87205; 87389; 87493; 87493-59; 87641; 92610-GN; 93005; 94002; 94003; 94640; 94660; 94770; 97110-GO; 97110-GP; 97162-GP; 97166-GO; 97530-GP; 99291; A9270-GY; C1750; C1751; C1894; C9113; G0257; J0610; J0692; J1720; J2250; J2405; J2543; J2930; J3010; J3370; J3430; P9016; P9047; P9059

== ENCOUNTER 2016-12-16 14:08 | Inpatient (IN) | payer OTHER ==
--- NOTE | ~2016-12-16 | CN ---
Consultation Report [facility] [address] [facility] [place]. [address] NAME: MIRIAM ACUÑA : 57 STATUS : ADM IN [facility]#: [id number] AGE: 61 ADM/REG DATE : 12/16/16 MR#: [id number] REPORT SERV DATE: 12/17/16 DICTATED BY: LISE OBREGON DATE: 12/16/16 REPORT STATUS : Draft TRANSCRIBED BY: MODL DATE: 12/16/16 CRITICAL CARE CONSULT DATE OF CONSULTATION: 12/16/2016 REASON FOR ADMISSION: Altered mental status, hypotension. REASON FOR CONSULTATION: Shock, acute hypercapnic respiratory failure. CHIEF COMPLAINT: Unable to obtain due to the patient's current medical encephalopathy. HISTORY OF PRESENT ILLNESS: Mr. Acuña is a 61-year-old gentleman with a past medical history of ischemic cardiomyopathy, biventricular pacemaker, GI bleed, end-stage renal disease. He was recently admitted in October for almost a month long admission. He had a prolonged hospitalization at that moment in time. He had gout, atrial fibrillation, diabetes, acute hypoxic respiratory failure, hypovolemic shock, encephalopathy, and thrombocytopenia and hyperbilirubinemia at the last visit. The patient was noted to have low blood pressures. On admission to the emergency room today, his Levophed requirements for 10, currently it is at 38. He is getting antibiotics. He was noted to have an elevated pCO2. The patient was seen in the emergency room, however, he was getting a PICC line done at the time. We placed him on BiPAP therapy, currently the patient has been examined in the intensive care unit and has been on BiPAP therapy for some time now, still very encephalopathic. We gave him 0.4 mg of Narcan, that did seem to allow him to be responsive to verbal stimuli as he was only responsive to painful stimuli prior. It is unclear whether this is going to be a prolonged improvement or not. Otherwise, no further complaints from the patient. PAST MEDICAL HISTORY: Ischemic cardiomyopathy, chronic atrial fibrillation, diabetes, end- stage renal disease, chronic systolic heart failure, gout, recent history of encephalopathy, infection, prolonged hospitalization. HOME MEDICATIONS: Allopurinol, amiodarone, Eliquis, Brovana, Pulmicort, Coreg, digoxin, Neurontin, insulin, Tamiflu, Protonix, Florastor, Carafate, Ultram, arthritis medication. ALLERGIES: NO KNOWN DRUG ALLERGIES. FAMILY HISTORY: Other family members with heart disease. SOCIAL HISTORY: The patient currently resides in the rehab facility. No current alcohol or illicit drug use. Unclear whether he was given anything. REVIEW OF SYSTEMS: All pertinent review of systems is not able to be obtained due to the patient's current medical encephalopathy. Consultation Report [address] [place]. [address] NAME: MIRIAM ACUÑA : 57 STATUS : ADM IN [facility]#: [id number] AGE: 61 ADM/REG DATE : 12/16/16 MR#: [id number] REPORT SERV DATE: 12/17/16 DICTATED BY: LISE OBREGON DATE: 12/16/16 REPORT STATUS : Draft TRANSCRIBED BY: VALE DATE: 12/16/16 PHYSICAL EXAMINATION: VITAL SIGNS: Temperature 98, pulse 93, respirations 15, currently on BiPAP therapy with an oxygen saturation of 97% and FiO2 of 35. HEENT: PERRLA. No meningeal signs noted. No cervical lymphadenopathy. PULMONARY: Anteriorly and laterally, the patient has no wheezing or crackles. CARDIAC: Regular rate. No murmurs. ABDOMEN: Abdomen is soft, nontender, nondistended. EXTREMITIES: Minimal lower extremity edema. Good capillary refill. Pulses noted. Lukewarm extremity. NEUROLOGIC: The patient is clearly encephalopathic, as noted above. He is able to move his upper extremities bilaterally and lower extremity on pain. LABORATORY EXAMINATION: No leukocytosis, hemoglobin 10.5, procalcitonin 0.62, elevated BUN and creatinine with a lactate of 1.2. Arterial blood gas shows a pH of 7.3, pCO2 of 55, pO2 of 183. Urine shows no significant white blood cell count. IMAGING DATA: Chest x-ray shows bilateral small effusions with cardiomegaly. ASSESSMENT AND PLAN: Mr. Acuña is a 61-year-old gentleman with a past medical history noted above, who presents to the intensive care unit. Currently in encephalopathic state, acute hypercapnic respiratory failure, and a significant shock. 1. Acute encephalopathy: Unclear of the etiology, the patient did seem to respond to Narcan, urine drug screen has been ordered, ammonia is being checked by the primary team. We will follow these results. The patient is currently on BiPAP therapy and we will obtain another arterial blood gas. Hopefully, the patient will have improvement in his medical status here shortly, unclear whether the patient got any narcotics at the rehab facility. Upon review of the medical list, the only narcotic medication is Ultram as needed. Another medicine that can give him encephalopathy is gabapentin, however, he is only on 300 mg twice daily. Usually, you have myoclonus with that as far as if that was toxic. 2. Shock: Unclear of the etiology. At this moment in time, we will check a BNP and troponin along with an EKG. Bedside echocardiogram was done by myself, the patient had what looked to be in EF of around 40%, no significant ventricular dilatation was noted, no findings of pulmonary hypertension, and no cardiac tamponade. We will check a TSH and cortisol. 3. Acute hypercapnic respiratory failure: The patient is currently on BiPAP therapy, ABG is currently being checked. OTHER DIAGNOSES: For which the primary team is following, end-stage renal disease, gout, diabetes, chronic obstructive pulmonary disease, history of gastrointestinal bleed, atrial fibrillation. CRITICAL CARE TIME: 45 minutes. This is in addition to any procedures that was done, this is time at the bedside and at the chart conducting a medical review. Consultation Report [address] [address] NAME: MIRIAM ACUÑA : 57 STATUS : ADM IN [facility]#: [id number] AGE: 61 ADM/REG DATE : 12/16/16 MR#: [id number] REPORT SERV DATE: 12/17/16 DICTATED BY: LISE OBREGON DATE: 12/16/16 REPORT STATUS : Draft TRANSCRIBED BY: VALE DATE: 12/16/16 HFQ/VALE Lise Obregon MD / [id number] CC: Rafael Estevez M.D.
--- NOTE | ~2016-12-16 | DS ---
Discharge Summary [facility] [address] [facility] [place]. [address] NAME: MIRIAM ACUÑA : 57 STATUS : DIS IN PAT#: [id number] AGE: 61 ADM/REG DATE : 12/16/16 MR#: [id number] REPORT SERV DATE: 01/11/17 DICTATED BY: LISA SWANN JR DATE: 01/10/17 REPORT STATUS : Draft TRANSCRIBED BY: VALE DATE: 01/10/17 Data Collection from hospitalization DISCHARGE DIAGNOSES: 1. End of life/failure to thrive. 2. Cardiomyopathy. 3. End-stage renal disease. 4. Intractable diarrhea. 5. Intractable hypotension. 6. Anemia-multifactorial. 7. Type 2 diabetes. 8. Gouty arthritis. 9. Chronic atrial fibrillation. 10.Gout. 11.Chronic systolic heart failure. 12.Chronic atrial fibrillation. CONSULTATIONS: Dr. Floyd Queen and Dr. Lise Obregon. PROCEDURES: 1. Arterial line placement, 12/17/2016. 2. Gallbladder ultrasound, 12/19/2016. 3. CT scan of the abdomen and pelvis with contrast, 12/26/2016. MEDICATIONS: As per hospice. CONDITION ON DISCHARGE: Stable. DISPOSITION: The patient was discharged to [facility] to be followed by [facility]. HOSPITAL COURSE: This is a 61-year-old man who had recently initiated hemodialysis in October of 2016. He was dialyzing as an outpatient at the [facility] on Mondays, Wednesdays, and Fridays. He did not go to dialysis on the day of this admission. He was brought to the emergency room unresponsive with an initial systolic blood pressure of 88. He was given IV fluids, with subsequent fall in his systolic blood pressure. His blood pressure went into the 60s. He was subsequently placed on Levophed. He was still unresponsive and would only arouse with significant stimulation. He was nonverbal. He was admitted to the hospital at this time for further evaluation and treatment. Upon admission, he was felt to have shock - Possibly cardiogenic - Unlikely sepsis. He does have end-stage renal disease and ischemic cardiomyopathy with biventricular pacemaker. He has chronic atrial fibrillation and is on Eliquis. Cultures were obtained. Antibiotics were going to begin. An echocardiogram was requested. We were going to consider BiPAP. The patient was seen by Dr. Lise bOregon regarding altered mental status and hypotension. He had an elevated pCO2, a PICC line was being placed. He was placed on BiPAP therapy. He was still very encephalopathic, he received Narcan. This did seem to allow him to be responsive to verbal stimuli as he was only responsive to painful stimuli previously. The Discharge Summary [place] [address] [place]. [address] NAME: MIRIAM ACUÑA : 57 STATUS : DIS IN PAT#: [id number] AGE: 61 ADM/REG DATE : 12/16/16 MR#: [id number] REPORT SERV DATE: 01/11/17 DICTATED BY: LISA SWANN JR DATE: 01/10/17 REPORT STATUS : Draft TRANSCRIBED BY: VALE DATE: 01/10/17 acute encephalopathy was of unclear etiology. Urine drug screen was ordered, ammonia was being checked. Shock was also of unclear etiology. BNP and troponin were going to be checked as well as an EKG. He does have acute hypercapnic respiratory failure. He was currently on BiPAP therapy. ABG was being checked currently. The following day, he was on BiPAP and Levophed. He had 2+ edema. CRRT was being provided. Urine was positive for cannabinoids. Sliding scale insulin was continued. We were going to check free T4. Echocardiogram was obtained. Dr. Rohith Ascencio placed an arterial line. On 12/18/2016, CRRT was continued. He remained on BiPAP and Levophed as well as vasopressin. His responsiveness was minimal. He had 1 to 2+ edema. Speech/Language Pathology performed a bedside swallow study. The next day, his T-max was 100.8. He had been on BiPAP overnight. He was going to be given daily breaks off BiPAP. He was felt to have had digoxin toxicity. Digoxin had decreased to 3.6. He was awake and responsive on nasal cannula. Citrate was discontinued. Heparin anticoagulation was being provided. He was trying to eat some. His shock and hypotension were persistent, but improved. HIT study was going to be checked. Platelet count had decreased. Dialysate was adjusted. Ultrafiltration was increased. On 12/22/2016, he had some confusion overnight. He refused BiPAP. Digoxin level was 2.1. Lactate was 2.7. Hemoglobin A1c was 5.5. CRRT continued. Albumin was stopped and trial of Sandostatin was being considered. Xifaxan was given. Liver function tests were elevated. It was felt that Palliative Care involvement may be helpful. HIT study was negative. On 12/24, the patient was seen by Dr. Floyd Queen. The patient had multi-system compromise and refractory hypotension. It was felt that he would be unable to tolerate conventional dialysis. The patient has cardiac, GI, and significant renal issues, now with refractory hypotension in the setting of underlying nonischemic cardiomyopathy. It was felt that we would have to seriously contemplate whether or not there was an occult malignancy problem which had yet been discovered. They suggested certainly continuing our efforts to get him off his blood pressure medication and back on the conventional dialysis if possible. It was felt that he should undergo a CT scan of the abdomen and pelvis. They felt that if the patient were to decline given his current level of debility and the previous 3 to 4 months of medical problems that he had, he did not know that CPR or ventilatory support would have much of a role in his care. He was going to began a conversation with the patient about this, and see exactly how much help he was capable of giving us. Gallbladder ultrasound had been performed. He had ongoing diarrhea. Midodrine was continued. On 12/26/2016, CT scan of the abdomen and pelvis with contrast was performed. He does have trace edema. Antibiotics were going to be held secondary to diarrhea. He was intermittently allowing BiPAP to be used. There had been response to dobutamine overnight. Probiotics were going to be provided. He was in no respiratory distress at this time. He had no complaints of shortness of breath. The patient did not want intervention that would prevent him from going home. The patient agreed to a hospice interview. He had no new issues. A referral was made to [facility], and [facility] liaison met with the patient. Hospice services and philosophy were discussed. On 12/30/2016, the patient was agreeable to hospice care. The patient was in agreement [facility] with [facility] care. Discharge planning continued. The patient was in agreement for comfort care. On 01/01/2017, discharge instructions were given. Due to his stable condition, he was discharged to [facility] to be followed by [facility] [address] [place]. [address] NAME: MIRIAM ACUÑA : 57 STATUS : DIS IN PAT#: [id number] AGE: 61 ADM/REG DATE : 12/16/16 MR#: [id number] REPORT SERV DATE: 01/11/17 DICTATED BY: LISA SWANN JR DATE: 01/10/17 REPORT STATUS : Draft TRANSCRIBED BY: MODL DATE: 01/10/17 Yu with the above-stated instructions. Information collected by: Minna Wright I submit the above information as my discharge summary. TG/MODL Lisa Swann Jr, M.D. / [id number] CC: Floyd Queen M.D. [facility]
--- NOTE | ~2016-12-16 | OP ---
Record Of Operation [facility] [address] [place]. [address] NAME: MIRIAM ACUÑA : 57 STATUS : ADM IN PAT#: [id number] AGE: 61 ADM/REG DATE : 12/16/16 MR#: [id number] REPORT SERV DATE: 12/17/16 DICTATED BY: SARWAT ASCENCIO DATE: 12/17/16 REPORT STATUS : Draft TRANSCRIBED BY: MODHemant DATE: 12/17/16 DATE OF PROCEDURE: 12/17/2016 TITLE OF PROCEDURE: Arterial line placement. INDICATION: Shock and hemodynamic monitoring. PROCEDURE NOTE: Time-out was completed verifying the correct patient and procedure. Both radial arteries as well as femoral arteries were assessed for the best site for arterial catheter placement. No pulses were able to be manually palpated by me at any of the four sites. The only artery that was well visualized on ultrasound by me was his right femoral artery, though it was small and posterior to his femoral vein, but this was the best site for catheter placement. Once the site was selected, the right groin was prepped and draped in a sterile fashion and 1% lidocaine was used to anesthetize the area. An Arrow arterial line was attempted to be introduced into the right femoral artery under ultrasound guidance. However, on the first attempt, arterial blood was returned, but the guidewire got kinked and the attempt had to be aborted. Then, on the second try, blood return was obtained, but the actual catheter got kinked on insertion, and so that attempt had to be aborted. Finally, on the third try, venous blood likely was obtained, the catheter was inserted over the guidewire, but a venous waveform was noted on the monitor, and so this attempt was aborted as well. Arterial line was unable to be placed and we will continue to monitor his blood pressure via cuffs. I was not present for the entire procedure. There were no complications. The patient tolerated the procedure well. LEONEL/VALE Sarwat Ascencio MD / [id number] CC: Rafael Estevez M.D.
--- NOTE | ~2016-12-16 | CN ---
Consultation Report [facility] [address] [place]. [address] NAME: MIRIAM ZHANG : 57 STATUS : ADM IN [facility]#: [id number] AGE: 61 ADM/REG DATE : 12/16/16 MR#: [id number] REPORT SERV DATE: 12/24/16 DICTATED BY: HOLLIE QUEEN DATE: 12/24/16 REPORT STATUS : Draft TRANSCRIBED BY: MODL DATE: 12/24/16 PALLIATIVE CARE CONSULTATION DATE OF CONSULTATION: 12/24/2016 Consult is from 1425 hours through 1525 hours. ALLERGIES: NONE KNOWN. REASON FOR CONSULTATION: Multisystem compromise and refractory hypotension in a 61-year-old gentleman. PRESENT ILLNESS: Mr. Zhang is a 61-year-old fellow who has a series of admissions here sometime in August into September. He had several episodes of GI bleeding, and has a history of systolic and diastolic heart failure with an ejection fraction of approximately 35%. He also has evidence of pulmonary hypertension on his echocardiogram. He had several episodes of acute kidney injury and one culminating in dialysis which commenced in November. [facility] and [facility]. He returned here on 12/16/2016 requiring extensive pressor support, and became dependent on [facility] for dialysis. He was unable to tolerate conventional dialysis. We have been asked to see him regarding his ongoing management and care. PAST MEDICAL HISTORY: Largely distilled from the records. The patient is somewhat vague in some of his answers. There is some comment regarding compliance issues with those medications and fluid restrictions. He has experienced significant weight loss. He carries a diagnosis of type 2 diabetes, although his hemoglobin A1cs are not impressive. He was on hemodialysis in beginning in October when he was transferred to the prison. He returned here with altered mental status and evidence of circulatory shock which did not respond to fluids initially. He has a biventricular pacemaker and a history of gouty arthritis. FAMILY HISTORY: Remarkable for a brother who evidently of an asthma attack some 20 years ago. This is relevant as the patient's father reports he had to remove his son from life support measures and does not really wish to be in that position again. He is hopeful the patient can assist us with decision making going forward. SOCIAL HISTORY: He is a remote smoker. Questionable substance abuse. The patient currently denies it except perhaps in high school. He is currently unemployed. His dad is a contact. He is an 88-year-old gentleman celebrating his birthday today. There is a report that the patient has a 12-year-old daughter and meant this being raised by a sister. There is some contact there. REVIEW OF SYSTEMS: The system review is unable to be obtained secondary to the patient's inability to really provide much in the way of additional information. He has extensive laboratory testing over Consultation Report [address] [place]. [address] NAME: MIRIAM ZHANG : 57 STATUS : ADM IN PAT#: [id number] AGE: 61 ADM/REG DATE : 12/16/16 MR#: [id number] REPORT SERV DATE: 12/24/16 DICTATED BY: HOLLIE QUEEN DATE: 12/24/16 REPORT STATUS : Draft TRANSCRIBED BY: VALE DATE: 12/24/16 the last three to four months. What is apparent currently is that he has thrombocytopenia in the 70,000 range. We note that his HIT profile is negative as is his HIV. His procalcitonin level is only 1.71. His LFTs are becoming elevated. His TSH was elevated at 18.5 and a recheck is pending. His maximum lactate level is 2.7. Currently, the patient is on norepinephrine and vasopressin and also taking oral Midrin. PHYSICAL EXAMINATION: VITAL SIGNS: Show a blood pressure of 96/68, pulse is 70, atrial fibrillation, with PACs controlled; respiratory rate of 18, not labored, and on room air, his pulse ox is 96%. He is currently off BiPAP but was on before. HEENT: The head is normocephalic. The eyes show equal reactive pupils. There is a suggestion of some scleral icterus. There is a fetid odor in the room overlying the patient. Dentition is fair, but I do not believe that this is the source of the smell. NECK: Without meningismus. His trachea is midline. There is a pacer in the left shoulder area. CHEST: Auscultation of his heart shows S1 and S2 to be present a relatively subtle grade 2/6 systolic murmur is heard radiating toward the axilla on the left side. LUNGS: Clear to auscultation. Percussion was not performed. There is no tactile fremitus or crepitus. ABDOMEN: Soft, nontender. Bowel sounds are present. It is slightly tympanic, but overall benign. EXTREMITIES: Show 2+ pitting edema to the mid thighs. W[employer]AM[employer]KER: The patient has somewhat labile cognition and function, but overall after his conversation with the wall attendant and listening in on some of that it appears that he is probably able to help make some of his medical decisions. NEUROLOGICAL: Exam was not performed. The patient denies pain at this time. He is smiling and his affect is actually relatively bright. IMPRESSION, PLAN, AND DISCUSSION: This is a 61-year-old fellow with cardiac, GI, and significant renal issues now with refractory hypotension in the setting of underlying nonischemic cardiomyopathy. Noting that in his records, he has had previous endoscopies performed which were at best incomplete, there is no radiological imaging of his abdomen in the form of a CAT scan that I found. There was also no lipase or amylase level. However, given his lack of pain, I am really not particularly impressed with that possibility. Unfortunately, one is going to have to seriously contemplate whether or not there is an occult malignancy problem which we yet to discover. I would certainly suggest continuing our efforts to get him off his blood pressure medications and back on the conventional dialysis if possible. Somewhere in that next evaluation, should be a CT scan of his abdomen and pelvis. I think that if he declines given his current level of debility and the previous three to four months of medical problems that he has had. I do not know that CPR or ventilatory support has much of a role in his care, and I will begin a conversation with him about that and see exactly how much help he is capable of giving us. Thank you for asking me to see Mr. Zhang. We will certainly continue to follow him. Consultation Report [place] [id number] [facility] [place]. [address] NAME: MIRIAM ZHANG : 57 STATUS : ADM IN [facility]#: [id number] AGE: 61 ADM/REG DATE : 12/16/16 MR#: [id number] REPORT SERV DATE: 12/24/16 DICTATED BY: HOLLIE QUEEN DATE: 12/24/16 REPORT STATUS : Draft TRANSCRIBED BY: VALE DATE: 12/24/16 ANTHONY/MODL Hollie Queen M.D. / [id number] CC: Rafael Estevez M.D. UNKNOWN
--- NOTE | ~2016-12-16 | ECH ---
Echocardiogram [place] [address] [place]. [address] NAME: MIRIAM ACUÑA : 57 STATUS : ADM IN PAT#: [id number] AGE: 61 ADM/REG DATE : 12/16/16 MR#: [id number] REPORT SERV DATE: 12/18/16 DICTATED BY: EVER ALLEN JR. DATE: 12/18/16 REPORT STATUS : Draft TRANSCRIBED BY: MODL DATE: 12/18/16 DATE OF ACQUISITION: 12/17/2016. INDICATIONS: CHF, history of cardiomyopathy, history of AICD, history of known cardiomyopathy, and history of prior atrial fibrillation. ROOM NUMBER: CCU bed 5. 2-D INTERPRETATION: M-mode and 2-dimensional echocardiography were performed. Definity contrast imaging agent was utilized to enhance endocardial borders. The left atrium was dilated at 6.1 cm compared to an aortic root diameter of 3.8 cm. The left ventricle was normal size measuring 4.9 cm in end-diastole and 4.1 cm in end-systole. Overall, there appeared to be moderate reduction of the left ventricular systolic function with ejection fraction estimated at 34% with global hypokinesis. The right ventricle and right atrium were moderately to severely enlarged. Pacemaker AICD lead was noted in the right ventricle. The aortic valve was trileaflet and sclerotic. The mitral valve appeared to be structurally normal. The remaining cardiac valves appeared to be structurally normal. No obvious pericardial effusion could be seen. A left pleural effusion was noted. No intracardiac mass otherwise could be seen. DOPPLER/COLOR FLOW: Conventional and Doppler color flow imaging were performed. Mitral inflow patterns were normal for the patient's age. There was an eccentric jet of mild to moderate mitral insufficiency. There was tricuspid insufficiency with peak right ventricular systolic pressure measuring 52 mmHg suggestive of moderate pulmonary hypertension. Peak gradient across the aortic valve measured 2 mmHg. There was no aortic insufficiency. CONCLUSION: MODERATE REDUCTION OF THE LEFT VENTRICULAR SYSTOLIC FUNCTION IN A PATIENT WITH KNOWN CARDIOMYOPATHY WITH KNOWN AICD WITH DIASTOLIC FUNCTION NORMAL FOR THE PATIENT'S AGE. AORTIC VALVE SCLEROSIS WITHOUT STENOSIS, MILD TO MODERATE MITRAL INSUFFICIENCY, TRICUSPID INSUFFICIENCY WITH MILD TO MODERATE PULMONARY HYPERTENSION. LEFT PLEURAL EFFUSION IS NOTED. /VALE Ever Allen Jr., M.D. / [id number] CC: Rafael Estevez M.D.
--- NOTE | ~2016-12-16 | HP ---
History And Physical [place] [place]. [address] NAME: MIRIAM ZHANG : 57 STATUS : ADM IN [facility]#: [id number] AGE: 61 ADM/REG DATE : 12/16/16 MR#: [id number] REPORT SERV DATE: 12/16/16 DICTATED BY: AMAYA CHARLES DATE: 12/16/16 REPORT STATUS : Draft TRANSCRIBED BY: MODHemant DATE: 12/16/16 DATE OF ADMISSION: 12/16/2016 INDICATION FOR HOSPITALIZATION: Shock, unresponsive state. HISTORY OF PRESENT ILLNESS: Mr. Zhang is a 61-year-old male who was recently initiated on hemodialysis in October of 2016. He was dialyzing as an outpatient at the [facility] unit Friday, Friday, and Friday, but did not go to dialysis today. He was brought to the emergency room unresponsive with an initial systolic blood pressure of 88 and was given IV fluids with subsequent fall in his systolic blood pressure, his blood pressure went to the 60s. He was subsequently placed on Levophed which is now at 35 mcg/minute. He is unresponsive and only arouses with significant stimulation. He is nonverbal. His labs reflect an ABG, pH of 7.3, pCO2 of 55, pO2 of 183. His WBC was 9.3, hemoglobin 10.5. Procalcitonin 0.62, potassium 4.7, creatinine 3.79, albumin 2.1. Lactate was 1.2 and urinalysis revealed negative leukocyte esterase, only occasional bacteria. Presently, he is unable to provide history. PHYSICAL EXAMINATION: VITAL SIGNS: BP 88/65 on Levophed, temp 97.8, respiratory rate , pulse 70. GENERAL: Unresponsive male. HEENT: Eyes no scleral icterus. Pupils react to light. Unable to assess extraocular movements. Mouth with moist mucous membranes. Throat no injection. Nares patent. No lesions. NECK: No thyromegaly, masses, or bruits. CHEST: With right IJ PermCath. Left pacemaker. LUNGS: Few late crackles laterally. No wheezing. CARDIAC: Regular rate and rhythm. No gallop or rub. A 6 systolic ejection murmur. ABDOMEN: Supple. Normoactive bowel sounds. Nontender. No hepatosplenomegaly. /RECTAL: Not performed. EXTREMITIES: 1 to 2+ edema. No calf tenderness. DERMIS: No rash. No skin lesions. MUSCULOSKELETAL: No deformity. NEUROLOGIC: Unable to assess due to lack of cooperation. REVIEW OF SYSTEMS: Unable to obtain. FAMILY HISTORY: Per chart. Positive for heart disease. No end-stage renal disease. SOCIAL HISTORY: Remote tobacco and drug use. No recent use per chart. He had been in [facility], unsure of his location prior to arrival. ALLERGY: Per chart, none known. MEDICATIONS: On presentation, allopurinol, amiodarone, Coreg, digoxin, Protonix, Florastor, History And Physical [address] [address] NAME: MIRIAM ZHANG : 57 STATUS : ADM IN [facility]#: [id number] AGE: 61 ADM/REG DATE : 12/16/16 MR#: [id number] REPORT SERV DATE: 12/16/16 DICTATED BY: AMAYA CHARLES DATE: 12/16/16 REPORT STATUS : Draft TRANSCRIBED BY: VALE DATE: 12/16/16 Carafate, Levemir insulin. IMPRESSION: 1. Shock, possible cardiogenic, unlikely sepsis. 2. End-stage renal disease, dialyzing at [facility] on Friday, Friday, and Friday. 3. Ischemic cardiomyopathy with biventricular pacemaker. History of ejection fraction of 35%. 4. Prior significant gastrointestinal bleed on heparin. 5. Chronic atrial fibrillation, on Eliquis. 6. Type 2 diabetes mellitus. 7. Chronic obstructive pulmonary disease. 8. Hypertension. 9. Chronic systolic congestive heart failure. 10.Gout. 11.Remote myocardial infarction. 12.History of ventilator support for hypoxemic respiratory failure. PLAN: 1. Critical care consult. 2. Cultures, antibiotics. 3. CRRT. 4. Echocardiogram. 5. Consider BiPAP. JUDIE/VALE aya Charles M.D. / [id number] CC: Amaya Charles M.D.
[2016-12-16 12:59] LABS: BE (BASE EXCESS) -0.8 MEQ/L (0 +/- 2.5); CARBOXYHEMOGLOBIN 2.2 % (0-3); DEVICE NC; HCO3 (ACTUAL BICARBONATE) 26.2 MEQ/L (23-27); INSTRUMENT SERIAL # 8087; METHEMOGLOBIN 0.3 % (0-3); O2 CONTENT 15.4 VOL% (18-24); OPERATOR ID 35188; PCO2 (CO2 TENSION) 55 MMHG (35-45); PO2 (O2 TENSION) 183 MMHG (79-93); SAMPLE Arterial
[2016-12-16 13:15] LABS: BASOPHILS 0.1 %; BASOPHILS ABSOLUTE 0.01 10/3/uL (0.0-0.16); EOSINOPHILS 0.8 %; EOSINOPHILS ABSOLUTE 0.07 10/3/uL (0.0-0.53); ER CBC TAT 0 Hrs 09 Mins; HEMATOCRIT 33.1 % (40.0-51.0); HEMOGLOBIN 10.5 g/dL (13.6-17.8); IMMATURE GRANULOCYTES 0.4 %; IMMATURE GRANULOCYTES ABSOLUTE 0.04 10/3/uL (0.0-0.11); LYMPHOCYTES 25.3 %; LYMPHOCYTES ABSOLUTE 2.36 10/3/uL (0.67-4.30); MANUAL DIFF NO %; MEAN CORPUS HGB CONC 31.7 g/dL (32.0-36.0); MEAN CORPUSCULAR HEMOGLOB 27.6 pg (26.0-34.0); MEAN CORPUSCULAR VOLUME 86.9 fL (80-100); MEAN PLATELET VOLUME 9.6 fL (9.2-13.0); MONOCYTES 17.1 %; MONOCYTES ABSOLUTE 1.59 10/3/uL (0.21-1.20); NEUTROPHILS 56.3 %; NEUTROPHILS ABSOLUTE 5.25 10/3/uL (2.02-8.40); NUCLEATED RED BLOOD CELLS 0.7 /100WBC (0-0); PLATELET COUNT 208 10/3/uL (150-400); RBC DISTRIBUTION WIDTH 20.5 % (12.0-16.0); RED CELL COUNT 3.81 10/6/uL (4.7-6.1); WHITE BLOOD CELLS 9.3 10/3/uL (4.5-10.5)
[2016-12-16 13:20] LABS: INTERNATIONAL NORMAL RATI 2.3 UNITS (-)
[2016-12-16 13:21] LABS: PARTIAL THROMBO TIME 57.4 SEC (22.5-37.2); PROTIME (NOT ORD) 25.3 SEC (12.0-14.5)
[2016-12-16 13:26] LABS: ALBUMIN 2.1 G/DL (3.5-5.0); CALCIUM, SERUM 8.3 MG/DL (8.5-10.4); CHLORIDE, SERUM 99 MMOL/L (96-112); CO2 (CARBON DIOXIDE) 28 MMOL/L (24-34); SGPT(ALT) 16 U/L (5-65); SODIUM, SERUM 138 MMOL/L (135-148); TOTAL PROTEIN 7.1 G/DL (6.0-8.5)
[2016-12-16 13:27] LABS: A/G RATIO 0.4 (0.7-1.9); ALKALINE PHOSPHATASE 130 U/L (45-117); BUN (BLOOD UREA NITROGEN) 28 MG/DL (6-23); CREATININE 3.79 MG/DL (0.70-1.30); GFR AFRICAN AMERICAN 19 ML/MIN (>=60); GFR NON AFRICAN AMERICAN 16 ML/MIN (>=60); GLUCOSE, SERUM 65 MG/DL (60-99); POTASSIUM, SERUM 4.7 MMOL/L (3.5-5.3)
[2016-12-16 13:28] LABS: LACTATE 1.2 MMOL/L (0.3-2.4); SGOT(AST) 33 U/L (5-40)
[2016-12-16 13:39] LABS: WBC (NOT ORDERED) (RFLEX) 0 (0-5)
[2016-12-16 14:10] LABS: ASCORBIC ACID (UR NOT ORDER) NEG (NEG); BILIRUBIN, URINE NEGATIVE (NEG); KETONE, URINE NEGATIVE (NEG); LEUKOCYTE ESTERASE(NOT OR NEG (NEG); NITRITE (URINE) NEG (NEG)
[2016-12-16 14:11] LABS: ER URINALYSIS TAT 0 Hrs 33 Mins
[2016-12-16] MEDS ORDERED: Z100 PO (14:19)
[2016-12-16] MEDS ORDERED: BROVANA15 MCG INH (14:19)
[2016-12-16] MEDS ORDERED: CORDARONE PO (14:19)
[2016-12-16] MEDS ORDERED: PULRESP.5 INH (14:20)
[2016-12-16] MEDS ORDERED: LAN125 PO (14:21)
[2016-12-16] MEDS ORDERED: ELIQUIS 2.5 MG2.5 MG PO (14:21)
[2016-12-16] MEDS ORDERED: COREG3 PO (14:21)
[2016-12-16] MEDS ORDERED: HUMALOGPEN SC (14:22)
[2016-12-16] MEDS ORDERED: NEUR300 PO (14:22)
[2016-12-16] MEDS ORDERED: FLORASTOR250 MG PO (14:22)
[2016-12-16] MEDS ORDERED: TAMIFLU30 MG PO (14:23)
[2016-12-16] MEDS ORDERED: PROTONIX PO (14:23)
[2016-12-16] MEDS ORDERED: SUCR PO (14:24)
[2016-12-16] MEDS ORDERED: ARTHRITIS PAIN TOP (14:25)
[2016-12-16] MEDS ORDERED: ULTRAM50 PO (14:26)
[2016-12-16 14:36] LABS: PROCALCITONIN 0.62 ng/mL (<0.5)
[2016-12-16 20:24] LABS: ACETAMINOPHEN LEVEL (TYLENOL) < 2.0 MCG/ML (10.0-20.0); ALCOHOL < 10 MG/DL (0); SALICYLATE < 1.7 MG/DL (-); TROPONIN I 0.27 NG/ML (<0.05)
[2016-12-16 21:08] LABS: ALLENS TEST Pos; BE (BASE EXCESS) -4.3 MEQ/L (0 +/- 2.5); BIPAP 14/5 cm.H2O; CARBOXYHEMOGLOBIN 0.9 % (0-3); HCO3 (ACTUAL BICARBONATE) 23.1 MEQ/L (23-27); HEMOBLOGIN CONTENT 11.6 G/DL (14-18); INSTRUMENT SERIAL # 35151; METHEMOGLOBIN 0.5 % (0-3); O2 CONTENT 15.7 VOL% (18-24); OPERATOR ID 35190; PCO2 (CO2 TENSION) 53 MMHG (35-45); PO2 (O2 TENSION) 99 MMHG (79-93); SAMPLE Arterial; pH 7.26 (7.37-7.43)
[2016-12-16 22:06] LABS: AMPHETAMINES (NOT ORD) NEG (NEG); BARBITURATES (NOT ORDERED NEG (NEG); BENZODIAZEPINES (NOT ORD) NEG (NEG); CANNABINOIDS (THC) POS (NEG); COCAINE (NOT ORDERED) NEG (NEG); OPIATES NEG (NEG); PHENCYCLIDINE(PCP) NEG (NEG); TRICYCLICS NEG (NEG)
[2016-12-17 00:53] LABS: ALLENS TEST Pos; BE (BASE EXCESS) -6.1 MEQ/L (0 +/- 2.5); BIPAP 14/5 cm.H2O; CARBOXYHEMOGLOBIN 0.8 % (0-3); HCO3 (ACTUAL BICARBONATE) 20.6 MEQ/L (23-27); HEMOBLOGIN CONTENT 11.9 G/DL (14-18); INSTRUMENT SERIAL # 35151; METHEMOGLOBIN 0.5 % (0-3); O2 CONTENT 16.2 VOL% (18-24); OPERATOR ID 35190; PCO2 (CO2 TENSION) 45 MMHG (35-45); PO2 (O2 TENSION) 104 MMHG (79-93); SAMPLE Arterial; pH 7.28 (7.37-7.43)
[2016-12-17 05:15] LABS: BASOPHILS 0.2 %; BASOPHILS ABSOLUTE 0.02 10/3/uL (0.0-0.16); EOSINOPHILS 0.3 %; EOSINOPHILS ABSOLUTE 0.03 10/3/uL (0.0-0.53); HEMATOCRIT 35.8 % (40.0-51.0); HEMOGLOBIN 11.1 g/dL (13.6-17.8); IMMATURE GRANULOCYTES 0.5 %; IMMATURE GRANULOCYTES ABSOLUTE 0.06 10/3/uL (0.0-0.11); LYMPHOCYTES 17.8 %; LYMPHOCYTES ABSOLUTE 2.04 10/3/uL (0.67-4.30); MEAN CORPUSCULAR HEMOGLOB 27.7 pg (26.0-34.0); MEAN CORPUSCULAR VOLUME 89.3 fL (80-100); MEAN PLATELET VOLUME 9.8 fL (9.2-13.0); MONOCYTES 18.6 %; MONOCYTES ABSOLUTE 2.14 10/3/uL (0.21-1.20); NEUTROPHILS 62.6 %; NUCLEATED RED BLOOD CELLS 0.7 /100WBC (0-0); PLATELET COUNT 231 10/3/uL (150-400); RBC DISTRIBUTION WIDTH 20.5 % (12.0-16.0); RED CELL COUNT 4.01 10/6/uL (4.7-6.1); WHITE BLOOD CELLS 11.5 10/3/uL (4.5-10.5)
[2016-12-17 05:17] LABS: ALBUMIN 2.4 G/DL (3.5-5.0); CALCIUM, SERUM 8.4 MG/DL (8.5-10.4); CHLORIDE, SERUM 98 MMOL/L (96-112); CREATININE 3.94 MG/DL (0.70-1.30); GFR AFRICAN AMERICAN 18 ML/MIN (>=60); GFR NON AFRICAN AMERICAN 16 ML/MIN (>=60); POTASSIUM, SERUM 4.4 MMOL/L (3.5-5.3); SODIUM, SERUM 136 MMOL/L (135-148)
[2016-12-17 05:20] LABS: BUN (BLOOD UREA NITROGEN) 32 MG/DL (6-23); CO2 (CARBON DIOXIDE) 23 MMOL/L (24-34); GLUCOSE, SERUM 189 MG/DL (60-99); MANUAL DIFF NO %; PHOSPHORUS, SERUM 3.7 MG/DL (2.5-4.5)
[2016-12-17 06:49] LABS: PROCALCITONIN 1.71 ng/mL (<0.5)
[2016-12-17 09:08] LABS: ALLENS TEST Pos; BE (BASE EXCESS) -5.3 MEQ/L (0 +/- 2.5); BIPAP 14/5 cm.H2O; CARBOXYHEMOGLOBIN 0.7 % (0-3); HCO3 (ACTUAL BICARBONATE) 22.2 MEQ/L (23-27); HEMOBLOGIN CONTENT 11.9 G/DL (14-18); INSTRUMENT SERIAL # 35151; METHEMOGLOBIN 0.6 % (0-3); O2 CONTENT 16.5 VOL% (18-24); PCO2 (CO2 TENSION) 52 MMHG (35-45); PO2 (O2 TENSION) 129 MMHG (79-93); SAMPLE Arterial; pH 7.25 (7.37-7.43)
[2016-12-17 09:33] LABS: A/G RATIO 0.5 (0.7-1.9); ALBUMIN 2.3 G/DL (3.5-5.0); BUN (BLOOD UREA NITROGEN) 34 MG/DL (6-23); CALCIUM, SERUM 8.3 MG/DL (8.5-10.4); CHLORIDE, SERUM 99 MMOL/L (96-112); CO2 (CARBON DIOXIDE) 27 MMOL/L (24-34); CREATININE 4.08 MG/DL (0.70-1.30); GFR AFRICAN AMERICAN 17 ML/MIN (>=60); GFR NON AFRICAN AMERICAN 15 ML/MIN (>=60); GLOBULIN 4.4 G/DL (2.5-4.1); POTASSIUM, SERUM 4.2 MMOL/L (3.5-5.3); SGOT(AST) 52 U/L (5-40); SGPT(ALT) 20 U/L (5-65); SODIUM, SERUM 136 MMOL/L (135-148); TOTAL BILIRUBIN 3.1 MG/DL (0-1.2); TOTAL PROTEIN 6.7 G/DL (6.0-8.5)
[2016-12-17 09:34] LABS: ALKALINE PHOSPHATASE 114 U/L (45-117); GLUCOSE, SERUM 113 MG/DL (60-99)
[2016-12-17 11:00] LABS: FREE T4 1.01 NG/DL (0.76-1.46)
[2016-12-17 12:47] LABS: DIGOXIN 7.4 NG/ML (0.8-2.0)
[2016-12-17 17:04] LABS: BASOPHILS 0.1 %; BASOPHILS ABSOLUTE 0.01 10/3/uL (0.0-0.16); EOSINOPHILS 0.9 %; EOSINOPHILS ABSOLUTE 0.07 10/3/uL (0.0-0.53); HEMATOCRIT 35.1 % (40.0-51.0); HEMOGLOBIN 10.9 g/dL (13.6-17.8); IMMATURE GRANULOCYTES 0.5 %; IMMATURE GRANULOCYTES ABSOLUTE 0.04 10/3/uL (0.0-0.11); LYMPHOCYTES 14.2 %; LYMPHOCYTES ABSOLUTE 1.15 10/3/uL (0.67-4.30); MEAN CORPUS HGB CONC 31.1 g/dL (32.0-36.0); MEAN CORPUSCULAR HEMOGLOB 27.5 pg (26.0-34.0); MEAN CORPUSCULAR VOLUME 88.6 fL (80-100); MEAN PLATELET VOLUME 9.9 fL (9.2-13.0); MONOCYTES ABSOLUTE 1.29 10/3/uL (0.21-1.20); NEUTROPHILS 68.3 %; NEUTROPHILS ABSOLUTE 5.52 10/3/uL (2.02-8.40); PLATELET COUNT 205 10/3/uL (150-400); RBC DISTRIBUTION WIDTH 20.4 % (12.0-16.0); RED CELL COUNT 3.96 10/6/uL (4.7-6.1); WHITE BLOOD CELLS 8.1 10/3/uL (4.5-10.5)
[2016-12-17 17:05] LABS: MANUAL DIFF NO %
[2016-12-17 17:10] LABS: CHLORIDE, SERUM 103 MMOL/L (96-112); CO2 (CARBON DIOXIDE) 24 MMOL/L (24-34); POTASSIUM, SERUM 4.1 MMOL/L (3.5-5.3); SODIUM, SERUM 137 MMOL/L (135-148)
[2016-12-17 17:12] LABS: BUN (BLOOD UREA NITROGEN) 24 MG/DL (6-23); CALCIUM, SERUM 7.1 MG/DL (8.5-10.4); CREATININE 2.88 MG/DL (0.70-1.30); GFR AFRICAN AMERICAN 26 ML/MIN (>=60); GFR NON AFRICAN AMERICAN 23 ML/MIN (>=60); GLUCOSE, SERUM 145 MG/DL (60-99); PHOSPHORUS, SERUM 2.6 MG/DL (2.5-4.5)
[2016-12-17 23:29] LABS: BASOPHILS 0.1 %; BASOPHILS ABSOLUTE 0.01 10/3/uL (0.0-0.16); EOSINOPHILS ABSOLUTE 0.09 10/3/uL (0.0-0.53); HEMATOCRIT 32.2 % (40.0-51.0); HEMOGLOBIN 10.2 g/dL (13.6-17.8); IMMATURE GRANULOCYTES 0.4 %; IMMATURE GRANULOCYTES ABSOLUTE 0.04 10/3/uL (0.0-0.11); LYMPHOCYTES 12.4 %; LYMPHOCYTES ABSOLUTE 1.13 10/3/uL (0.67-4.30); MEAN CORPUS HGB CONC 31.7 g/dL (32.0-36.0); MEAN CORPUSCULAR HEMOGLOB 27.8 pg (26.0-34.0); MEAN CORPUSCULAR VOLUME 87.7 fL (80-100); MEAN PLATELET VOLUME 9.1 fL (9.2-13.0); MONOCYTES 15.8 %; MONOCYTES ABSOLUTE 1.44 10/3/uL (0.21-1.20); NEUTROPHILS 70.3 %; NEUTROPHILS ABSOLUTE 6.39 10/3/uL (2.02-8.40); PLATELET COUNT 175 10/3/uL (150-400); RBC DISTRIBUTION WIDTH 20.3 % (12.0-16.0); RED CELL COUNT 3.67 10/6/uL (4.7-6.1); WHITE BLOOD CELLS 9.1 10/3/uL (4.5-10.5)
[2016-12-17 23:33] LABS: MANUAL DIFF NO %
[2016-12-17 23:41] LABS: CHLORIDE, SERUM 107 MMOL/L (96-112); CO2 (CARBON DIOXIDE) 24 MMOL/L (24-34); GFR AFRICAN AMERICAN 33 ML/MIN (>=60); GFR NON AFRICAN AMERICAN 28 ML/MIN (>=60); PHOSPHORUS, SERUM 2.2 MG/DL (2.5-4.5); POTASSIUM, SERUM 3.9 MMOL/L (3.5-5.3); SODIUM, SERUM 141 MMOL/L (135-148)
[2016-12-17 23:42] LABS: BUN (BLOOD UREA NITROGEN) 19 MG/DL (6-23); CALCIUM, SERUM 6.8 MG/DL (8.5-10.4); GLUCOSE, SERUM 82 MG/DL (60-99)
[2016-12-18 03:56] LABS: BE (BASE EXCESS) -8.7 MEQ/L (0 +/- 2.5); CARBOXYHEMOGLOBIN 0.5 % (0-3); HCO3 (ACTUAL BICARBONATE) 17.6 MEQ/L (23-27); HEMOBLOGIN CONTENT 11.5 G/DL (14-18); INSTRUMENT SERIAL # 35151; METHEMOGLOBIN 0.6 % (0-3); PCO2 (CO2 TENSION) 39 MMHG (35-45); PO2 (O2 TENSION) 136 MMHG (79-93); SAMPLE Arterial; pH 7.27 (7.37-7.43)
[2016-12-18 03:57] LABS: BIPAP 14/5 cm.H2O
[2016-12-18 05:50] LABS: BASOPHILS 0 %; EOSINOPHILS 0.4 %; EOSINOPHILS ABSOLUTE 0.04 10/3/uL (0.0-0.53); HEMATOCRIT 32.4 % (40.0-51.0); HEMOGLOBIN 10.1 g/dL (13.6-17.8); IMMATURE GRANULOCYTES 0.5 %; IMMATURE GRANULOCYTES ABSOLUTE 0.05 10/3/uL (0.0-0.11); LYMPHOCYTES 11.4 %; LYMPHOCYTES ABSOLUTE 1.14 10/3/uL (0.67-4.30); MEAN CORPUS HGB CONC 31.2 g/dL (32.0-36.0); MEAN CORPUSCULAR HEMOGLOB 27.3 pg (26.0-34.0); MEAN CORPUSCULAR VOLUME 87.6 fL (80-100); MEAN PLATELET VOLUME 9.3 fL (9.2-13.0); MONOCYTES 16.2 %; MONOCYTES ABSOLUTE 1.62 10/3/uL (0.21-1.20); NEUTROPHILS 71.5 %; NEUTROPHILS ABSOLUTE 7.16 10/3/uL (2.02-8.40); NUCLEATED RED BLOOD CELLS 0.8 /100WBC (0-0); PLATELET COUNT 178 10/3/uL (150-400); RBC DISTRIBUTION WIDTH 20.3 % (12.0-16.0)
[2016-12-18 05:53] LABS: MANUAL DIFF NO %
[2016-12-18 06:36] LABS: CALCIUM, SERUM 7.3 MG/DL (8.5-10.4); CHLORIDE, SERUM 107 MMOL/L (96-112); CO2 (CARBON DIOXIDE) 21 MMOL/L (24-34); PHOSPHORUS, SERUM 2.7 MG/DL (2.5-4.5); POTASSIUM, SERUM 3.8 MMOL/L (3.5-5.3); SODIUM, SERUM 139 MMOL/L (135-148)
[2016-12-18 06:37] LABS: BUN (BLOOD UREA NITROGEN) 15 MG/DL (6-23); CREATININE 1.88 MG/DL (0.70-1.30); DIGOXIN 4.1 NG/ML (0.8-2.0); GFR AFRICAN AMERICAN 44 ML/MIN (>=60); GFR NON AFRICAN AMERICAN 38 ML/MIN (>=60); GLUCOSE, SERUM 109 MG/DL (60-99)
[2016-12-18 10:56] LABS: BASOPHILS 0.1 %; BASOPHILS ABSOLUTE 0.01 10/3/uL (0.0-0.16); EOSINOPHILS 0.4 %; EOSINOPHILS ABSOLUTE 0.04 10/3/uL (0.0-0.53); HEMATOCRIT 32.5 % (40.0-51.0); HEMOGLOBIN 10.2 g/dL (13.6-17.8); IMMATURE GRANULOCYTES 0.3 %; IMMATURE GRANULOCYTES ABSOLUTE 0.03 10/3/uL (0.0-0.11); LYMPHOCYTES 13.3 %; LYMPHOCYTES ABSOLUTE 1.37 10/3/uL (0.67-4.30); MEAN CORPUS HGB CONC 31.4 g/dL (32.0-36.0); MEAN CORPUSCULAR HEMOGLOB 27.6 pg (26.0-34.0); MEAN CORPUSCULAR VOLUME 87.8 fL (80-100); MEAN PLATELET VOLUME 9.3 fL (9.2-13.0); MONOCYTES 18.5 %; MONOCYTES ABSOLUTE 1.91 10/3/uL (0.21-1.20); NEUTROPHILS 67.4 %; NEUTROPHILS ABSOLUTE 6.94 10/3/uL (2.02-8.40); NUCLEATED RED BLOOD CELLS 0.9 /100WBC (0-0); PLATELET COUNT 167 10/3/uL (150-400); RBC DISTRIBUTION WIDTH 20.3 % (12.0-16.0); WHITE BLOOD CELLS 10.3 10/3/uL (4.5-10.5)
[2016-12-18 10:57] LABS: MANUAL DIFF NO %
[2016-12-18 11:05] LABS: ALKALINE PHOSPHATASE 124 U/L (45-117); BUN (BLOOD UREA NITROGEN) 13 MG/DL (6-23); CALCIUM, SERUM 7.1 MG/DL (8.5-10.4); CHLORIDE, SERUM 105 MMOL/L (96-112); CO2 (CARBON DIOXIDE) 21 MMOL/L (24-34); CREATININE 1.72 MG/DL (0.70-1.30); DIRECT BILIRUBIN 2.3 MG/DL (0.0-0.4); GFR AFRICAN AMERICAN 49 ML/MIN (>=60); GFR NON AFRICAN AMERICAN 42 ML/MIN (>=60); GLUCOSE, SERUM 113 MG/DL (60-99); INDIRECT BILIRUBIN(NOT ORDER) 1.1 MG/DL (0.1-0.9); POTASSIUM, SERUM 3.9 MMOL/L (3.5-5.3); SGOT(AST) 47 U/L (5-40); SGPT(ALT) 26 U/L (5-65); SODIUM, SERUM 139 MMOL/L (135-148); TOTAL BILIRUBIN 3.4 MG/DL (0-1.2); TOTAL PROTEIN 6.8 G/DL (6.0-8.5)
[2016-12-18 11:06] LABS: ALBUMIN 2.8 G/DL (3.5-5.0)
[2016-12-18 13:25] LABS: ACETONE NEG
[2016-12-18 17:13] LABS: BUN (BLOOD UREA NITROGEN) 10 MG/DL (6-23); CALCIUM, SERUM 7.9 MG/DL (8.5-10.4); CHLORIDE, SERUM 105 MMOL/L (96-112); CO2 (CARBON DIOXIDE) 22 MMOL/L (24-34); CREATININE 1.48 MG/DL (0.70-1.30); GFR AFRICAN AMERICAN 59 ML/MIN (>=60); GFR NON AFRICAN AMERICAN 51 ML/MIN (>=60); GLUCOSE, SERUM 123 MG/DL (60-99); HEMATOCRIT 30.8 % (40.0-51.0); HEMOGLOBIN 9.7 g/dL (13.6-17.8); MEAN CORPUS HGB CONC 31.5 g/dL (32.0-36.0); MEAN CORPUSCULAR HEMOGLOB 27.6 pg (26.0-34.0); MEAN CORPUSCULAR VOLUME 87.5 fL (80-100); MEAN PLATELET VOLUME 9.6 fL (9.2-13.0); NUCLEATED RED BLOOD CELLS 1.4 /100WBC (0-0); PHOSPHORUS, SERUM 2.1 MG/DL (2.5-4.5); PLATELET COUNT 166 10/3/uL (150-400); RBC DISTRIBUTION WIDTH 20.7 % (12.0-16.0); RED CELL COUNT 3.52 10/6/uL (4.7-6.1); SODIUM, SERUM 139 MMOL/L (135-148); WHITE BLOOD CELLS 9.3 10/3/uL (4.5-10.5)
[2016-12-18 17:14] LABS: MANUAL DIFF YES %
[2016-12-18 18:14] LABS: LYMPHOCYTES 16 %; LYMPHOCYTES ABSOLUTE (CALC) 1.49 10/3/uL (0.67-4.30); MONOCYTES 15 %; NEUTROPHILS ABSOLUTE (CALC) 6.42 10/3/uL (2.02-8.40); SEGMENTED NEUTROPHIL (0) 69 %; TOTAL NUCLEATED CELLS 100
[2016-12-18 18:15] LABS: ACANTHOCYTES FEW (3-10/OIF); ANISOCYTOSIS 1+ (5-10/OIF) (0-5/OIF); HYPOCHROMIA 1+ (3-10/OIF) (0-2/OIF); PLATELET ESTIMATE ADQ (ADEQUATE); SCHISTOCYTES OCC (0-2/OIF); TEARDROP SHAPED RBCS OCC (0-2/OIF)
[2016-12-18 18:16] LABS: MACROCYTES 1+ (5-10/OIF) (0-5/OIF)
[2016-12-19 00:13] LABS: HEMATOCRIT 30.7 % (40.0-51.0); HEMOGLOBIN 9.8 g/dL (13.6-17.8); MEAN CORPUS HGB CONC 31.9 g/dL (32.0-36.0); MEAN CORPUSCULAR HEMOGLOB 27.9 pg (26.0-34.0); MEAN CORPUSCULAR VOLUME 87.5 fL (80-100); MEAN PLATELET VOLUME 9.5 fL (9.2-13.0); NUCLEATED RED BLOOD CELLS 1.5 /100WBC (0-0); PLATELET COUNT 148 10/3/uL (150-400); RBC DISTRIBUTION WIDTH 20.7 % (12.0-16.0); RED CELL COUNT 3.51 10/6/uL (4.7-6.1); WHITE BLOOD CELLS 8.5 10/3/uL (4.5-10.5)
[2016-12-19 00:14] LABS: MANUAL DIFF YES %
[2016-12-19 00:21] LABS: BUN (BLOOD UREA NITROGEN) 8 MG/DL (6-23); CALCIUM, SERUM 7.1 MG/DL (8.5-10.4); CHLORIDE, SERUM 102 MMOL/L (96-112); CO2 (CARBON DIOXIDE) 22 MMOL/L (24-34); CREATININE 1.26 MG/DL (0.70-1.30); GFR AFRICAN AMERICAN 71 ML/MIN (>=60); GFR NON AFRICAN AMERICAN 62 ML/MIN (>=60); POTASSIUM, SERUM 3.9 MMOL/L (3.5-5.3); SODIUM, SERUM 139 MMOL/L (135-148)
[2016-12-19 00:30] LABS: GLUCOSE, SERUM 79 MG/DL (60-99)
[2016-12-19 01:02] LABS: PHOSPHORUS, SERUM 2.4 MG/DL (2.5-4.5)
[2016-12-19 01:17] LABS: ACANTHOCYTES FEW (3-10/OIF); ANISOCYTOSIS 1+ (5-10/OIF) (0-5/OIF); LYMPHOCYTES 16 %; LYMPHOCYTES ABSOLUTE (CALC) 1.36 10/3/uL (0.67-4.30); MONOCYTES 18 %; MONOCYTES ABSOLUTE (CALC) 1.53 10/3/uL (0.21-1.20); NEUTROPHILS ABSOLUTE (CALC) 5.61 10/3/uL (2.02-8.40); PLATELET ESTIMATE SLT DEC (ADEQUATE); SEGMENTED NEUTROPHIL (0) 66 %; TOTAL NUCLEATED CELLS 100
[2016-12-19 01:18] LABS: HYPOCHROMIA 1+ (3-10/OIF) (0-2/OIF); TEARDROP SHAPED RBCS OCC (0-2/OIF)
[2016-12-19 03:38] LABS: ALLENS TEST Pos; BE (BASE EXCESS) -7.6 MEQ/L (0 +/- 2.5); BIPAP 14/5 cm.H2O; CARBOXYHEMOGLOBIN 0.4 % (0-3); HCO3 (ACTUAL BICARBONATE) 18.6 MEQ/L (23-27); HEMOBLOGIN CONTENT 10.6 G/DL (14-18); INSTRUMENT SERIAL # 35151; METHEMOGLOBIN 0.5 % (0-3); O2 CONTENT 14.7 VOL% (18-24); OPERATOR ID 23712; PCO2 (CO2 TENSION) 41 MMHG (35-45); PO2 (O2 TENSION) 115 MMHG (79-93); SAMPLE Arterial; pH 7.28 (7.37-7.43)
[2016-12-19 05:47] LABS: HEMATOCRIT 30.5 % (40.0-51.0); HEMOGLOBIN 9.6 g/dL (13.6-17.8); MEAN CORPUS HGB CONC 31.5 g/dL (32.0-36.0); MEAN CORPUSCULAR HEMOGLOB 27.6 pg (26.0-34.0); MEAN CORPUSCULAR VOLUME 87.6 fL (80-100); MEAN PLATELET VOLUME 9.3 fL (9.2-13.0); PLATELET COUNT 150 10/3/uL (150-400); RED CELL COUNT 3.48 10/6/uL (4.7-6.1); WHITE BLOOD CELLS 8.7 10/3/uL (4.5-10.5)
[2016-12-19 05:58] LABS: MANUAL DIFF YES %
[2016-12-19 06:05] LABS: ALBUMIN 2.8 G/DL (3.5-5.0); BUN (BLOOD UREA NITROGEN) 7 MG/DL (6-23); CALCIUM, SERUM 7.5 MG/DL (8.5-10.4); CHLORIDE, SERUM 101 MMOL/L (96-112); CO2 (CARBON DIOXIDE) 22 MMOL/L (24-34); CREATININE 1.15 MG/DL (0.70-1.30); GFR AFRICAN AMERICAN 80 ML/MIN (>=60); GFR NON AFRICAN AMERICAN 69 ML/MIN (>=60); SGPT(ALT) 25 U/L (5-65); SODIUM, SERUM 138 MMOL/L (135-148); TOTAL PROTEIN 6.3 G/DL (6.0-8.5); VANCOMYCIN TROUGH 17.8 MCG/ML (10.0-20.0)
[2016-12-19 06:07] LABS: GLUCOSE, SERUM 95 MG/DL (60-99)
[2016-12-19 06:08] LABS: A/G RATIO 0.8 (0.7-1.9); ALKALINE PHOSPHATASE 100 U/L (45-117); DIGOXIN 3.6 NG/ML (0.8-2.0); GLOBULIN 3.5 G/DL (2.5-4.1); PHOSPHORUS, SERUM 3.2 MG/DL (2.5-4.5); SGOT(AST) 51 U/L (5-40); TOTAL BILIRUBIN 3.9 MG/DL (0-1.2)
[2016-12-19 07:08] LABS: ANISOCYTOSIS 1+ (5-10/OIF) (0-5/OIF); BAND NEUTROPHILS 14 %; LYMPHOCYTES 16 %; LYMPHOCYTES ABSOLUTE (CALC) 1.39 10/3/uL (0.67-4.30); MONOCYTES 13 %; MONOCYTES ABSOLUTE (CALC) 1.13 10/3/uL (0.21-1.20); NEUTROPHILS ABSOLUTE (CALC) 6.18 10/3/uL (2.02-8.40); PLATELET ESTIMATE ADQ (ADEQUATE); POIKILOCYTOSIS 1+ (5-10/OIF) (0-5/OIF); POLYCHROMASIA 1+ (2-5/OIF) (0-1/OIF); SEGMENTED NEUTROPHIL (0) 57 %; TOTAL NUCLEATED CELLS 100
[2016-12-19 07:09] LABS: SCHISTOCYTES OCC (0-2/OIF)
[2016-12-19 11:08] LABS: HEMATOCRIT 29.3 % (40.0-51.0); HEMOGLOBIN 9.3 g/dL (13.6-17.8); MEAN CORPUS HGB CONC 31.7 g/dL (32.0-36.0); MEAN CORPUSCULAR HEMOGLOB 27.4 pg (26.0-34.0); MEAN CORPUSCULAR VOLUME 86.4 fL (80-100); MEAN PLATELET VOLUME 9.5 fL (9.2-13.0); NUCLEATED RED BLOOD CELLS 1.4 /100WBC (0-0); PLATELET COUNT 137 10/3/uL (150-400); RED CELL COUNT 3.39 10/6/uL (4.7-6.1); WHITE BLOOD CELLS 8.9 10/3/uL (4.5-10.5)
[2016-12-19 11:11] LABS: INTERNATIONAL NORMAL RATI 2.4 UNITS (-); PARTIAL THROMBO TIME 47.8 SEC (22.5-37.2)
[2016-12-19 11:12] LABS: BUN (BLOOD UREA NITROGEN) 6 MG/DL (6-23); CALCIUM, SERUM 7.9 MG/DL (8.5-10.4); CHLORIDE, SERUM 103 MMOL/L (96-112); CO2 (CARBON DIOXIDE) 24 MMOL/L (24-34); CREATININE 1.07 MG/DL (0.70-1.30); GFR AFRICAN AMERICAN 87 ML/MIN (>=60); GFR NON AFRICAN AMERICAN 75 ML/MIN (>=60); GLUCOSE, SERUM 107 MG/DL (60-99); POTASSIUM, SERUM 3.8 MMOL/L (3.5-5.3); SODIUM, SERUM 140 MMOL/L (135-148)
[2016-12-19 11:15] LABS: MANUAL DIFF YES %
[2016-12-19 11:55] LABS: ANISOCYTOSIS 1+ (5-10/OIF) (0-5/OIF); EOSINOPHILS 2 %; EOSINOPHILS ABSOLUTE (CALC) 0.18 10/3/uL (0.0-0.53); LYMPHOCYTES 20 %; LYMPHOCYTES ABSOLUTE (CALC) 1.78 10/3/uL (0.67-4.30); MONOCYTES 20 %; MONOCYTES ABSOLUTE (CALC) 1.78 10/3/uL (0.21-1.20); NEUTROPHILS ABSOLUTE (CALC) 5.16 10/3/uL (2.02-8.40); PLATELET ESTIMATE SLT DEC (ADEQUATE); RBC MORPHOLOGY ABN (NORMAL); SEGMENTED NEUTROPHIL (0) 58 %; TOTAL NUCLEATED CELLS 100
[2016-12-19 11:56] LABS: ACANTHOCYTES OCC (0-2/OIF); BURR CELLS 1+ (3-10/OIF) (0-2/OIF); SCHISTOCYTES OCC (0-2/OIF); TARGET CELLS FEW (3-10/OIF) (0-1/OIF)
[2016-12-19 12:57] LABS: PROCALCITONIN 0.92 ng/mL (<0.5)
[2016-12-19 17:33] LABS: HEMATOCRIT 28.4 % (40.0-51.0); HEMOGLOBIN 9.1 g/dL (13.6-17.8); MEAN CORPUSCULAR HEMOGLOB 27.7 pg (26.0-34.0); MEAN CORPUSCULAR VOLUME 86.3 fL (80-100); MEAN PLATELET VOLUME 9.7 fL (9.2-13.0); NUCLEATED RED BLOOD CELLS 1.8 /100WBC (0-0); PLATELET COUNT 140 10/3/uL (150-400); RED CELL COUNT 3.29 10/6/uL (4.7-6.1); WHITE BLOOD CELLS 9.1 10/3/uL (4.5-10.5)
[2016-12-19 17:40] LABS: MANUAL DIFF YES %
[2016-12-19 17:45] LABS: BUN (BLOOD UREA NITROGEN) 5 MG/DL (6-23); CHLORIDE, SERUM 103 MMOL/L (96-112); CO2 (CARBON DIOXIDE) 24 MMOL/L (24-34); CREATININE 1.07 MG/DL (0.70-1.30); GFR AFRICAN AMERICAN 87 ML/MIN (>=60); GFR NON AFRICAN AMERICAN 75 ML/MIN (>=60); GLUCOSE, SERUM 99 MG/DL (60-99); POTASSIUM, SERUM 3.8 MMOL/L (3.5-5.3); SODIUM, SERUM 139 MMOL/L (135-148)
[2016-12-19 17:46] LABS: PHOSPHORUS, SERUM 1.8 MG/DL (2.5-4.5)
[2016-12-19 17:49] LABS: EOSINOPHILS 1 %; EOSINOPHILS ABSOLUTE (CALC) 0.09 10/3/uL (0.0-0.53); IMMATURE GRANS ABSOLUTE (CALC) 0.09 10/3/uL (0.0-0.11); LYMPHOCYTES 16 %; LYMPHOCYTES ABSOLUTE (CALC) 1.46 10/3/uL (0.67-4.30); METAMYELOCYTES 1 %; MONOCYTES 11 %; NEUTROPHILS ABSOLUTE (CALC) 6.46 10/3/uL (2.02-8.40); SEGMENTED NEUTROPHIL (0) 71 %; TOTAL NUCLEATED CELLS 100
[2016-12-19 17:52] LABS: ACANTHOCYTES OCC (0-2/OIF); ANISOCYTOSIS 1+ (5-10/OIF) (0-5/OIF); BURR CELLS 1+ (3-10/OIF) (0-2/OIF); SCHISTOCYTES OCC (0-2/OIF)
[2016-12-19 23:22] LABS: HEMATOCRIT 28.7 % (40.0-51.0); HEMOGLOBIN 9.2 g/dL (13.6-17.8); MEAN CORPUS HGB CONC 32.1 g/dL (32.0-36.0); MEAN CORPUSCULAR HEMOGLOB 27.6 pg (26.0-34.0); MEAN CORPUSCULAR VOLUME 86.2 fL (80-100); MEAN PLATELET VOLUME 9.4 fL (9.2-13.0); NUCLEATED RED BLOOD CELLS 1.3 /100WBC (0-0); PLATELET COUNT 128 10/3/uL (150-400); RBC DISTRIBUTION WIDTH 21.1 % (12.0-16.0); RED CELL COUNT 3.33 10/6/uL (4.7-6.1); WHITE BLOOD CELLS 10.5 10/3/uL (4.5-10.5)
[2016-12-19 23:27] LABS: BUN (BLOOD UREA NITROGEN) 5 MG/DL (6-23); CALCIUM, SERUM 7.6 MG/DL (8.5-10.4); CHLORIDE, SERUM 102 MMOL/L (96-112); CO2 (CARBON DIOXIDE) 24 MMOL/L (24-34); CREATININE 0.95 MG/DL (0.70-1.30); GFR AFRICAN AMERICAN 100 ML/MIN (>=60); GFR NON AFRICAN AMERICAN 87 ML/MIN (>=60); GLUCOSE, SERUM 95 MG/DL (60-99); POTASSIUM, SERUM 3.7 MMOL/L (3.5-5.3); SODIUM, SERUM 140 MMOL/L (135-148)
[2016-12-19 23:28] LABS: PHOSPHORUS, SERUM 3.6 MG/DL (2.5-4.5)
[2016-12-19 23:34] LABS: MANUAL DIFF YES %
[2016-12-20 00:14] LABS: EOSINOPHILS 2 %; EOSINOPHILS ABSOLUTE (CALC) 0.21 10/3/uL (0.0-0.53); LYMPHOCYTES 14 %; LYMPHOCYTES ABSOLUTE (CALC) 1.47 10/3/uL (0.67-4.30); MONOCYTES 12 %; MONOCYTES ABSOLUTE (CALC) 1.26 10/3/uL (0.21-1.20); NEUTROPHILS ABSOLUTE (CALC) 7.56 10/3/uL (2.02-8.40); SEGMENTED NEUTROPHIL (0) 72 %; TOTAL NUCLEATED CELLS 100
[2016-12-20 00:17] LABS: ANISOCYTOSIS 1+ (5-10/OIF) (0-5/OIF); OVALOCYTES 1+ (3-10/OIF) (0-2/OIF); PLATELET ESTIMATE SLT DEC (ADEQUATE); TEARDROP SHAPED RBCS FEW (3-10/OIF)
[2016-12-20 00:18] LABS: POLYCHROMASIA 1+ (2-5/OIF) (0-1/OIF); SCHISTOCYTES OCC (0-2/OIF)
[2016-12-20 03:45] LABS: ALLENS TEST Pos; BE (BASE EXCESS) -2.6 MEQ/L (0 +/- 2.5); BIPAP 14/5 cm.H2O; CARBOXYHEMOGLOBIN 1.5 % (0-3); HCO3 (ACTUAL BICARBONATE) 22.8 MEQ/L (23-27); HEMOBLOGIN CONTENT 10.1 G/DL (14-18); INSTRUMENT SERIAL # 8087; METHEMOGLOBIN 0.1 % (0-3); O2 CONTENT 14.2 VOL% (18-24); OPERATOR ID 17589; PCO2 (CO2 TENSION) 42 MMHG (35-45); PO2 (O2 TENSION) 143 MMHG (79-93); SAMPLE Arterial; pH 7.36 (7.37-7.43)
[2016-12-20 05:24] LABS: HEMATOCRIT 29.6 % (40.0-51.0); HEMOGLOBIN 9.4 g/dL (13.6-17.8); MEAN CORPUS HGB CONC 31.8 g/dL (32.0-36.0); MEAN CORPUSCULAR HEMOGLOB 27.5 pg (26.0-34.0); MEAN CORPUSCULAR VOLUME 86.5 fL (80-100); MEAN PLATELET VOLUME 9.2 fL (9.2-13.0); PLATELET COUNT 121 10/3/uL (150-400); RED CELL COUNT 3.42 10/6/uL (4.7-6.1); WHITE BLOOD CELLS 10.9 10/3/uL (4.5-10.5)
[2016-12-20 05:27] LABS: MANUAL DIFF NO %
[2016-12-20 05:33] LABS: NUCLEATED RED BLOOD CELLS 0.5 /100WBC (0-0)
[2016-12-20 05:41] LABS: A/G RATIO 0.8 (0.7-1.9); ALBUMIN 3.2 G/DL (3.5-5.0); BUN (BLOOD UREA NITROGEN) 4 MG/DL (6-23); CALCIUM, SERUM 7.9 MG/DL (8.5-10.4); CHLORIDE, SERUM 102 MMOL/L (96-112); CO2 (CARBON DIOXIDE) 24 MMOL/L (24-34); CREATININE 1.06 MG/DL (0.70-1.30); GFR AFRICAN AMERICAN 88 ML/MIN (>=60); GFR NON AFRICAN AMERICAN 76 ML/MIN (>=60); GLUCOSE, SERUM 87 MG/DL (60-99); POTASSIUM, SERUM 3.9 MMOL/L (3.5-5.3); SGOT(AST) 155 U/L (5-40); SGPT(ALT) 61 U/L (5-65); SODIUM, SERUM 140 MMOL/L (135-148); TOTAL PROTEIN 7.2 G/DL (6.0-8.5)
[2016-12-20 05:49] LABS: PHOSPHORUS, SERUM 2.4 MG/DL (2.5-4.5)
[2016-12-20 05:50] LABS: ALKALINE PHOSPHATASE 112 U/L (45-117); TOTAL BILIRUBIN 4.6 MG/DL (0-1.2)
[2016-12-20 07:17] LABS: BAND NEUTROPHILS 3 %; IMMATURE GRANS ABSOLUTE (CALC) 0.22 10/3/uL (0.0-0.11); LYMPHOCYTES 23 %; LYMPHOCYTES ABSOLUTE (CALC) 2.51 10/3/uL (0.67-4.30); METAMYELOCYTES 2 %; MONOCYTES 5 %; MONOCYTES ABSOLUTE (CALC) 0.55 10/3/uL (0.21-1.20); NEUTROPHILS ABSOLUTE (CALC) 7.63 10/3/uL (2.02-8.40); PLATELET ESTIMATE SLT DEC (ADEQUATE); SEGMENTED NEUTROPHIL (0) 67 %; TOTAL NUCLEATED CELLS 100
[2016-12-20 11:19] LABS: HEMATOCRIT 29.1 % (40.0-51.0); HEMOGLOBIN 9.2 g/dL (13.6-17.8); MEAN CORPUS HGB CONC 31.6 g/dL (32.0-36.0); MEAN CORPUSCULAR HEMOGLOB 27.1 pg (26.0-34.0); MEAN CORPUSCULAR VOLUME 85.8 fL (80-100); MEAN PLATELET VOLUME 10.7 fL (9.2-13.0); NUCLEATED RED BLOOD CELLS 0.6 /100WBC (0-0); PLATELET COUNT 125 10/3/uL (150-400); RBC DISTRIBUTION WIDTH 21.3 % (12.0-16.0); RED CELL COUNT 3.39 10/6/uL (4.7-6.1)
[2016-12-20 11:20] LABS: MANUAL DIFF YES %
[2016-12-20 11:26] LABS: BUN (BLOOD UREA NITROGEN) 4 MG/DL (6-23); CALCIUM, SERUM 7.9 MG/DL (8.5-10.4); CHLORIDE, SERUM 102 MMOL/L (96-112); CO2 (CARBON DIOXIDE) 23 MMOL/L (24-34); CREATININE 0.97 MG/DL (0.70-1.30); GFR AFRICAN AMERICAN 98 ML/MIN (>=60); GFR NON AFRICAN AMERICAN 85 ML/MIN (>=60); GLUCOSE, SERUM 76 MG/DL (60-99); SODIUM, SERUM 140 MMOL/L (135-148)
[2016-12-20 11:38] LABS: EOSINOPHILS 1 %; EOSINOPHILS ABSOLUTE (CALC) 0.11 10/3/uL (0.0-0.53); LYMPHOCYTES 16 %; LYMPHOCYTES ABSOLUTE (CALC) 1.76 10/3/uL (0.67-4.30); MONOCYTES 12 %; MONOCYTES ABSOLUTE (CALC) 1.32 10/3/uL (0.21-1.20); NEUTROPHILS ABSOLUTE (CALC) 7.81 10/3/uL (2.02-8.40); SEGMENTED NEUTROPHIL (0) 71 %; TOTAL NUCLEATED CELLS 100
[2016-12-20 11:39] LABS: ANISOCYTOSIS 1+ (5-10/OIF) (0-5/OIF); PLATELET ESTIMATE SLT DEC (ADEQUATE); SCHISTOCYTES OCC (0-2/OIF)
[2016-12-20 17:51] LABS: BASOPHILS 0.1 %; BASOPHILS ABSOLUTE 0.01 10/3/uL (0.0-0.16); EOSINOPHILS 0.4 %; EOSINOPHILS ABSOLUTE 0.04 10/3/uL (0.0-0.53); HEMATOCRIT 27.5 % (40.0-51.0); HEMOGLOBIN 8.9 g/dL (13.6-17.8); IMMATURE GRANULOCYTES 0.4 %; IMMATURE GRANULOCYTES ABSOLUTE 0.04 10/3/uL (0.0-0.11); LYMPHOCYTES 20.7 %; LYMPHOCYTES ABSOLUTE 2.11 10/3/uL (0.67-4.30); MEAN CORPUS HGB CONC 32.4 g/dL (32.0-36.0); MEAN CORPUSCULAR HEMOGLOB 27.6 pg (26.0-34.0); MEAN CORPUSCULAR VOLUME 85.4 fL (80-100); MEAN PLATELET VOLUME 9.8 fL (9.2-13.0); MONOCYTES 19.9 %; MONOCYTES ABSOLUTE 2.03 10/3/uL (0.21-1.20); NEUTROPHILS 58.5 %; NEUTROPHILS ABSOLUTE 5.96 10/3/uL (2.02-8.40); NUCLEATED RED BLOOD CELLS 0.6 /100WBC (0-0); PLATELET COUNT 107 10/3/uL (150-400); RBC DISTRIBUTION WIDTH 21.3 % (12.0-16.0); RED CELL COUNT 3.22 10/6/uL (4.7-6.1); WHITE BLOOD CELLS 10.2 10/3/uL (4.5-10.5)
[2016-12-20 17:52] LABS: MANUAL DIFF NO %
[2016-12-20 17:57] LABS: BUN (BLOOD UREA NITROGEN) 4 MG/DL (6-23); CALCIUM, SERUM 7.9 MG/DL (8.5-10.4); CHLORIDE, SERUM 102 MMOL/L (96-112); CO2 (CARBON DIOXIDE) 26 MMOL/L (24-34); CREATININE 0.96 MG/DL (0.70-1.30); GFR AFRICAN AMERICAN 99 ML/MIN (>=60); GFR NON AFRICAN AMERICAN 86 ML/MIN (>=60); POTASSIUM, SERUM 3.5 MMOL/L (3.5-5.3); SODIUM, SERUM 141 MMOL/L (135-148)
[2016-12-20 17:59] LABS: GLUCOSE, SERUM 114 MG/DL (60-99)
[2016-12-20 18:44] LABS: PHOSPHORUS, SERUM 1.7 MG/DL (2.5-4.5)
[2016-12-20 22:59] LABS: HEMATOCRIT 22.8 % (40.0-51.0); HEMOGLOBIN 7.3 g/dL (13.6-17.8); MANUAL DIFF YES %; MEAN CORPUSCULAR HEMOGLOB 27.7 pg (26.0-34.0); MEAN CORPUSCULAR VOLUME 86.4 fL (80-100); MEAN PLATELET VOLUME 9.9 fL (9.2-13.0); NUCLEATED RED BLOOD CELLS 0.5 /100WBC (0-0); PLATELET COUNT 84 10/3/uL (150-400); RBC DISTRIBUTION WIDTH 21.3 % (12.0-16.0); RED CELL COUNT 2.64 10/6/uL (4.7-6.1); WHITE BLOOD CELLS 8.1 10/3/uL (4.5-10.5)
[2016-12-20 23:08] LABS: BUN (BLOOD UREA NITROGEN) 3 MG/DL (6-23); CALCIUM, SERUM 7.6 MG/DL (8.5-10.4); CHLORIDE, SERUM 101 MMOL/L (96-112); CO2 (CARBON DIOXIDE) 23 MMOL/L (24-34); CREATININE 0.88 MG/DL (0.70-1.30); GFR AFRICAN AMERICAN 108 ML/MIN (>=60); GFR NON AFRICAN AMERICAN 93 ML/MIN (>=60); GLUCOSE, SERUM 115 MG/DL (60-99); POTASSIUM, SERUM 3.7 MMOL/L (3.5-5.3); SODIUM, SERUM 140 MMOL/L (135-148)
[2016-12-21 00:23] LABS: LYMPHOCYTES 8 %; LYMPHOCYTES ABSOLUTE (CALC) 0.65 10/3/uL (0.67-4.30); MONOCYTES 16 %; NEUTROPHILS ABSOLUTE (CALC) 6.16 10/3/uL (2.02-8.40); PLATELET ESTIMATE DEC (ADEQUATE); POIKILOCYTOSIS 1+ (5-10/OIF) (0-5/OIF); RBC MORPHOLOGY ABN (NORMAL); SEGMENTED NEUTROPHIL (0) 76 %; TOTAL NUCLEATED CELLS 100
[2016-12-21 05:36] LABS: HEMATOCRIT 24.6 % (40.0-51.0); MANUAL DIFF YES %; MEAN CORPUS HGB CONC 32.5 g/dL (32.0-36.0); MEAN CORPUSCULAR HEMOGLOB 27.9 pg (26.0-34.0); MEAN CORPUSCULAR VOLUME 85.7 fL (80-100); MEAN PLATELET VOLUME 9.8 fL (9.2-13.0); PLATELET COUNT 81 10/3/uL (150-400); RBC DISTRIBUTION WIDTH 21.4 % (12.0-16.0); RED CELL COUNT 2.87 10/6/uL (4.7-6.1)
[2016-12-21 06:12] LABS: ANISOCYTOSIS 1+ (5-10/OIF) (0-5/OIF); BAND NEUTROPHILS 2 %; EOSINOPHILS 1 %; EOSINOPHILS ABSOLUTE (CALC) 0.08 10/3/uL (0.0-0.53); LYMPHOCYTES 20 %; MONOCYTES 10 %; NEUTROPHILS ABSOLUTE (CALC) 5.52 10/3/uL (2.02-8.40); PLATELET ESTIMATE DEC (ADEQUATE); SEGMENTED NEUTROPHIL (0) 67 %; TOTAL NUCLEATED CELLS 100
[2016-12-21 06:33] LABS: BUN (BLOOD UREA NITROGEN) 3 MG/DL (6-23); CALCIUM, SERUM 6.9 MG/DL (8.5-10.4); CHLORIDE, SERUM 99 MMOL/L (96-112); CO2 (CARBON DIOXIDE) 22 MMOL/L (24-34); GFR AFRICAN AMERICAN 113 ML/MIN (>=60); GFR NON AFRICAN AMERICAN 97 ML/MIN (>=60); GLUCOSE, SERUM 332 MG/DL (60-99); PHOSPHORUS, SERUM 3.2 MG/DL (2.5-4.5); POTASSIUM, SERUM 3.2 MMOL/L (3.5-5.3); SODIUM, SERUM 138 MMOL/L (135-148)
[2016-12-21 06:34] LABS: DIGOXIN 2.1 NG/ML (0.8-2.0)
[2016-12-21 09:31] LABS: PLATELET COUNT 79 10/3/uL (150-400)
[2016-12-21 09:37] LABS: INTERNATIONAL NORMAL RATI 2.9 UNITS (-)
[2016-12-21 09:42] LABS: CREATININE 0.87 MG/DL (0.70-1.30)
[2016-12-21 10:02] LABS: PARTIAL THROMBO TIME > 150.0 SEC (22.5-37.2); PROTIME (NOT ORD) 30.4 SEC (12.0-14.5)
[2016-12-21 11:33] LABS: ALBUMIN 3.4 G/DL (3.5-5.0)
[2016-12-21 13:18] LABS: HEMATOCRIT 26.7 % (40.0-51.0); HEMOGLOBIN 8.6 g/dL (13.6-17.8); MEAN CORPUS HGB CONC 32.2 g/dL (32.0-36.0); MEAN CORPUSCULAR HEMOGLOB 27.5 pg (26.0-34.0); MEAN CORPUSCULAR VOLUME 85.3 fL (80-100); PLATELET COUNT 82 10/3/uL (150-400); RBC DISTRIBUTION WIDTH 21.3 % (12.0-16.0); RED CELL COUNT 3.13 10/6/uL (4.7-6.1); WHITE BLOOD CELLS 8.1 10/3/uL (4.5-10.5)
[2016-12-21 13:20] LABS: MANUAL DIFF YES %
[2016-12-21 13:28] LABS: BUN (BLOOD UREA NITROGEN) 3 MG/DL (6-23); CALCIUM, SERUM 7.9 MG/DL (8.5-10.4); CHLORIDE, SERUM 101 MMOL/L (96-112); CO2 (CARBON DIOXIDE) 27 MMOL/L (24-34); CREATININE 0.84 MG/DL (0.70-1.30); GFR AFRICAN AMERICAN 110 ML/MIN (>=60); GFR NON AFRICAN AMERICAN 95 ML/MIN (>=60); GLUCOSE, SERUM 75 MG/DL (60-99); POTASSIUM, SERUM 3.4 MMOL/L (3.5-5.3); SODIUM, SERUM 139 MMOL/L (135-148)
[2016-12-21 13:48] LABS: EOSINOPHILS 2 %; EOSINOPHILS ABSOLUTE (CALC) 0.16 10/3/uL (0.0-0.53); LYMPHOCYTES 28 %; LYMPHOCYTES ABSOLUTE (CALC) 2.27 10/3/uL (0.67-4.30); MONOCYTES 18 %; MONOCYTES ABSOLUTE (CALC) 1.46 10/3/uL (0.21-1.20); NEUTROPHILS ABSOLUTE (CALC) 4.21 10/3/uL (2.02-8.40); PLATELET ESTIMATE DEC (ADEQUATE); SEGMENTED NEUTROPHIL (0) 52 %; TOTAL NUCLEATED CELLS 100
[2016-12-21 13:49] LABS: INTERNATIONAL NORMAL RATI 3.6 UNITS (-)
[2016-12-21 13:49] LABS: ANISOCYTOSIS 1+ (5-10/OIF) (0-5/OIF); HYPOCHROMIA 1+ (3-10/OIF) (0-2/OIF); TARGET CELLS FEW (3-10/OIF) (0-1/OIF)
[2016-12-21 13:50] LABS: PROTIME (NOT ORD) 35.7 SEC (12.0-14.5)
[2016-12-21 17:07] LABS: BASOPHILS 0.1 %; BASOPHILS ABSOLUTE 0.01 10/3/uL (0.0-0.16); EOSINOPHILS 0.8 %; EOSINOPHILS ABSOLUTE 0.08 10/3/uL (0.0-0.53); HEMATOCRIT 27.4 % (40.0-51.0); HEMOGLOBIN 8.9 g/dL (13.6-17.8); IMMATURE GRANULOCYTES 0.6 %; IMMATURE GRANULOCYTES ABSOLUTE 0.06 10/3/uL (0.0-0.11); LYMPHOCYTES 19.1 %; MEAN CORPUS HGB CONC 32.5 g/dL (32.0-36.0); MEAN CORPUSCULAR HEMOGLOB 27.6 pg (26.0-34.0); MEAN CORPUSCULAR VOLUME 84.8 fL (80-100); MEAN PLATELET VOLUME 10.3 fL (9.2-13.0); MONOCYTES 20.4 %; MONOCYTES ABSOLUTE 1.93 10/3/uL (0.21-1.20); NEUTROPHILS ABSOLUTE 5.56 10/3/uL (2.02-8.40); PLATELET COUNT 90 10/3/uL (150-400); RBC DISTRIBUTION WIDTH 21.1 % (12.0-16.0); RED CELL COUNT 3.23 10/6/uL (4.7-6.1); WHITE BLOOD CELLS 9.4 10/3/uL (4.5-10.5)
[2016-12-21 17:14] LABS: MANUAL DIFF NO %
[2016-12-21 17:27] LABS: BUN (BLOOD UREA NITROGEN) 3 MG/DL (6-23); CALCIUM, SERUM 8.2 MG/DL (8.5-10.4); CHLORIDE, SERUM 102 MMOL/L (96-112); CO2 (CARBON DIOXIDE) 23 MMOL/L (24-34); CREATININE 0.97 MG/DL (0.70-1.30); GFR AFRICAN AMERICAN 98 ML/MIN (>=60); GFR NON AFRICAN AMERICAN 85 ML/MIN (>=60); SODIUM, SERUM 139 MMOL/L (135-148)
[2016-12-21 17:30] LABS: GLUCOSE, SERUM 93 MG/DL (60-99); PHOSPHORUS, SERUM 1.5 MG/DL (2.5-4.5); POTASSIUM, SERUM 4.4 MMOL/L (3.5-5.3)
[2016-12-21 23:32] LABS: BASOPHILS 0.1 %; BASOPHILS ABSOLUTE 0.01 10/3/uL (0.0-0.16); EOSINOPHILS 0.7 %; EOSINOPHILS ABSOLUTE 0.07 10/3/uL (0.0-0.53); HEMATOCRIT 28.1 % (40.0-51.0); IMMATURE GRANULOCYTES 0.6 %; IMMATURE GRANULOCYTES ABSOLUTE 0.06 10/3/uL (0.0-0.11); LYMPHOCYTES 22.9 %; LYMPHOCYTES ABSOLUTE 2.43 10/3/uL (0.67-4.30); MEAN CORPUSCULAR VOLUME 84.4 fL (80-100); MEAN PLATELET VOLUME 10.3 fL (9.2-13.0); MONOCYTES 15.5 %; MONOCYTES ABSOLUTE 1.64 10/3/uL (0.21-1.20); NEUTROPHILS 60.2 %; PLATELET COUNT 88 10/3/uL (150-400); RBC DISTRIBUTION WIDTH 21.4 % (12.0-16.0); RED CELL COUNT 3.33 10/6/uL (4.7-6.1); WHITE BLOOD CELLS 10.6 10/3/uL (4.5-10.5)
[2016-12-21 23:37] LABS: MANUAL DIFF NO %
[2016-12-21 23:49] LABS: BUN (BLOOD UREA NITROGEN) 3 MG/DL (6-23); CALCIUM, SERUM 8.4 MG/DL (8.5-10.4); CHLORIDE, SERUM 100 MMOL/L (96-112); CO2 (CARBON DIOXIDE) 23 MMOL/L (24-34); CREATININE 1.06 MG/DL (0.70-1.30); GFR AFRICAN AMERICAN 88 ML/MIN (>=60); GFR NON AFRICAN AMERICAN 76 ML/MIN (>=60); GLUCOSE, SERUM 86 MG/DL (60-99); SODIUM, SERUM 139 MMOL/L (135-148)
[2016-12-22 00:05] LABS: EOSINOPHILS 1 %; EOSINOPHILS ABSOLUTE (CALC) 0.11 10/3/uL (0.0-0.53); LYMPHOCYTES 24 %; LYMPHOCYTES ABSOLUTE (CALC) 2.54 10/3/uL (0.67-4.30); MONOCYTES 8 %; MONOCYTES ABSOLUTE (CALC) 0.85 10/3/uL (0.21-1.20); PLATELET ESTIMATE DEC (ADEQUATE); SEGMENTED NEUTROPHIL (0) 67 %; TOTAL NUCLEATED CELLS 100
[2016-12-22 00:06] LABS: RBC MORPHOLOGY ABN (NORMAL)
[2016-12-22 04:47] LABS: BASOPHILS 0.1 %; BASOPHILS ABSOLUTE 0.01 10/3/uL (0.0-0.16); EOSINOPHILS 0.4 %; EOSINOPHILS ABSOLUTE 0.04 10/3/uL (0.0-0.53); HEMATOCRIT 26.8 % (40.0-51.0); HEMOGLOBIN 8.9 g/dL (13.6-17.8); IMMATURE GRANULOCYTES 0.5 %; IMMATURE GRANULOCYTES ABSOLUTE 0.05 10/3/uL (0.0-0.11); LYMPHOCYTES ABSOLUTE 1.78 10/3/uL (0.67-4.30); MANUAL DIFF NO %; MEAN CORPUS HGB CONC 33.2 g/dL (32.0-36.0); MEAN CORPUSCULAR VOLUME 84.3 fL (80-100); MEAN PLATELET VOLUME 10.3 fL (9.2-13.0); MONOCYTES 19.3 %; MONOCYTES ABSOLUTE 1.91 10/3/uL (0.21-1.20); NEUTROPHILS 61.7 %; PLATELET COUNT 79 10/3/uL (150-400); RBC DISTRIBUTION WIDTH 21.3 % (12.0-16.0); RED CELL COUNT 3.18 10/6/uL (4.7-6.1); WHITE BLOOD CELLS 9.9 10/3/uL (4.5-10.5)
[2016-12-22 05:01] LABS: A/G RATIO 0.9 (0.7-1.9); ALBUMIN 3.5 G/DL (3.5-5.0); ALKALINE PHOSPHATASE 106 U/L (45-117); BUN (BLOOD UREA NITROGEN) 4 MG/DL (6-23); CHLORIDE, SERUM 100 MMOL/L (96-112); CO2 (CARBON DIOXIDE) 23 MMOL/L (24-34); CREATININE 1.08 MG/DL (0.70-1.30); GFR AFRICAN AMERICAN 86 ML/MIN (>=60); GFR NON AFRICAN AMERICAN 74 ML/MIN (>=60); GLOBULIN 3.7 G/DL (2.5-4.1); GLUCOSE, SERUM 84 MG/DL (60-99); POTASSIUM, SERUM 3.9 MMOL/L (3.5-5.3); SGOT(AST) 493 U/L (5-40); SGPT(ALT) 226 U/L (5-65); SODIUM, SERUM 140 MMOL/L (135-148); TOTAL PROTEIN 7.2 G/DL (6.0-8.5); VANCOMYCIN TROUGH 25.6 MCG/ML (10.0-20.0)
[2016-12-22 05:02] LABS: PHOSPHORUS, SERUM 3.1 MG/DL (2.5-4.5); TOTAL BILIRUBIN 5.1 MG/DL (0-1.2)
[2016-12-22 05:22] LABS: ANISOCYTOSIS 1+ (5-10/OIF) (0-5/OIF); PLATELET ESTIMATE DEC (ADEQUATE); RBC MORPHOLOGY ABN (NORMAL)
[2016-12-22 05:48] LABS: CALCIUM IONIZED 4.27 MG/DL (3.80-4.80)
[2016-12-22 07:13] LABS: PROCALCITONIN 0.76 ng/mL (<0.5)
[2016-12-22 10:59] LABS: HEMATOCRIT 26.8 % (40.0-51.0); HEMOGLOBIN 8.9 g/dL (13.6-17.8); MEAN CORPUS HGB CONC 33.2 g/dL (32.0-36.0); MEAN CORPUSCULAR VOLUME 84.3 fL (80-100); MEAN PLATELET VOLUME 10.6 fL (9.2-13.0); PLATELET COUNT 82 10/3/uL (150-400); RBC DISTRIBUTION WIDTH 21.4 % (12.0-16.0); RED CELL COUNT 3.18 10/6/uL (4.7-6.1); WHITE BLOOD CELLS 10.3 10/3/uL (4.5-10.5)
[2016-12-22 11:03] LABS: MANUAL DIFF YES %
[2016-12-22 11:12] LABS: BUN (BLOOD UREA NITROGEN) 5 MG/DL (6-23); CALCIUM, SERUM 8.3 MG/DL (8.5-10.4); CHLORIDE, SERUM 100 MMOL/L (96-112); CO2 (CARBON DIOXIDE) 25 MMOL/L (24-34); CREATININE 1.21 MG/DL (0.70-1.30); GFR AFRICAN AMERICAN 75 ML/MIN (>=60); GFR NON AFRICAN AMERICAN 65 ML/MIN (>=60); POTASSIUM, SERUM 3.6 MMOL/L (3.5-5.3); SODIUM, SERUM 139 MMOL/L (135-148)
[2016-12-22 11:13] LABS: GLUCOSE, SERUM 113 MG/DL (60-99)
[2016-12-22 11:20] LABS: ANISOCYTOSIS 1+ (5-10/OIF) (0-5/OIF); EOSINOPHILS 2 %; EOSINOPHILS ABSOLUTE (CALC) 0.21 10/3/uL (0.0-0.53); LYMPHOCYTES 30 %; LYMPHOCYTES ABSOLUTE (CALC) 3.09 10/3/uL (0.67-4.30); MONOCYTES 9 %; MONOCYTES ABSOLUTE (CALC) 0.93 10/3/uL (0.21-1.20); NEUTROPHILS ABSOLUTE (CALC) 6.08 10/3/uL (2.02-8.40); PLATELET ESTIMATE DEC (ADEQUATE); SEGMENTED NEUTROPHIL (0) 59 %; TOTAL NUCLEATED CELLS 100
[2016-12-22 16:49] LABS: BASOPHILS 0.1 %; BASOPHILS ABSOLUTE 0.01 10/3/uL (0.0-0.16); EOSINOPHILS 0.5 %; EOSINOPHILS ABSOLUTE 0.06 10/3/uL (0.0-0.53); HEMATOCRIT 28.9 % (40.0-51.0); HEMOGLOBIN 9.3 g/dL (13.6-17.8); IMMATURE GRANULOCYTES 0.6 %; IMMATURE GRANULOCYTES ABSOLUTE 0.07 10/3/uL (0.0-0.11); LYMPHOCYTES 22.7 %; LYMPHOCYTES ABSOLUTE 2.77 10/3/uL (0.67-4.30); MEAN CORPUS HGB CONC 32.2 g/dL (32.0-36.0); MEAN CORPUSCULAR HEMOGLOB 27.2 pg (26.0-34.0); MEAN CORPUSCULAR VOLUME 84.5 fL (80-100); MEAN PLATELET VOLUME 11.1 fL (9.2-13.0); MONOCYTES 16.9 %; MONOCYTES ABSOLUTE 2.06 10/3/uL (0.21-1.20); NEUTROPHILS 59.2 %; NEUTROPHILS ABSOLUTE 7.21 10/3/uL (2.02-8.40); NUCLEATED RED BLOOD CELLS 0.3 /100WBC (0-0); PLATELET COUNT 72 10/3/uL (150-400); RBC DISTRIBUTION WIDTH 21.5 % (12.0-16.0); RED CELL COUNT 3.42 10/6/uL (4.7-6.1); WHITE BLOOD CELLS 12.2 10/3/uL (4.5-10.5)
[2016-12-22 16:50] LABS: MANUAL DIFF NO %
[2016-12-22 16:54] LABS: BUN (BLOOD UREA NITROGEN) 4 MG/DL (6-23); CHLORIDE, SERUM 101 MMOL/L (96-112); CO2 (CARBON DIOXIDE) 21 MMOL/L (24-34); CREATININE 1.27 MG/DL (0.70-1.30); GFR AFRICAN AMERICAN 71 ML/MIN (>=60); GFR NON AFRICAN AMERICAN 61 ML/MIN (>=60); GLUCOSE, SERUM 94 MG/DL (60-99); PHOSPHORUS, SERUM 2.4 MG/DL (2.5-4.5); POTASSIUM, SERUM 4.2 MMOL/L (3.5-5.3); SODIUM, SERUM 139 MMOL/L (135-148)
[2016-12-22 17:07] LABS: PLATELET ESTIMATE DEC (ADEQUATE)
[2016-12-22 23:32] LABS: BUN (BLOOD UREA NITROGEN) 5 MG/DL (6-23); CALCIUM, SERUM 8.4 MG/DL (8.5-10.4); CHLORIDE, SERUM 100 MMOL/L (96-112); CO2 (CARBON DIOXIDE) 23 MMOL/L (24-34); CREATININE 1.27 MG/DL (0.70-1.30); GFR AFRICAN AMERICAN 71 ML/MIN (>=60); GFR NON AFRICAN AMERICAN 61 ML/MIN (>=60); GLUCOSE, SERUM 94 MG/DL (60-99); POTASSIUM, SERUM 4.3 MMOL/L (3.5-5.3); SODIUM, SERUM 138 MMOL/L (135-148)
[2016-12-22 23:49] LABS: BASOPHILS 0.1 %; BASOPHILS ABSOLUTE 0.01 10/3/uL (0.0-0.16); EOSINOPHILS 0.3 %; EOSINOPHILS ABSOLUTE 0.04 10/3/uL (0.0-0.53); HEMATOCRIT 28.9 % (40.0-51.0); HEMOGLOBIN 9.3 g/dL (13.6-17.8); IMMATURE GRANULOCYTES 0.8 %; IMMATURE GRANULOCYTES ABSOLUTE 0.09 10/3/uL (0.0-0.11); LYMPHOCYTES 16.5 %; LYMPHOCYTES ABSOLUTE 1.95 10/3/uL (0.67-4.30); MEAN CORPUS HGB CONC 32.2 g/dL (32.0-36.0); MEAN CORPUSCULAR HEMOGLOB 27.1 pg (26.0-34.0); MEAN CORPUSCULAR VOLUME 84.3 fL (80-100); MONOCYTES 17.8 %; NEUTROPHILS 64.5 %; NEUTROPHILS ABSOLUTE 7.62 10/3/uL (2.02-8.40); PLATELET COUNT 87 10/3/uL (150-400); RBC DISTRIBUTION WIDTH 21.5 % (12.0-16.0); RED CELL COUNT 3.43 10/6/uL (4.7-6.1); WHITE BLOOD CELLS 11.8 10/3/uL (4.5-10.5)
[2016-12-23 00:18] LABS: GIANT PLATELET FEW; PLATELET ESTIMATE DEC (ADEQUATE)
[2016-12-23 00:43] LABS: MANUAL DIFF NO %
[2016-12-23 03:49] LABS: ALLENS TEST Pos; BE (BASE EXCESS) -3.3 MEQ/L (0 +/- 2.5); BIPAP 14/5 cm.H2O; CARBOXYHEMOGLOBIN 0.4 % (0-3); HCO3 (ACTUAL BICARBONATE) 22.3 MEQ/L (23-27); HEMOBLOGIN CONTENT 10.1 G/DL (14-18); INSTRUMENT SERIAL # 35151; METHEMOGLOBIN 0.6 % (0-3); O2 CONTENT 14.2 VOL% (18-24); OPERATOR ID 16503; PCO2 (CO2 TENSION) 42 MMHG (35-45); PO2 (O2 TENSION) 153 MMHG (79-93); SAMPLE Arterial; pH 7.34 (7.37-7.43)
[2016-12-23 04:44] LABS: BASOPHILS 0.2 %; BASOPHILS ABSOLUTE 0.02 10/3/uL (0.0-0.16); EOSINOPHILS 0.6 %; EOSINOPHILS ABSOLUTE 0.06 10/3/uL (0.0-0.53); HEMOGLOBIN 9.2 g/dL (13.6-17.8); IMMATURE GRANULOCYTES 0.5 %; IMMATURE GRANULOCYTES ABSOLUTE 0.05 10/3/uL (0.0-0.11); LYMPHOCYTES 17.6 %; LYMPHOCYTES ABSOLUTE 1.77 10/3/uL (0.67-4.30); MEAN CORPUS HGB CONC 32.9 g/dL (32.0-36.0); MEAN CORPUSCULAR HEMOGLOB 27.7 pg (26.0-34.0); MEAN CORPUSCULAR VOLUME 84.3 fL (80-100); MONOCYTES 17.3 %; MONOCYTES ABSOLUTE 1.74 10/3/uL (0.21-1.20); NEUTROPHILS 63.8 %; NEUTROPHILS ABSOLUTE 6.44 10/3/uL (2.02-8.40); PLATELET COUNT 75 10/3/uL (150-400); RBC DISTRIBUTION WIDTH 21.5 % (12.0-16.0); RED CELL COUNT 3.32 10/6/uL (4.7-6.1); WHITE BLOOD CELLS 10.1 10/3/uL (4.5-10.5)
[2016-12-23 04:48] LABS: MANUAL DIFF NO %
[2016-12-23 04:56] LABS: A/G RATIO 0.9 (0.7-1.9); ALBUMIN 3.5 G/DL (3.5-5.0); ALKALINE PHOSPHATASE 108 U/L (45-117); BUN (BLOOD UREA NITROGEN) 4 MG/DL (6-23); CALCIUM, SERUM 8.6 MG/DL (8.5-10.4); CHLORIDE, SERUM 103 MMOL/L (96-112); CO2 (CARBON DIOXIDE) 24 MMOL/L (24-34); GFR AFRICAN AMERICAN 76 ML/MIN (>=60); GFR NON AFRICAN AMERICAN 65 ML/MIN (>=60); GLOBULIN 3.9 G/DL (2.5-4.1); GLUCOSE, SERUM 93 MG/DL (60-99); PHOSPHORUS, SERUM 2.7 MG/DL (2.5-4.5); POTASSIUM, SERUM 3.9 MMOL/L (3.5-5.3); SGOT(AST) 339 U/L (5-40); SGPT(ALT) 208 U/L (5-65); SODIUM, SERUM 139 MMOL/L (135-148); TOTAL PROTEIN 7.4 G/DL (6.0-8.5)
[2016-12-23 04:57] LABS: TOTAL BILIRUBIN 5.8 MG/DL (0-1.2)
[2016-12-23 06:18] LABS: PLATELET ESTIMATE DEC (ADEQUATE); RBC MORPHOLOGY ABN (NORMAL)
[2016-12-23 13:00] LABS: BASOPHILS 0.1 %; BASOPHILS ABSOLUTE 0.01 10/3/uL (0.0-0.16); EOSINOPHILS 1.2 %; EOSINOPHILS ABSOLUTE 0.11 10/3/uL (0.0-0.53); HEMATOCRIT 28.4 % (40.0-51.0); HEMOGLOBIN 9.2 g/dL (13.6-17.8); IMMATURE GRANULOCYTES 0.6 %; IMMATURE GRANULOCYTES ABSOLUTE 0.06 10/3/uL (0.0-0.11); LYMPHOCYTES 12.8 %; LYMPHOCYTES ABSOLUTE 1.21 10/3/uL (0.67-4.30); MEAN CORPUS HGB CONC 32.4 g/dL (32.0-36.0); MEAN CORPUSCULAR HEMOGLOB 27.6 pg (26.0-34.0); MEAN CORPUSCULAR VOLUME 85.3 fL (80-100); MONOCYTES 17.9 %; MONOCYTES ABSOLUTE 1.69 10/3/uL (0.21-1.20); NEUTROPHILS 67.4 %; NEUTROPHILS ABSOLUTE 6.38 10/3/uL (2.02-8.40); PLATELET COUNT 74 10/3/uL (150-400); RBC DISTRIBUTION WIDTH 21.6 % (12.0-16.0); RED CELL COUNT 3.33 10/6/uL (4.7-6.1); WHITE BLOOD CELLS 9.5 10/3/uL (4.5-10.5)
[2016-12-23 13:03] LABS: MANUAL DIFF NO %
[2016-12-23 13:17] LABS: BUN (BLOOD UREA NITROGEN) 5 MG/DL (6-23); CALCIUM, SERUM 8.1 MG/DL (8.5-10.4); CHLORIDE, SERUM 102 MMOL/L (96-112); CO2 (CARBON DIOXIDE) 24 MMOL/L (24-34); CREATININE 1.23 MG/DL (0.70-1.30); GFR AFRICAN AMERICAN 73 ML/MIN (>=60); GFR NON AFRICAN AMERICAN 63 ML/MIN (>=60); GLUCOSE, SERUM 114 MG/DL (60-99); POTASSIUM, SERUM 4.1 MMOL/L (3.5-5.3); SODIUM, SERUM 139 MMOL/L (135-148)
[2016-12-23 13:27] LABS: ANISOCYTOSIS 1+ (5-10/OIF) (0-5/OIF); PLATELET ESTIMATE DEC (ADEQUATE)
[2016-12-23 13:29] LABS: HYPOCHROMIA 1+ (3-10/OIF) (0-2/OIF); MACROCYTES 1+ (5-10/OIF) (0-5/OIF)
[2016-12-23 13:30] LABS: BURR CELLS 1+ (3-10/OIF) (0-2/OIF)
[2016-12-23 13:47] LABS: HEPARIN-INDUCED PLATELET AB NEGATIVE (NEGATIVE); HIT PATIENT O.D. 0.184 OD (0.000-0.299)
[2016-12-23 17:14] LABS: BUN (BLOOD UREA NITROGEN) 5 MG/DL (6-23); CALCIUM, SERUM 8.3 MG/DL (8.5-10.4); CHLORIDE, SERUM 101 MMOL/L (96-112); CO2 (CARBON DIOXIDE) 25 MMOL/L (24-34); CREATININE 1.34 MG/DL (0.70-1.30); GFR AFRICAN AMERICAN 66 ML/MIN (>=60); GFR NON AFRICAN AMERICAN 57 ML/MIN (>=60); GLUCOSE, SERUM 181 MG/DL (60-99); SODIUM, SERUM 138 MMOL/L (135-148)
[2016-12-24 04:55] LABS: HEMATOCRIT 28.6 % (40.0-51.0); HEMOGLOBIN 9.1 g/dL (13.6-17.8); MEAN CORPUS HGB CONC 31.8 g/dL (32.0-36.0); MEAN CORPUSCULAR HEMOGLOB 27.1 pg (26.0-34.0); MEAN CORPUSCULAR VOLUME 85.1 fL (80-100); PLATELET COUNT 73 10/3/uL (150-400); RBC DISTRIBUTION WIDTH 21.5 % (12.0-16.0); RED CELL COUNT 3.36 10/6/uL (4.7-6.1); WHITE BLOOD CELLS 11.2 10/3/uL (4.5-10.5)
[2016-12-24 04:56] LABS: MANUAL DIFF YES %
[2016-12-24 05:18] LABS: A/G RATIO 0.7 (0.7-1.9); ALBUMIN 3.1 G/DL (3.5-5.0); ALKALINE PHOSPHATASE 109 U/L (45-117); BUN (BLOOD UREA NITROGEN) 5 MG/DL (6-23); CALCIUM, SERUM 8.2 MG/DL (8.5-10.4); CHLORIDE, SERUM 103 MMOL/L (96-112); CO2 (CARBON DIOXIDE) 26 MMOL/L (24-34); CREATININE 1.34 MG/DL (0.70-1.30); GFR AFRICAN AMERICAN 66 ML/MIN (>=60); GFR NON AFRICAN AMERICAN 57 ML/MIN (>=60); GLOBULIN 4.2 G/DL (2.5-4.1); GLUCOSE, SERUM 86 MG/DL (60-99); PHOSPHORUS, SERUM 1.4 MG/DL (2.5-4.5); POTASSIUM, SERUM 3.3 MMOL/L (3.5-5.3); SGOT(AST) 194 U/L (5-40); SGPT(ALT) 168 U/L (5-65); SODIUM, SERUM 139 MMOL/L (135-148); TOTAL BILIRUBIN 5.2 MG/DL (0-1.2); TOTAL PROTEIN 7.3 G/DL (6.0-8.5); VANCOMYCIN TROUGH 29.7 MCG/ML (10.0-20.0)
[2016-12-24 05:33] LABS: LYMPHOCYTES 16 %; LYMPHOCYTES ABSOLUTE (CALC) 1.79 10/3/uL (0.67-4.30); MONOCYTES 8 %; NEUTROPHILS ABSOLUTE (CALC) 8.51 10/3/uL (2.02-8.40); SEGMENTED NEUTROPHIL (0) 76 %; TOTAL NUCLEATED CELLS 100
[2016-12-24 05:34] LABS: ANISOCYTOSIS 1+ (5-10/OIF) (0-5/OIF); HYPOCHROMIA 1+ (3-10/OIF) (0-2/OIF); POLYCHROMASIA 1+ (2-5/OIF) (0-1/OIF)
[2016-12-24 05:35] LABS: PLATELET ESTIMATE DEC (ADEQUATE)
[2016-12-24 06:08] LABS: PROCALCITONIN 0.88 ng/mL (<0.5)
[2016-12-24 17:36] LABS: BUN (BLOOD UREA NITROGEN) 5 MG/DL (6-23); CALCIUM, SERUM 8.2 MG/DL (8.5-10.4); CHLORIDE, SERUM 103 MMOL/L (96-112); CO2 (CARBON DIOXIDE) 24 MMOL/L (24-34); GFR AFRICAN AMERICAN 69 ML/MIN (>=60); GFR NON AFRICAN AMERICAN 59 ML/MIN (>=60); SODIUM, SERUM 139 MMOL/L (135-148)
[2016-12-24 17:37] LABS: GLUCOSE, SERUM 105 MG/DL (60-99)
[2016-12-25 04:55] LABS: BASOPHILS 0.1 %; BASOPHILS ABSOLUTE 0.01 10/3/uL (0.0-0.16); EOSINOPHILS 1.1 %; EOSINOPHILS ABSOLUTE 0.12 10/3/uL (0.0-0.53); HEMATOCRIT 25.9 % (40.0-51.0); HEMOGLOBIN 8.5 g/dL (13.6-17.8); IMMATURE GRANULOCYTES 0.4 %; IMMATURE GRANULOCYTES ABSOLUTE 0.04 10/3/uL (0.0-0.11); LYMPHOCYTES ABSOLUTE 1.37 10/3/uL (0.67-4.30); MEAN CORPUS HGB CONC 32.8 g/dL (32.0-36.0); MEAN CORPUSCULAR HEMOGLOB 27.4 pg (26.0-34.0); MEAN CORPUSCULAR VOLUME 83.5 fL (80-100); MONOCYTES 17.8 %; MONOCYTES ABSOLUTE 1.87 10/3/uL (0.21-1.20); NEUTROPHILS 67.6 %; NEUTROPHILS ABSOLUTE 7.11 10/3/uL (2.02-8.40); PLATELET COUNT 61 10/3/uL (150-400); RBC DISTRIBUTION WIDTH 21.5 % (12.0-16.0); WHITE BLOOD CELLS 10.5 10/3/uL (4.5-10.5)
[2016-12-25 04:57] LABS: MANUAL DIFF NO %
[2016-12-25 05:19] LABS: A/G RATIO 0.7 (0.7-1.9); ALBUMIN 2.7 G/DL (3.5-5.0); BUN (BLOOD UREA NITROGEN) 5 MG/DL (6-23); CALCIUM, SERUM 7.9 MG/DL (8.5-10.4); CHLORIDE, SERUM 101 MMOL/L (96-112); CO2 (CARBON DIOXIDE) 26 MMOL/L (24-34); CREATININE 1.34 MG/DL (0.70-1.30); GFR AFRICAN AMERICAN 66 ML/MIN (>=60); GFR NON AFRICAN AMERICAN 57 ML/MIN (>=60); GLUCOSE, SERUM 113 MG/DL (60-99); POTASSIUM, SERUM 3.3 MMOL/L (3.5-5.3); SGOT(AST) 118 U/L (5-40); SGPT(ALT) 127 U/L (5-65); SODIUM, SERUM 139 MMOL/L (135-148); TOTAL PROTEIN 6.7 G/DL (6.0-8.5)
[2016-12-25 05:22] LABS: ALKALINE PHOSPHATASE 96 U/L (45-117); PHOSPHORUS, SERUM 2.6 MG/DL (2.5-4.5)
[2016-12-25 05:45] LABS: POIKILOCYTOSIS 1+ (5-10/OIF) (0-5/OIF); RBC MORPHOLOGY ABN (NORMAL)
[2016-12-25 08:10] LABS: POTASSIUM, SERUM 3.6 MMOL/L (3.5-5.3)
[2016-12-25 17:47] LABS: BUN (BLOOD UREA NITROGEN) 5 MG/DL (6-23); CALCIUM, SERUM 8.3 MG/DL (8.5-10.4); CHLORIDE, SERUM 101 MMOL/L (96-112); CO2 (CARBON DIOXIDE) 24 MMOL/L (24-34); CREATININE 1.32 MG/DL (0.70-1.30); GFR AFRICAN AMERICAN 67 ML/MIN (>=60); GFR NON AFRICAN AMERICAN 58 ML/MIN (>=60); PHOSPHORUS, SERUM 2.2 MG/DL (2.5-4.5); POTASSIUM, SERUM 3.4 MMOL/L (3.5-5.3); SODIUM, SERUM 137 MMOL/L (135-148)
[2016-12-25 17:48] LABS: GLUCOSE, SERUM 157 MG/DL (60-99)
[2016-12-25 17:54] LABS: BASOPHILS 0.1 %; BASOPHILS ABSOLUTE 0.01 10/3/uL (0.0-0.16); EOSINOPHILS 0.9 %; HEMATOCRIT 27.4 % (40.0-51.0); HEMOGLOBIN 8.8 g/dL (13.6-17.8); IMMATURE GRANULOCYTES 0.5 %; IMMATURE GRANULOCYTES ABSOLUTE 0.06 10/3/uL (0.0-0.11); LYMPHOCYTES 13.3 %; LYMPHOCYTES ABSOLUTE 1.51 10/3/uL (0.67-4.30); MEAN CORPUS HGB CONC 32.1 g/dL (32.0-36.0); MONOCYTES 17.5 %; MONOCYTES ABSOLUTE 1.99 10/3/uL (0.21-1.20); NEUTROPHILS 67.7 %; NEUTROPHILS ABSOLUTE 7.69 10/3/uL (2.02-8.40); NUCLEATED RED BLOOD CELLS 0.4 /100WBC (0-0); PLATELET COUNT 60 10/3/uL (150-400); RBC DISTRIBUTION WIDTH 21.9 % (12.0-16.0); RED CELL COUNT 3.26 10/6/uL (4.7-6.1); WHITE BLOOD CELLS 11.4 10/3/uL (4.5-10.5)
[2016-12-25 17:55] LABS: MANUAL DIFF NO %
[2016-12-25 18:03] LABS: ANISOCYTOSIS 1+ (5-10/OIF) (0-5/OIF); PLATELET ESTIMATE DEC (ADEQUATE)
[2016-12-25 18:05] LABS: ACANTHOCYTES FEW (3-10/OIF); HELMET CELLS FEW (3-10/OIF)
[2016-12-25 18:06] LABS: HYPOCHROMIA 1+ (3-10/OIF) (0-2/OIF); MICROCYTES 1+ (5-10/OIF) (0-5/OIF); POLYCHROMASIA 1+ (2-5/OIF) (0-1/OIF)
[2016-12-25 18:07] LABS: BASOPHILIC STIPPLING 1+ (2-5/OIF) (0-1/OIF); SCHISTOCYTES OCC (0-2/OIF)
[2016-12-25 23:25] LABS: HEMATOCRIT 25.7 % (40.0-51.0); HEMOGLOBIN 8.4 g/dL (13.6-17.8)
[2016-12-26 04:11] LABS: ALLENS TEST Pos; BE (BASE EXCESS) -1.3 MEQ/L (0 +/- 2.5); CARBOXYHEMOGLOBIN 1.2 % (0-3); HCO3 (ACTUAL BICARBONATE) 23.7 MEQ/L (23-27); HEMOBLOGIN CONTENT 9.5 G/DL (14-18); INSTRUMENT SERIAL # 35151; METHEMOGLOBIN 0.6 % (0-3); O2 CONTENT 12.6 VOL% (18-24); OPERATOR ID 13861; PCO2 (CO2 TENSION) 41 MMHG (35-45); PO2 (O2 TENSION) 78 MMHG (79-93); SAMPLE Arterial; pH 7.38 (7.37-7.43)
[2016-12-26 05:10] LABS: A/G RATIO 0.7 (0.7-1.9); ALBUMIN 2.8 G/DL (3.5-5.0); ALKALINE PHOSPHATASE 103 U/L (45-117); BUN (BLOOD UREA NITROGEN) 5 MG/DL (6-23); CALCIUM, SERUM 8.5 MG/DL (8.5-10.4); CHLORIDE, SERUM 102 MMOL/L (96-112); CO2 (CARBON DIOXIDE) 25 MMOL/L (24-34); CREATININE 1.34 MG/DL (0.70-1.30); GFR AFRICAN AMERICAN 66 ML/MIN (>=60); GFR NON AFRICAN AMERICAN 57 ML/MIN (>=60); GLOBULIN 4.2 G/DL (2.5-4.1); PHOSPHORUS, SERUM 2.3 MG/DL (2.5-4.5); POTASSIUM, SERUM 3.9 MMOL/L (3.5-5.3); SGOT(AST) 115 U/L (5-40); SGPT(ALT) 113 U/L (5-65); SODIUM, SERUM 138 MMOL/L (135-148)
[2016-12-26 05:12] LABS: GLUCOSE, SERUM 115 MG/DL (60-99); TOTAL BILIRUBIN 5.7 MG/DL (0-1.2)
[2016-12-26 05:17] LABS: BASOPHILS 0.1 %; BASOPHILS ABSOLUTE 0.01 10/3/uL (0.0-0.16); EOSINOPHILS 1.1 %; HEMATOCRIT 26.3 % (40.0-51.0); HEMOGLOBIN 8.5 g/dL (13.6-17.8); IMMATURE GRANULOCYTES 0.4 %; IMMATURE GRANULOCYTES ABSOLUTE 0.04 10/3/uL (0.0-0.11); LYMPHOCYTES 16.2 %; LYMPHOCYTES ABSOLUTE 1.52 10/3/uL (0.67-4.30); MEAN CORPUS HGB CONC 32.3 g/dL (32.0-36.0); MEAN CORPUSCULAR HEMOGLOB 27.1 pg (26.0-34.0); MEAN CORPUSCULAR VOLUME 83.8 fL (80-100); MONOCYTES 15.6 %; MONOCYTES ABSOLUTE 1.46 10/3/uL (0.21-1.20); NEUTROPHILS 66.6 %; NEUTROPHILS ABSOLUTE 6.24 10/3/uL (2.02-8.40); PLATELET COUNT 54 10/3/uL (150-400); RBC DISTRIBUTION WIDTH 21.8 % (12.0-16.0); RED CELL COUNT 3.14 10/6/uL (4.7-6.1); WHITE BLOOD CELLS 9.4 10/3/uL (4.5-10.5)
[2016-12-26 05:18] LABS: MANUAL DIFF NO %
[2016-12-26 05:28] LABS: PLATELET ESTIMATE DEC (ADEQUATE); SCHISTOCYTES FEW (3-10/OIF)
[2016-12-26 10:48] LABS: HEMATOCRIT 26.3 % (40.0-51.0); HEMOGLOBIN 8.6 g/dL (13.6-17.8)
[2016-12-26 11:19] LABS: A/G RATIO 0.6 (0.7-1.9); ALBUMIN 2.8 G/DL (3.5-5.0); ALKALINE PHOSPHATASE 108 U/L (45-117); BUN (BLOOD UREA NITROGEN) 8 MG/DL (6-23); CALCIUM, SERUM 8.6 MG/DL (8.5-10.4); CHLORIDE, SERUM 99 MMOL/L (96-112); CO2 (CARBON DIOXIDE) 25 MMOL/L (24-34); CREATININE 1.61 MG/DL (0.70-1.30); GFR AFRICAN AMERICAN 53 ML/MIN (>=60); GFR NON AFRICAN AMERICAN 46 ML/MIN (>=60); GLOBULIN 4.4 G/DL (2.5-4.1); GLUCOSE, SERUM 167 MG/DL (60-99); POTASSIUM, SERUM 3.8 MMOL/L (3.5-5.3); SGOT(AST) 114 U/L (5-40); SGPT(ALT) 115 U/L (5-65); SODIUM, SERUM 136 MMOL/L (135-148); TOTAL BILIRUBIN 6.1 MG/DL (0-1.2); TOTAL PROTEIN 7.2 G/DL (6.0-8.5)
[2016-12-26 18:38] LABS: BASOPHILS 0.1 %; BASOPHILS ABSOLUTE 0.01 10/3/uL (0.0-0.16); EOSINOPHILS 1.6 %; EOSINOPHILS ABSOLUTE 0.16 10/3/uL (0.0-0.53); HEMATOCRIT 26.6 % (40.0-51.0); HEMOGLOBIN 8.6 g/dL (13.6-17.8); IMMATURE GRANULOCYTES 0.4 %; IMMATURE GRANULOCYTES ABSOLUTE 0.04 10/3/uL (0.0-0.11); LYMPHOCYTES 16.4 %; LYMPHOCYTES ABSOLUTE 1.67 10/3/uL (0.67-4.30); MEAN CORPUS HGB CONC 32.3 g/dL (32.0-36.0); MEAN CORPUSCULAR HEMOGLOB 27.4 pg (26.0-34.0); MEAN CORPUSCULAR VOLUME 84.7 fL (80-100); MONOCYTES 13.5 %; MONOCYTES ABSOLUTE 1.38 10/3/uL (0.21-1.20); NEUTROPHILS ABSOLUTE 6.93 10/3/uL (2.02-8.40); PLATELET COUNT 69 10/3/uL (150-400); RBC DISTRIBUTION WIDTH 22.1 % (12.0-16.0); RED CELL COUNT 3.14 10/6/uL (4.7-6.1); WHITE BLOOD CELLS 10.2 10/3/uL (4.5-10.5)
[2016-12-26 18:40] LABS: MANUAL DIFF NO %
[2016-12-26 18:53] LABS: BUN (BLOOD UREA NITROGEN) 10 MG/DL (6-23); CALCIUM, SERUM 8.6 MG/DL (8.5-10.4); CHLORIDE, SERUM 100 MMOL/L (96-112); CO2 (CARBON DIOXIDE) 24 MMOL/L (24-34); CREATININE 1.94 MG/DL (0.70-1.30); GFR AFRICAN AMERICAN 42 ML/MIN (>=60); GFR NON AFRICAN AMERICAN 37 ML/MIN (>=60); GLUCOSE, SERUM 149 MG/DL (60-99); POTASSIUM, SERUM 3.3 MMOL/L (3.5-5.3); SODIUM, SERUM 136 MMOL/L (135-148)
[2016-12-26 18:54] LABS: PHOSPHORUS, SERUM 3.6 MG/DL (2.5-4.5)
[2016-12-26 19:05] LABS: PLATELET ESTIMATE DEC (ADEQUATE); POLYCHROMASIA 1+ (2-5/OIF) (0-1/OIF)
[2016-12-26 19:06] LABS: ACANTHOCYTES OCC (0-2/OIF); SCHISTOCYTES OCC (0-2/OIF)
[2016-12-26 19:08] LABS: BURR CELLS 1+ (3-10/OIF) (0-2/OIF)
[2016-12-27 03:55] LABS: BASOPHILS 0.1 %; BASOPHILS ABSOLUTE 0.01 10/3/uL (0.0-0.16); EOSINOPHILS 1.9 %; EOSINOPHILS ABSOLUTE 0.18 10/3/uL (0.0-0.53); IMMATURE GRANULOCYTES 0.5 %; IMMATURE GRANULOCYTES ABSOLUTE 0.05 10/3/uL (0.0-0.11); LYMPHOCYTES 14.3 %; LYMPHOCYTES ABSOLUTE 1.37 10/3/uL (0.67-4.30); MANUAL DIFF NO %; MEAN CORPUS HGB CONC 33.3 g/dL (32.0-36.0); MEAN CORPUSCULAR HEMOGLOB 27.6 pg (26.0-34.0); MEAN CORPUSCULAR VOLUME 82.8 fL (80-100); MONOCYTES 14.6 %; NEUTROPHILS 68.6 %; NEUTROPHILS ABSOLUTE 6.57 10/3/uL (2.02-8.40); PLATELET COUNT 90 10/3/uL (150-400); RBC DISTRIBUTION WIDTH 22.3 % (12.0-16.0); RED CELL COUNT 3.26 10/6/uL (4.7-6.1); WHITE BLOOD CELLS 9.6 10/3/uL (4.5-10.5)
[2016-12-27 04:04] LABS: ALBUMIN 2.7 G/DL (3.5-5.0); BUN (BLOOD UREA NITROGEN) 11 MG/DL (6-23); CALCIUM, SERUM 8.3 MG/DL (8.5-10.4); CHLORIDE, SERUM 100 MMOL/L (96-112); CO2 (CARBON DIOXIDE) 24 MMOL/L (24-34); CREATININE 2.15 MG/DL (0.70-1.30); GFR AFRICAN AMERICAN 37 ML/MIN (>=60); GFR NON AFRICAN AMERICAN 32 ML/MIN (>=60); GLUCOSE, SERUM 121 MG/DL (60-99); POTASSIUM, SERUM 3.7 MMOL/L (3.5-5.3); SODIUM, SERUM 138 MMOL/L (135-148)
[2016-12-27 04:19] LABS: BAND NEUTROPHILS 1 %; LYMPHOCYTES 15 %; LYMPHOCYTES ABSOLUTE (CALC) 1.44 10/3/uL (0.67-4.30); MICROCYTES 1+ (5-10/OIF) (0-5/OIF); MONOCYTES 3 %; MONOCYTES ABSOLUTE (CALC) 0.29 10/3/uL (0.21-1.20); NEUTROPHILS ABSOLUTE (CALC) 7.87 10/3/uL (2.02-8.40); PLATELET ESTIMATE DEC (ADEQUATE); RBC MORPHOLOGY ABN (NORMAL); SEGMENTED NEUTROPHIL (0) 81 %; TOTAL NUCLEATED CELLS 100
[2016-12-27 05:55] LABS: PROCALCITONIN 0.92 ng/mL (<0.5)
[2016-12-27 06:11] LABS: HEMATOCRIT 27.8 % (40.0-51.0); HEMOGLOBIN 9.2 g/dL (13.6-17.8)
[2016-12-27 17:23] LABS: HEMATOCRIT 25.6 % (40.0-51.0); HEMOGLOBIN 8.4 g/dL (13.6-17.8)
[2016-12-28 05:10] LABS: BUN (BLOOD UREA NITROGEN) 11 MG/DL (6-23); CALCIUM, SERUM 8.7 MG/DL (8.5-10.4); CHLORIDE, SERUM 100 MMOL/L (96-112); CO2 (CARBON DIOXIDE) 24 MMOL/L (24-34); CREATININE 2.11 MG/DL (0.70-1.30); GFR AFRICAN AMERICAN 38 ML/MIN (>=60); GFR NON AFRICAN AMERICAN 33 ML/MIN (>=60); GLUCOSE, SERUM 118 MG/DL (60-99); POTASSIUM, SERUM 3.6 MMOL/L (3.5-5.3); SODIUM, SERUM 139 MMOL/L (135-148)
[2016-12-28 05:12] LABS: BASOPHILS 0.2 %; BASOPHILS ABSOLUTE 0.02 10/3/uL (0.0-0.16); EOSINOPHILS 1.6 %; EOSINOPHILS ABSOLUTE 0.16 10/3/uL (0.0-0.53); HEMOGLOBIN 9.2 g/dL (13.6-17.8); IMMATURE GRANULOCYTES 0.5 %; IMMATURE GRANULOCYTES ABSOLUTE 0.05 10/3/uL (0.0-0.11); LYMPHOCYTES 14.7 %; LYMPHOCYTES ABSOLUTE 1.51 10/3/uL (0.67-4.30); MEAN CORPUS HGB CONC 32.5 g/dL (32.0-36.0); MEAN CORPUSCULAR HEMOGLOB 27.1 pg (26.0-34.0); MEAN CORPUSCULAR VOLUME 83.5 fL (80-100); MONOCYTES 13.5 %; MONOCYTES ABSOLUTE 1.38 10/3/uL (0.21-1.20); NEUTROPHILS 69.5 %; NEUTROPHILS ABSOLUTE 7.12 10/3/uL (2.02-8.40); NUCLEATED RED BLOOD CELLS 0.3 /100WBC (0-0); PLATELET COUNT 89 10/3/uL (150-400); RBC DISTRIBUTION WIDTH 22.5 % (12.0-16.0); RED CELL COUNT 3.39 10/6/uL (4.7-6.1); WHITE BLOOD CELLS 10.2 10/3/uL (4.5-10.5)
[2016-12-28 05:14] LABS: HEMATOCRIT 28.3 % (40.0-51.0); MANUAL DIFF NO %
[2016-12-28 06:08] LABS: HYPOCHROMIA 1+ (3-10/OIF) (0-2/OIF); PLATELET ESTIMATE DEC (ADEQUATE)
[2016-12-28 06:09] LABS: POLYCHROMASIA 1+ (2-5/OIF) (0-1/OIF); TARGET CELLS FEW (3-10/OIF) (0-1/OIF); TEARDROP SHAPED RBCS FEW (3-10/OIF)
[2016-12-28 06:10] LABS: ACANTHOCYTES FEW (3-10/OIF); SCHISTOCYTES FEW (3-10/OIF)
[2016-12-28 06:11] LABS: BURR CELLS 1+ (3-10/OIF) (0-2/OIF)
== END 2017-01-01 14:28 | disposition hospice, home (50) | DRG 291 ==
LOC: ER 14:08 → CCU 17:47
PROVIDERS: Emergency Medicine; Internal Medicine Critical Care Medicine; Internal Medicine Nephrology
PROC: 5A09457 Assistance with Respiratory Ventilation, 24-96 Consecutive Hours, Continuous Positive Airway Pressure (ICD-10-PCS; principal; 2016-12-16)
PROC: 05HM33Z Insertion of Infusion Device into Right Internal Jugular Vein, Percutaneous Approach (ICD-10-PCS; 2016-12-16)
PROC: 5A1D60Z (ICD-10-PCS; 2016-12-17)
DX: R57.0 Cardiogenic shock (principal); N18.6 End stage renal disease; J96.02 Acute respiratory failure with hypercapnia; I13.2 Hypertensive heart and chronic kidney disease with heart failure and with stage 5 chronic kidney disease, or end stage renal disease; G93.40 Encephalopathy, unspecified; E11.22 Type 2 diabetes mellitus with diabetic chronic kidney disease; D69.6 Thrombocytopenia, unspecified; I27.2 Other secondary pulmonary hypertension; I50.42 Chronic combined systolic (congestive) and diastolic (congestive) heart failure; Z51.5 Encounter for palliative care; I25.5 Ischemic cardiomyopathy; I48.2 Chronic atrial fibrillation; J44.9 Chronic obstructive pulmonary disease, unspecified; T46.0X5A Adverse effect of cardiac-stimulant glycosides and drugs of similar action, initial encounter; Z66 Do not resuscitate; E03.9 Hypothyroidism, unspecified; M10.9 Gout, unspecified; R62.7 Adult failure to thrive; Z99.2 Dependence on renal dialysis; Z95.0 Presence of cardiac pacemaker; I25.2 Old myocardial infarction; Z87.891 Personal history of nicotine dependence
CPT/HCPCS: 36569; 36600; 71010; 74000; 74177; 76705; 77001; 80048; 80053; 80069; 80076; 80162; 80202; 80305; 80307; 81001; 82009; 82040; 82140; 82330; 82533; 82565; 82805; 82947; 82962; 83605; 83735; 83880; 84100; 84132; 84145; 84439; 84443; 84484; 85014; 85018; 85025; 85049; 85610; 85730; 86022; 87040; 87493; 87493-59; 87641; 92610-GN; 93005; 93288; 94660; 96365; 96366; 96375; 96376; 99291; A9270-GY; C1751; C8929; G0257; J0583; J0610; J2405; J2543; J2997; J3370; P9047; Q9957; Q9967